=== PATIENT | male | born 1970 | race Hispanic/Latino ===

== ENCOUNTER 2016-04-01 17:09 | Inpatient (IN) | payer OTHER ==
[~2016-04-01] VITALS: Ht 165.1 cm; Wt 80.0 kg
[~2016-04-01 17:09] MED LIST: ACHD5005 PO; AZIT-21 PO; CYCL10TA9 PO; GENT3.5O18 OU; GUAI-549 PO; METH4TAB PO; NAPR-243 PO; NYST15CR3 TP; PENI500T PO; PRCD5U PO; SULF1TAB35 PO; SULF1TAB38 PO
--- OUTSIDE RECORDS SUMMARY | 2016-04-01 17:15 | XMS REPORT | Continuity of Care Document ---
Author Author [facility] Organization [facility] Address Unknown Phone Unavailable Care Team Providers Care Digital Strategy Director Name Role Phone NO, LOCAL PHYSICIAN PP Unavailable Insurance Providers Payer Name Policy Number Subscriber Name Relationship Self Pay Oswaldo Coronado Jr 01 Self / Same As Patient Advance Directives Directive Response Recorded Date Advance Directives N 10/07/12 1:38pm Problems No Known Problems or Medical conditions. Social History History Response Recorded Date/Time Alcohol Use Occasionally Uses 10/07/12 1: 38pm Recreational Drug Use N 10/07/12 1:38pm Allergies, Adverse Reactions, Alerts Allergen Type Severity Reaction Last Updated NKDA Allergy Mild 12/13/08 Medications Medication Dose Units Route Sig Qty Days Azithromycin (Zithromax Tab) 0 PO Z-MARC 6 Promethazine HCl/Codeine (Phenergan W/Codeine Syrup) 5 5ML PO QID 120 Guaifenesin/D-Methorphan Hb/Pe (Tussin Cf Cough & Cold Liquid) 118 Ml PO Response Recorded Date/Time Status not known Unknown Results Test Date Result Interp. Ref. Range Alanine Aminotransferase (ALT/SGPT) May 06, 2011 11: 10pm 72 U/L H 30-65 Albumin May 06, 2011 11:10pm 3.5 G/ DL N 3.4-5.0 Alkaline Phosphatase May 06, 2011 11:10pm 107 U/L N 50-136 Amylase Level February 27, 2008 9:45pm 72 U/L N 25-115 Anisocytosis May 06, 2011 11:10pm SLIGHT - Aspartate Amino Transf (AST/SGOT) May 06, 2011 11:10pm 49 U/L H 15-37 B-Type Natriuretic Peptide May 06, 2011 11:10pm 9.0 PG/ML N 5.0-100.0 BUN/Creatinine Ratio May 06, 2011 11:10pm 10 - Band Neutrophils May 06, 2011 11:10pm 4 % - Basophils # (Auto) May 06, 2011 11:10pm 0.0 10^3/uL N 0.0-0.1 Basophils % (Manual) May 06, 2011 11:10pm 0 % - Basophils (%) (Auto) May 06, 2011 11:10pm 0 % N 0-10 Blood Urea Nitrogen May 06, 2011 11:10pm 9 MG/DL N 7-18 Calcium Level May 06, 2011 11:10pm 7.3 MG/DL L 8.5-10.1 Carbon Dioxide Level May 06, 2011 11:10pm 27 MMOL/L N 21-32 Chloride Level May 06, 2011 11:10pm 100 MMOL/L L 101-110 Creatine Kinase MB May 06, 2011 11:10pm 3.9 NG/ML H 0.0-3.6 Creatinine May 06, 2011 11:10pm 0.9 MG/DL N 0.6-1.3 Eosinophils # (Auto) May 06, 2011 11:10pm 0.2 10^3/uL N 0.0-0.3 Eosinophils % (Manual) May 06, 2011 11:10pm 1 % - Eosinophils (%) (Auto) May 06, 2011 11:10pm 2 % N 0-10 Glucose Level May 06, 2011 11:10pm 134 MG/DL H 74-106 Hematocrit May 06, 2011 11:10pm 39 % L 40-54 Hemoglobin May 06, 2011 11:10pm 13.4 G/DL N 13.3-17.7 Lipase February 27, 2008 9:45pm 243 U/L N 114-286 Lymphocytes # (Auto) May 06, 2011 11:10pm 1.9 X 10^3 N 1.0-4.0 Lymphocytes % (Manual) May 06, 2011 11:10pm 31 % - Lymphocytes (%) (Auto) May 06, 2011 11:10pm 23 % N 12-44 Mean Corpuscular Hemoglobin May 06, 2011 11:10pm 29 PG N 25-34 Mean Corpuscular Hemoglobin Concent May 06, 2011 11: 10pm 34 G/DL N 32-36 Mean Corpuscular Volume May 06, 2011 11:10pm 83 FL N 80-99 Mean Platelet Volume May 06, 2011 11:10pm 10.0 FL N 7.4-10.4 Monocytes # (Auto) May 06, 2011 11:10pm 0.7 X 10^3 N 0.0-1.0 Monocytes % (Manual) May 06, 2011 11:10pm 6 % - Monocytes (%) (Auto) May 06, 2011 11:10pm 9 % N 0-12 Neutrophils # (Auto) May 06, 2011 11:10pm 5.4 X 10^3 N 1.8-7.8 Neutrophils % (Manual) May 06, 2011 11:10pm 58 % - Neutrophils (%) (Auto) May 06, 2011 11:10pm 66 % N 42-75 Platelet Count May 06, 2011 11:10pm 176 10^3/uL N 130-400 Potassium Level May 06, 2011 11:10pm 3.5 MMOL/L L 3.6-5.0 Reactive Lymphocytes February 27, 2008 9:40pm 5 % - Red Blood Count May 06, 2011 11:10pm 4.69 10^6/uL N 4.35-5.85 Red Cell Distribution Width May 06, 2011 11:10pm 13.7 % N 10.0-14.5 Sodium Level May 06, 2011 11:10pm 137 MMOL/L N 135-145 Total Bilirubin May 06, 2011 11:10pm 0.3 MG/DL N 0.0-1.0 Total Creatine Kinase May 06, 2011 11:10pm 540 U/L H 1-205 Total Protein May 06, 2011 11:10pm 7.2 G/DL N 6.4-8.2 Troponin I May 06, 2011 11:10pm < 0.10 NG/ML 0.00-0.10 Urine Bacteria December 03, 2008 12:01pm NEGATIVE - Urine Bilirubin December 03, 2008 12:01pm NEGATIVE - Urine Casts December 03, 2008 12:01pm NONE - Urine Clarity December 03, 2008 12:01pm CLEAR - Urine Color December 03, 2008 12:01pm YELLOW - Urine Crystals December 03, 2008 12:01pm NONE - Urine Culture Indicated December 03, 2008 12:01pm NO - Urine Glucose (UA) December 03, 2008 12:01pm NEGATIVE - Urine Ketones December 03, 2008 12:01pm NEGATIVE - Urine Leukocyte Esterase December 03, 2008 12:01pm NEGATIVE - Urine Mucus December 03, 2008 12:01pm NEGATIVE - Urine Nitrite December 03, 2008 12:01pm NEGATIVE - Urine Protein December 03, 2008 12:01pm NEGATIVE - Urine RBC December 03, 2008 12:01pm NONE /HPF - Urine Specific [place] December 03, 2008 12:01pm 1.015 L - Urine Squamous Epithelial Cells December 03, 2008 12:01pm NONE - Urine Urobilinogen December 03, 2008 12:01pm NORMAL MG/DL - Urine WBC December 03, 2008 12:01pm NONE /HPF - Urine pH December 03, 2008 12:01pm 6.5 - White Blood Count May 06, 2011 11:10pm 8.2 10^3/uL N 4.3-11.0 Serum Alcohol May 06, 2011 11:10pm 254 MG/DL H -5 Lab Scanned Report March 02, 2010 3:56pm Referred Lab Report [id number] - Estimat Glomerular Filtration Rate May 06, 2011 11: 10pm > 60 - Blood Morphology Comment February 27, 2008 9:40pm Normal - Creatine Kinase March 02, 2010 4:25pm 69 mg/dl N 21-170 Cardiac Panel Pathologist Review March 02, 2010 4:25pm SEE CARDIAC PATH REV - Urine RBC (Auto) December 03, 2008 12:01pm NEGATIVE - Procedures Procedure Code Date Influenza Types A,B Antigen (LAURA) 03/02 Encounters Encounter Location Date/Time Registered Emergency Room [facility] 10/07/12 1:32pm Departed Emergency Room [facility] 05/03 10:58pm
--- NOTE | 2016-04-01 17:44 | ED Lower Extremity ---
General Chief Complaint: Lower Extremity Stated Complaint: R LEG SWELLING/PAIN Source: patient Exam Limitations: no limitations History of Present Illness Time seen by provider: 17:43 Initial Comments To ER with right leg swelling and pain for the past 4 days. He states this swelling improves dramatically when he raises the right leg. He's had fevers and chills as well. He states that he did step on a piece of glass on the lateral aspect of the right foot a few weeks ago but he was able to remove the glass and had no problems. Febrile at 101 upon arrival to ER. He was incarcerated from February 12 to March 15. During that period of time he received a prescription for a course of steroids for pain and tingling in his right leg but he denies any redness or rash at that time. He's been off steroids since getting out of [facility] on Mar.15. He does not have a family physician Onset: just prior to arrival Severity: moderate Pain/Injury Location: right leg Method of Injury: unknown Modifying Factors: Worse With Movement Allergies and Home Medications Allergies Coded Allergies: No Known Drug Allergies (Unverified , 07/23/13) Home Medications Cyclobenzaprine Hcl 10 Mg Tablet #15 1 EACH PO Q8HR Prescribed by: STEWART REBOLLAR on 07/23/13 1125 Naproxen 500 Mg Tablet #20 1 EACH PO TID PRN PRN PAIN FOR PAIN Prescribed by: STEWART REBOLLAR on 07/23/13 1125 Sulfamethoxazole/Trimethoprim 1 Each Tablet #40 2 TAB PO BID FOR INFECTION Prescribed by: STEWART REBOLLAR on 07/23/13 1125 Constitutional: see HPI EENTM: see HPI Respiratory: no symptoms reported Cardiovascular: no symptoms reported Genitourinary: no symptoms reported Musculoskeletal: no symptoms reported Skin: see HPI Psychiatric/Neurological: No Symptoms Reported Past Pxpwkgs-Gkrgjp-Vngmob Hx Patient Social History Recent Foreign Travel: No Contact w/Someone Who Travel: No Immunizations Up To Date Tetanus Booster (TDap): Less than 5yrs Surgeries HX Surgeries: Yes (OPEN HEART SURGERY AT AGE 3) Respiratory Hx Respiratory Disorders: No Cardiovascular Hx Cardiac Disorders: Yes (AGE 3 OPEN HEART SURGERY) Neurological Hx Neurological Disorders: No Reproductive System Hx Reproductive Disorders: No Genitourinary Hx Genitourinary Disorders: No Gastrointestinal Hx Gastrointestinal Disorders: No Musculoskeletal Hx Musculoskeletal Disorders: No Endocrine Hx Endocrine Disorders: No HEENT HX ENT Disorders: No Cancer Hx Cancer: No Psychosocial Hx Psychiatric Problems: No Integumentary HX Skin/Integumentary Disorder: No Blood Transfusions Hx Blood Disorders: No Family Medical History Significant Family History: No Pertinent Family Hx Physical Exam Vital Signs Vital Sign - Last 12Hours 04/01/16 17:45 Temp 101.0 Pulse 88 Resp 16 B/P 144/83 Pulse Ox 97 O2 Delivery Room Air Capillary Refill : General Appearance: WD/WN no apparent distress HEENT: PERRL/EOMI normal ENT inspection Neck: non-tender full range of motion Respiratory: no respiratory distress no accessory muscle use Hips: bilateral hip non-tender, bilateral hip normal inspection, bilateral hip normal range of motion Legs: right leg pain, right leg soft tissue tenderness, right leg swelling, right leg other (right leg is warm compared to the left, markedly swollen compared to the left, tender and erythematous.) Knees: bilateral knee non-tender, bilateral knee normal inspection, bilateral knee normal range of motion Ankles: bilateral ankle non-tender, bilateral ankle normal inspection, bilateral ankle normal range of motion Feet: bilateral foot non-tender, bilateral foot normal inspection, bilateral foot normal range of motion, bilateral foot other (the aforementioned area over the fifth metatarsal on the foot where he stepped on glass appears healed and without erythema or fluctuance. ) Neurologic/Psychiatric: alert normal mood/affect oriented x 3 Skin: normal color warm/dry Progress/Results/Core Measures Results/Orders Lab Results Laboratory Tests Test 04/01/16 17:35 04/01/16 17:45 Range/Units Anion Gap 11 5-14 MMOL/L BUN/Creatinine Ratio 20 Basophils # (Auto) 0.0 0.0-0.1 10^3/uL Basophils (%) (Auto) 0 0-10 % Blood Urea Nitrogen 21 H 7-18 MG/DL Calcium Level 8.7 8.5-10.1 MG/DL Carbon Dioxide Level 22 21-32 MMOL/L Chloride Level 98 98-107 MMOL/L Creatinine 1.05 0.60-1.30 MG/DL Eosinophils # (Auto) 0.0 0.0-0.3 10^3/uL Eosinophils (%) (Auto) 0 0-10 % Estimat Glomerular Filtration Rate > 60 Glucose Level 131 H 70-105 MG/DL Hematocrit 39 L 40-54 % Hemoglobin 13.3 13.3-17.7 G/DL Lymphocytes # (Auto) 1.1 1.0-4.0 X 10^3 Lymphocytes (%) (Auto) 6 L 12-44 % Mean Corpuscular Hemoglobin 28 25-34 PG Mean Corpuscular Hemoglobin Concent 35 32-36 G/DL Mean Corpuscular Volume 80 80-99 FL Mean Platelet Volume 10.7 H 7.4-10.4 FL Monocytes # (Auto) 1.1 H 0.0-1.0 X 10^3 Monocytes (%) (Auto) 6 0-12 % Neutrophils # (Auto) 15.9 H 1.8-7.8 X 10^3 Neutrophils (%) (Auto) 88 H 42-75 % Platelet Count 230 130-400 10^3/uL Potassium Level 3.7 3.6-5.0 MMOL/L Red Blood Count 4.83 4.35-5.85 10^6/uL Red Cell Distribution Width 14.0 10.0-14.5 % Sodium Level 131 L 135-145 MMOL/L White Blood Count 18.0 H 4.3-11.0 10^3/uL Lactic Acid Level 2.0 0.5-2.0 MMOL/L My Orders Orders-MARJ BARDALES APRN Cbc With Automated Diff (04/01/16 17:39) Basic Metabolic Panel (04/01/16 17:39) Saline Lock/Iv-Start (04/01/16 17:39) Blood Culture (04/01/16 17:39) Lactic Acid Analyzer (04/01/16 17:39) Fentanyl Injection (Sublimaze Injection (04/01/16 17:45) Clindamycin 900 Mg/50 Ml Ivpb (Cleocin P (04/01/16 17:45) Us Venous Lower Ext Rt (04/01/16 17:44) Ibuprofen Tablet (Motrin Tablet) (04/01/16 18:00) Vancomycin Injection (Vancomycin Injecti (04/01/16 18:00) Vancomycin Injection (Vancomycin Injecti (04/01/16 18:00) Manual Differential (04/01/16 17:35) Medications Given in ED Current Medications Medications Dose Ordered Sig/Nelson Route Start Time Stop Time Status Last Admin Dose Admin Fentanyl Citrate 50 mcg ONCE ONCE IVP 04/01/16 17:45 04/01/16 17:46 DC 04/01/16 18:17 50 MCG Ibuprofen 800 mg ONCE ONCE PO 04/01/16 18:00 04/01/16 18:01 DC 04/01/16 18:19 800 MG Vital Signs/I&O Vital Sign - Last 12Hours 04/01/16 17:45 Temp 101.0 Pulse 88 Resp 16 B/P 144/83 Pulse Ox 97 O2 Delivery Room Air Diagnostic Imaging Diagonstic Imaging: Ultrasound Comments NAME: PENNY CORONADO [facility] REC#: [id number] PT STATUS: ADM IN : 1970 PHYSICIAN: MARJ BARDALES APRN ADMIT DATE: 04/01/16/4TH Draft Date of Exam:04/01/16 US VENOUS LOWER EXT RT PROCEDURE: US right lower extremity venous. INDICATION: Swelling, redness EXAMINATION: Right lower extremity venous Doppler 04/01/2016 TECHNIQUE: Waveform and spectral analysis of the lower extremity venous structures. FINDINGS: There is no evidence for deep vein thrombosis with normal compressibility, augmentation and spontaneity of all visualized venous structures. IMPRESSION: 1. No evidence for deep vein thrombosis. Dictated on workstation # [id number] Dict: 04/01/161811 Trans: 04/01/16 1835 [facility] [id number] Interpreted by: MELANIE ARANA MD Electronically signed by: Departure Communication Time/Spoke to Admitting Phy: 18:28 Communication I spoke with Dr. Espinal. We will admit the patient for IV Ancef. Impression Impression: Primary Impression: Cellulitis of right lower extremity Disposition: HOME, SELF-CARE Condition: Stable Decision to Admit Reason: Admit from ER (General) Decision to Admit/Date: Apr 01, 2016 Time/Decision to Admit Time: 18:15 Departure-Patient Inst. Referrals: NO,LOCAL PHYSICIAN (PCP/Family) Primary Care Physician MARJ BARDALES APRN Apr 01, 2016 17:44
[2016-04-01] MEDS ORDERED: CLINDAMYCIN 900 MG/50 ML IVPB 50 ML IV ONE (17:45)
[2016-04-01] MEDS ORDERED: fentaNYL INJECTION 100 MCG/2 ML AMP IVP ONE (17:45)
[2016-04-01 17:51] LABS: BASOPHILS % (AUTO) 0 % (0-10); EOSINOPHILS % (AUTO) 0 % (0-10); LYMPHOCYTES # (AUTO) 1.1 X 10^3 (1.0-4.0); LYMPHOCYTES % (AUTO) 6 % (12-44); MEAN CORPUSCULAR HEMOGLOBIN 28 PG (25-34); MEAN CORPUSCULAR HGB CONC 35 G/DL (32-36); MEAN CORPUSCULAR VOLUME 80 FL (80-99); MEAN PLATELET VOLUME 10.7 FL (7.4-10.4); MONOCYTES # (AUTO) 1.1 X 10^3 (0.0-1.0); MONOCYTES % (AUTO) 6 % (0-12); NEUTROPHILS # (AUTO) 15.9 X 10^3 (1.8-7.8); NEUTROPHILS % (AUTO) 88 % (42-75); PLATELET COUNT 230 10^3/uL (130-400); RED BLOOD COUNT 4.83 10^6/uL (4.35-5.85)
[2016-04-01] MEDS ORDERED: VANCOMYCIN INJECTION 1,250 MG in NS (IVPB) 250 ML IV SCH ×4 (18:00)
[2016-04-01] MEDS ORDERED: IBUPROFEN 800 MG (MOTRIN) TAB PO ONE (18:00)
[2016-04-01 18:07] LABS: ANION GAP 11 MMOL/L (5-14); BLOOD UREA NITROGEN 21 MG/DL (7-18); BUN/CREATININE RATIO 20; CALCIUM 8.7 MG/DL (8.5-10.1); CARBON DIOXIDE 22 MMOL/L (21-32); CHLORIDE 98 MMOL/L (98-107); CREATININE SERUM 1.05 MG/DL (0.60-1.30); GFR ESTIMATED > 60; GLUCOSE 131 MG/DL (70-105); POTASSIUM 3.7 MMOL/L (3.6-5.0); SODIUM 131 MMOL/L (135-145)
[2016-04-01] MEDS ORDERED: ceFAZolin INJECTION 1,000 MG in NORMAL SALINE (BAXTER MINI) 50 ML IV ONE (18:30)
--- NOTE | 2016-04-01 18:36 | Diagnostic Imaging Report ---
PROCEDURE: US right lower extremity venous. INDICATION: Swelling, redness EXAMINATION: Right lower extremity venous Doppler 04/01/2016 TECHNIQUE: Waveform and spectral analysis of the lower extremity venous structures. FINDINGS: There is no evidence for deep vein thrombosis with normal compressibility, augmentation and spontaneity of all visualized venous structures. IMPRESSION: 1. No evidence for deep vein thrombosis. Dictated by: Dictated on workstation # [id number]
[2016-04-01 19:06] VITALS: BP 106/67
[2016-04-01] MEDS ORDERED: CATHETER FLUSH 10 ML SYR IV PRN (20:45)
[2016-04-01 22:00] LABS: EOSINOPHILS % (MANUAL) 6 %; LYMPHOCYTES % (MANUAL) 9 %; NEUTROPHILS % (MANUAL) 80 %
[2016-04-01] MEDS: CATHETER FLUSH 10 ML SYR IV SCH (22:00)
[2016-04-01] MEDS: NS IV 1000 ML 1,000 ML IV SCH (22:01)
[2016-04-01] MEDS: LACTOBACILLUS Acidoph/Bulgar (LACTINEX/FLORANEX) TAB PO SCH (22:04)
[2016-04-01] MEDS: ceFAZolin 1 GM/NS 50 ML IVPB IV SCH ×2 (22:05)
[2016-04-02] VITALS (7 sets, daily range): BP systolic 112–134; BP diastolic 57–73
[2016-04-02] MEDS: ACETAMINOPHEN 325 MG TABLET/CAPLET (TYLENOL) PO PRN ×2 (04:42→13:51)
[2016-04-02 05:14] LABS: BASOPHILS % (AUTO) 0 % (0-10); EOSINOPHILS # (AUTO) 0.1 10^3/uL (0.0-0.3); EOSINOPHILS % (AUTO) 0 % (0-10); LYMPHOCYTES # (AUTO) 1.1 X 10^3 (1.0-4.0); LYMPHOCYTES % (AUTO) 6 % (12-44); MEAN CORPUSCULAR HEMOGLOBIN 27 PG (25-34); MEAN CORPUSCULAR HGB CONC 34 G/DL (32-36); MEAN CORPUSCULAR VOLUME 80 FL (80-99); MEAN PLATELET VOLUME 10.5 FL (7.4-10.4); MONOCYTES # (AUTO) 1.2 X 10^3 (0.0-1.0); MONOCYTES % (AUTO) 7 % (0-12); NEUTROPHILS # (AUTO) 15.4 X 10^3 (1.8-7.8); NEUTROPHILS % (AUTO) 87 % (42-75); PLATELET COUNT 202 10^3/uL (130-400); RED BLOOD COUNT 4.49 10^6/uL (4.35-5.85); RED CELL DISTRIBUTION WIDTH 13.9 % (10.0-14.5); WHITE BLOOD COUNT 17.8 10^3/uL (4.3-11.0)
[2016-04-02] MEDS: CATHETER FLUSH 10 ML SYR IV SCH ×3 (05:45→21:15)
[2016-04-02] MEDS: ceFAZolin 1 GM/NS 50 ML IVPB IV SCH ×6 (05:48→21:15)
[2016-04-02] MEDS: NS IV 1000 ML 1,000 ML IV SCH ×2 (05:49→08:21)
[2016-04-02] MEDS ORDERED: FLU TRIvalent (5 YOA+) 2016-17 (AFLURIA) 0.5 ML IM ONE (07:15)
[2016-04-02] MEDS: LACTOBACILLUS Acidoph/Bulgar (LACTINEX/FLORANEX) TAB PO SCH ×2 (08:21→21:15)
[2016-04-02] MEDS: IBUPROFEN 800 MG (MOTRIN) TAB PO PRN ×2 (08:29→19:13)
--- NOTE | 2016-04-02 12:21 | History & Physical-Hospitalist ---
HPI History of Present Illness: HPI/Chief Complaint this is a 45-year-old male who presents with a 2-3 day history of increased right leg pain swelling and erythema. He had had an injury by stepping on some glass about 2-3 days prior to the pain and swelling of his leg. He does not have a car and has to walk everywhere he goes. pain had finally gotten so bad that he was unable to ambulate. Venous Doppler was negative for DVT. This morning the leg is less erythematous is afebrile with a white count remains elevated at 17,000 Source: patient Exam Limitations: no limitations Date Seen 04/02/16 Attending Physician Lizzy Ball MD PCP No,Local Physician Referring Physician Date of Admission Apr 01, 2016 at 18:11 Home Medications & Allergies Home Medications Reviewed patient Home Medication Reconciliation Form Allergies Coded Allergies: No Known Drug Allergies (Unverified , 07/23/13) Past Ummrall-Megnae-Izoiiw Hx Patient Social History Marrital Status: single Employed/Student: unemployed Alcohol Use: Occasionally Uses Recreational Drug Use: No Smoking Status: Never a Smoker Physical Abuse Screen: No Sexual Abuse: No Recent Foreign Travel: No Contact w/other who traveled: No Recent Hopitalizations: No Recent Infectious Disease Expo: No Immunizations Up To Date Tetanus Booster (TDap): Less than 5yrs Seasonal Allergies Seasonal Allergies: No Surgeries HX Surgeries: Yes (OPEN HEART SURGERY AT AGE 3) Surgeries: Valve Replacement Respiratory Hx Respiratory Disorders: No Cardiovascular Hx Cardiovascular Disorders: Yes (AGE 3 OPEN HEART SURGERY) Cardiac Disorders: Valvular Heart Disease Neurological Hx Neurological Disorders: No Reproductive System Hx Reproductive Disorders: No Genitourinary Hx Genitourinary Disorders: No Gastrointestinal Hx Gastrointestinal Disorders: No Musculoskeletal Hx Musculoskeletal Disorders: No Endocrine Hx Endocrine Disorders: No HEENT HX ENT Disorders: No Cancer Hx Cancer: No Psychosocial Hx Psychiatric Problems: No Integumentary HX Skin/Integumentary Disorder: No Blood Transfusions Hx Blood Disorders: No Adverse Reaction to a Blood Tr: No Family Medical History Significant Family History: No Pertinent Family Hx Family Hx: Diabetes mellitus 19 MOTHER Hypertension 19 FATHER 19 MOTHER Review of Systems Constitutional: fever EENTM: no symptoms reported Respiratory: no symptoms reported Cardiovascular: no symptoms reported Gastrointestinal: no symptoms reported Genitourinary: no symptoms reported Musculoskeletal: muscle pain Skin: change in color Psychiatric/Neurological: No Symptoms Reported Physical Exam Physical Exam Vital Signs Vital Sign - Last 12Hours 04/01/16 17:45 Temp 101.0 Pulse 88 Resp 16 B/P 144/83 Pulse Ox 97 O2 Delivery Room Air Capillary Refill : Greater Than 3 Seconds General Appearance: No Apparent Distress HEENT: Normal ENT Inspection Respiratory: Lungs Clear Normal Breath Sounds No Accessory Muscle Use No Respiratory Distress Cardiovascular: Regular Rate, Rhythm No Gallop Systolic Murmur (03/17) Gastrointestinal: Non Tender Soft Extremity: Calf Tenderness Inflammation Other (diffuse erythema with almost bullous formation down from yesterday) Neurologic/Psychiatric: Alert Oriented x3 No Motor/Sensory Deficits Normal Mood/Affect body maker II-XII Norm as Tested Skin: Erythema Results Results/Procedures Lab Laboratory Tests 04/01/16 17:35 04/02/16 05:00 Assessment/Plan Admission Diagnosis 1. cellulitis most consistent with strep organism-on Ancef day number 2 with improvement 2. 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 Poor social situation-social work consult in the morning 4. mild hyperglycemia we'll check a hemoglobin A1c Clinical Quality Measures DVT/VTE Risk/Contraindication: Risk Factor Score Per Nursin RFS Level Per Nursing on Admit: 3=High LIZZY BALL MD Apr 02, 2016 12:21
[2016-04-02] MEDS: ENOXAPARIN 40 MG/0.4 ML (LOVENOX) SYR SC SCH (13:34)
[2016-04-03] MEDS: ACETAMINOPHEN 325 MG TABLET/CAPLET (TYLENOL) PO PRN ×2 (01:26→21:12)
[2016-04-03 03:55] VITALS: BP 119/76
[2016-04-03 05:17] LABS: BASOPHILS % (AUTO) 0 % (0-10); EOSINOPHILS # (AUTO) 0.1 10^3/uL (0.0-0.3); EOSINOPHILS % (AUTO) 1 % (0-10); LYMPHOCYTES # (AUTO) 1.5 X 10^3 (1.0-4.0); LYMPHOCYTES % (AUTO) 11 % (12-44); MEAN CORPUSCULAR HEMOGLOBIN 27 PG (25-34); MEAN CORPUSCULAR HGB CONC 34 G/DL (32-36); MEAN CORPUSCULAR VOLUME 82 FL (80-99); MEAN PLATELET VOLUME 11.1 FL (7.4-10.4); MONOCYTES # (AUTO) 1.3 X 10^3 (0.0-1.0); MONOCYTES % (AUTO) 9 % (0-12); NEUTROPHILS # (AUTO) 11.4 X 10^3 (1.8-7.8); NEUTROPHILS % (AUTO) 80 % (42-75); PLATELET COUNT 237 10^3/uL (130-400); RED BLOOD COUNT 4.46 10^6/uL (4.35-5.85); RED CELL DISTRIBUTION WIDTH 14.2 % (10.0-14.5); WHITE BLOOD COUNT 14.3 10^3/uL (4.3-11.0)
[2016-04-03] MEDS: ceFAZolin 1 GM/NS 50 ML IVPB IV SCH ×6 (05:22→21:03)
[2016-04-03] MEDS: CATHETER FLUSH 10 ML SYR IV SCH ×3 (05:22→21:03)
[2016-04-03 05:38] LABS: ANION GAP 7 MMOL/L (5-14); BLOOD UREA NITROGEN 10 MG/DL (7-18); BUN/CREATININE RATIO 13; CALCIUM 8.5 MG/DL (8.5-10.1); CARBON DIOXIDE 25 MMOL/L (21-32); CHLORIDE 102 MMOL/L (98-107); CREATININE SERUM 0.76 MG/DL (0.60-1.30); GFR ESTIMATED > 60; GLUCOSE 115 MG/DL (70-105); POTASSIUM 3.1 MMOL/L (3.6-5.0); SODIUM 134 MMOL/L (135-145)
[2016-04-03 08:00] VITALS: BP 117/63
--- NOTE | 2016-04-03 08:59 | Progress Note-Hospitalist ---
Subjective HPI/CC On Admission this is a 45-year-old male who presents with a 2-3 day history of increased right leg pain swelling and erythema. He had had an injury by stepping on some glass about 2-3 days prior to the pain and swelling of his leg. He does not have a car and has to walk everywhere he goes. pain had finally gotten so bad that he was unable to ambulate. Venous Doppler was negative for DVT. This morning the leg is less erythematous is afebrile with a white count remains elevated at 17,000 Date Seen 04/03/16 Subjective/Events-last exam patient complains primarily of her right leg pain but on appearance looks better. Discussed with him that he is diabetic, he acknowledges that all of his family is diabetic so he is not surprised. Review of Systems Musculoskeletal: : leg pain Objective Exam Vital Signs Vital Sign - Last 12Hours 04/01/16 17:45 Temp 101.0 Pulse 88 Resp 16 B/P 144/83 Pulse Ox 97 O2 Delivery Room Air Capillary Refill : Less Than 3 SecondsGreater Than 3 Seconds General Appearance: WD/WN HEENT: Normal ENT Inspection Neck: Supple Respiratory: Lungs Clear Normal Breath Sounds No Accessory Muscle Use No Respiratory Distress Cardiovascular: Regular Rate, Rhythm No Gallop No Murmur Gastrointestinal: Normal Bowel Sounds Soft Extremity: Calf Tenderness Inflammation Pedal Edema Neurologic/Psychiatric: Alert Oriented x3 Normal Mood/Affect Skin: Erythema Rash Results/Procedures Lab Laboratory Tests 04/03/16 04:47 Assessment/Plan Assessment and Plan Assess & Plan/Chief Complaint 1. severe cellulitis pulses are intact most likely secondary to strep organism day number 3 Ancef 2. Newly diagnosed type II diabetes. We'll begin diabetes education and begin metformin. He will need rn social work since he has no insurance ANDRIY BALL MD Apr 03, 2016 8:59 am
[2016-04-03] MEDS: LACTOBACILLUS Acidoph/Bulgar (LACTINEX/FLORANEX) TAB PO SCH ×2 (09:56→21:03)
[2016-04-03 12:00] VITALS: BP 140/77
[2016-04-03] MEDS: KCL 20 MEQ TAB (K-DUR) PO SCH (12:14)
[2016-04-03] MEDS: ENOXAPARIN 40 MG/0.4 ML (LOVENOX) SYR SC SCH (12:14)
[2016-04-03] MEDS ORDERED: IBUP-30 PO (12:28)
[2016-04-03] MEDS ORDERED: ACET-2267 PO (12:28)
[2016-04-03] MEDS: IBUPROFEN 800 MG (MOTRIN) TAB PO PRN (15:46)
[2016-04-03 16:21] VITALS: BP 127/64
[2016-04-03] MEDS: metFORMIN 500 MG (GLUCOPHAGE) TAB PO SCH (16:33)
[2016-04-03 20:00] VITALS: BP 122/72
[2016-04-03] MEDS ORDERED: NORMAL SALINE (BAXTER MINI) 50 ML IV ONE (20:43)
[2016-04-03] MEDS ORDERED: ceFAZolin 1,000 MG (ANCEF) VIAL ONE (20:43)
[2016-04-03 22:00] VITALS: BP 122/72
[2016-04-04] VITALS (7 sets, daily range): BP systolic 116–145; BP diastolic 57–88
[2016-04-04] MEDS: IBUPROFEN 800 MG (MOTRIN) TAB PO PRN ×4 (00:36→23:52)
[2016-04-04] MEDS ORDERED: ceFAZolin 1,000 MG (ANCEF) VIAL ONE ×2 (04:39→21:01)
[2016-04-04] MEDS ORDERED: NORMAL SALINE (BAXTER MINI) 50 ML IV ONE ×2 (04:39→21:02)
[2016-04-04] MEDS: ceFAZolin 1 GM/NS 50 ML IVPB IV SCH ×6 (05:33→21:29)
[2016-04-04] MEDS: CATHETER FLUSH 10 ML SYR IV SCH ×3 (05:33→21:30)
[2016-04-04] MEDS: KCL 20 MEQ TAB (K-DUR) PO SCH (06:13)
[2016-04-04] MEDS: metFORMIN 500 MG (GLUCOPHAGE) TAB PO SCH ×2 (06:13→16:56)
[2016-04-04] MEDS: LACTOBACILLUS Acidoph/Bulgar (LACTINEX/FLORANEX) TAB PO SCH ×2 (08:04→21:29)
--- NOTE | 2016-04-04 11:02 | Progress Note-Hospitalist ---
Standard Progress Note Progress Notes/Assess & Plan Date Seen 04/04/16 Diagnosis 1. cellulitis most consistent with strep organism-on Ancef day number 2 with improvement 2. 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 Poor social situation-social work consult in the morning 4. mild hyperglycemia we'll check a hemoglobin A1c Assess & Plan/Chief Complaint The patient reports his leg to be less painful today. 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 His white blood count has continued to decline during the hospitalization. It is also noted that his blood sugars appear controlled on metformin alone. He reports that the virtually everyone in his family has adult onset diabetes. Physical exam: He is alert and oriented lungs are clear to auscultation. CV is regular without murmur. Examination of the right lower extremity shows that the erythema has clearly retreated from the permanent markings placed at admission. At this point he remains quite erythematous and tender and warm beginning at about 10 cm from the tibial tuberosity and downward to the malleolus. The calf itself is tightly swollen. There is a linear blister/ ulceration on the posterior calf which she has a rockwell exudate at this point does not appear to be dripping. Impression: Cellulitis right lower extremity, improving 2.new diagnosis diabetes mellitus type II, non-insulin requiring. Plan: The patient will remain inpatient until the erythema is virtually gone and the right calf approximates the diameter of the left. Labs Laboratory Tests 04/03/16 04:47 WILLIAM KISER MD Apr 04, 2016 11:02
[2016-04-04] MEDS: ENOXAPARIN 40 MG/0.4 ML (LOVENOX) SYR SC SCH (11:36)
[2016-04-05 03:44] VITALS: BP 139/86
[2016-04-05] MEDS ORDERED: ceFAZolin 1,000 MG (ANCEF) VIAL ONE (03:44)
[2016-04-05] MEDS ORDERED: NORMAL SALINE (BAXTER MINI) 50 ML IV ONE (03:45)
[2016-04-05] MEDS: metFORMIN 500 MG (GLUCOPHAGE) TAB PO SCH ×2 (06:15→17:02)
[2016-04-05] MEDS: ceFAZolin 1 GM/NS 50 ML IVPB IV SCH ×2 (06:15)
[2016-04-05] MEDS: KCL 20 MEQ TAB (K-DUR) PO SCH (06:15)
[2016-04-05] MEDS: CATHETER FLUSH 10 ML SYR IV SCH ×3 (06:15→21:11)
[2016-04-05 07:50] VITALS: BP 154/94
[2016-04-05] MEDS: LACTOBACILLUS Acidoph/Bulgar (LACTINEX/FLORANEX) TAB PO SCH ×2 (08:56→20:23)
[2016-04-05] MEDS: IBUPROFEN 800 MG (MOTRIN) TAB PO PRN ×2 (08:56→20:23)
[2016-04-05 10:36] LABS: BASOPHILS % (AUTO) 0 % (0-10); EOSINOPHILS # (AUTO) 0.1 10^3/uL (0.0-0.3); EOSINOPHILS % (AUTO) 1 % (0-10); LYMPHOCYTES # (AUTO) 1.5 X 10^3 (1.0-4.0); LYMPHOCYTES % (AUTO) 9 % (12-44); MEAN CORPUSCULAR HEMOGLOBIN 27 PG (25-34); MEAN CORPUSCULAR HGB CONC 33 G/DL (32-36); MEAN CORPUSCULAR VOLUME 82 FL (80-99); MEAN PLATELET VOLUME 9.7 FL (7.4-10.4); MONOCYTES % (AUTO) 6 % (0-12); NEUTROPHILS # (AUTO) 13.6 X 10^3 (1.8-7.8); NEUTROPHILS % (AUTO) 84 % (42-75); PLATELET COUNT 363 10^3/uL (130-400); RED BLOOD COUNT 4.73 10^6/uL (4.35-5.85); RED CELL DISTRIBUTION WIDTH 14.2 % (10.0-14.5); WHITE BLOOD COUNT 16.2 10^3/uL (4.3-11.0)
[2016-04-05 10:54] LABS: ALANINE AMINOTRANSFERASE 13 U/L (0-55); ANION GAP 9 MMOL/L (5-14); ASPARTATE AMINO TRANSFERASE 11 U/L (5-34); BILIRUBIN,TOTAL 0.3 MG/DL (0.1-1.0); BLOOD UREA NITROGEN 11 MG/DL (7-18); BUN/CREATININE RATIO 15; CALCIUM 8.9 MG/DL (8.5-10.1); CARBON DIOXIDE 25 MMOL/L (21-32); CHLORIDE 102 MMOL/L (98-107); CREATININE SERUM 0.75 MG/DL (0.60-1.30); GFR ESTIMATED > 60; GLUCOSE 110 MG/DL (70-105); POTASSIUM 4.2 MMOL/L (3.6-5.0); SODIUM 136 MMOL/L (135-145); TOTAL PROTEIN 7.3 G/DL (6.4-8.2)
--- NOTE | 2016-04-05 11:18 | Progress Note-Hospitalist ---
Standard Progress Note Progress Notes/Assess & Plan Date Seen 04/05/16 Diagnosis 1. cellulitis most consistent with strep organism-on Ancef day number 2 with improvement 2. 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 Poor social situation-social work consult in the morning 4. mild hyperglycemia we'll check a hemoglobin A1c Assess & Plan/Chief Complaint The patient reports that his leg generally feels better however when he steps down on the floor he gets pain in the body of the calf muscle. He also notes some throbbing during the night. He is afebrile. His white count has not returned to the normal range and is in fact up today from 14-16,000. Physical exam: Lungs are clear to auscultation. CV is regular without murmur. The right calf is clearly improving with regard to color however it is quite swollen. There is pain to dorsiflexion of the foot. There is some eschar formation on the posterior blister. Impression: Continuing improvement, cellulitis right calf Plan: Continue present IV antibiotics Labs Laboratory Tests 04/05/16 10:25 WILLIAM KISER MD Apr 05, 2016 11:18
[2016-04-05 11:35] VITALS: BP 151/82
[2016-04-05] MEDS: ENOXAPARIN 40 MG/0.4 ML (LOVENOX) SYR SC SCH (12:20)
[2016-04-05] MEDS: ceFAZolin INJECTION 1,000 MG in NORMAL SALINE (BAXTER MINI) 50 ML IV SCH ×2 (13:55→21:11)
[2016-04-05 15:45] VITALS: BP 142/87
[2016-04-05 20:10] VITALS: BP 154/96
[2016-04-05] MEDS: ONDANSETRON 4 MG/2 ML (SDV) Z0FRAN IVP PRN (21:36)
[2016-04-06] VITALS: BP 151/81
[2016-04-06 04:00] VITALS: BP 147/95
[2016-04-06] MEDS: ceFAZolin INJECTION 1,000 MG in NORMAL SALINE (BAXTER MINI) 50 ML IV SCH ×3 (05:41→21:01)
[2016-04-06] MEDS: HYDROcodone/APAP 5 MG/325 MG (LORTAB) TAB PO PRN ×3 (05:44→21:35)
[2016-04-06 05:57] LABS: BASOPHILS % (AUTO) 0 % (0-10); EOSINOPHILS # (AUTO) 0.1 10^3/uL (0.0-0.3); EOSINOPHILS % (AUTO) 1 % (0-10); LYMPHOCYTES # (AUTO) 1.7 X 10^3 (1.0-4.0); LYMPHOCYTES % (AUTO) 15 % (12-44); MEAN CORPUSCULAR HEMOGLOBIN 27 PG (25-34); MEAN CORPUSCULAR HGB CONC 33 G/DL (32-36); MEAN CORPUSCULAR VOLUME 82 FL (80-99); MEAN PLATELET VOLUME 9.4 FL (7.4-10.4); MONOCYTES % (AUTO) 9 % (0-12); NEUTROPHILS # (AUTO) 8.5 X 10^3 (1.8-7.8); NEUTROPHILS % (AUTO) 75 % (42-75); PLATELET COUNT 335 10^3/uL (130-400); RED BLOOD COUNT 4.58 10^6/uL (4.35-5.85); WHITE BLOOD COUNT 11.3 10^3/uL (4.3-11.0)
[2016-04-06] MEDS: KCL 20 MEQ TAB (K-DUR) PO SCH (06:15)
[2016-04-06 06:16] LABS: ALANINE AMINOTRANSFERASE 15 U/L (0-55); ALBUMIN 2.9 G/DL (3.2-4.5); ANION GAP 6 MMOL/L (5-14); ASPARTATE AMINO TRANSFERASE 16 U/L (5-34); BILIRUBIN,TOTAL 0.3 MG/DL (0.1-1.0); BLOOD UREA NITROGEN 12 MG/DL (7-18); BUN/CREATININE RATIO 17; CALCIUM 8.8 MG/DL (8.5-10.1); CARBON DIOXIDE 26 MMOL/L (21-32); CHLORIDE 102 MMOL/L (98-107); CREATININE SERUM 0.71 MG/DL (0.60-1.30); GFR ESTIMATED > 60; GLUCOSE 115 MG/DL (70-105); POTASSIUM 4.3 MMOL/L (3.6-5.0); SODIUM 134 MMOL/L (135-145); TOTAL PROTEIN 7.2 G/DL (6.4-8.2)
[2016-04-06] MEDS: metFORMIN 500 MG (GLUCOPHAGE) TAB PO SCH ×2 (06:16→17:19)
[2016-04-06] MEDS: CATHETER FLUSH 10 ML SYR IV SCH ×3 (06:17→21:01)
[2016-04-06 08:00] VITALS: BP 133/74
[2016-04-06] MEDS: LACTOBACILLUS Acidoph/Bulgar (LACTINEX/FLORANEX) TAB PO SCH ×2 (08:20→20:00)
--- NOTE | 2016-04-06 10:22 | Progress Note-Hospitalist ---
Progress Note HPI/CC on Admission this is a 45-year-old male who presents with a 2-3 day history of increased right leg pain swelling and erythema. He had had an injury by stepping on some glass about 2-3 days prior to the pain and swelling of his leg. He does not have a car and has to walk everywhere he goes. pain had finally gotten so bad that he was unable to ambulate. Venous Doppler was negative for DVT. This morning the leg is less erythematous is afebrile with a white count remains elevated at 17,000 Progress Notes/Assess & Plan Date Seen 04/06/16 Diagonsis/Assessment & Plan Patient doing well since right posterior calf abscess spontaneously ruptured I have consulted wound care for evaluation and management Reports the pain has been much improved but requiring hydrocodone Reviewed all labs noting white count now is 11 No fever, vital signs stable, pleasant, oriented 3 Regular rate and rhythm, clear to auscultation bilaterally Right leg in dressing but picture taken shows wound posterior calf extensive in nature draining serous drainage and improvement of erythema Assessment: Severe right leg cellulitis with abscess status post spontaneous rupture New onset diabetes Plan: Continue IV antibiotics Wound care consult Monitor labs KRISHAN BAR DO Apr 06, 2016 10:22
[2016-04-06] MEDS: ENOXAPARIN 40 MG/0.4 ML (LOVENOX) SYR SC SCH (11:31)
[2016-04-06 12:00] VITALS: BP 137/81
[2016-04-06] MEDS: IBUPROFEN 800 MG (MOTRIN) TAB PO PRN (13:39)
[2016-04-06 17:00] VITALS: BP 152/83
--- NOTE | 2016-04-06 17:51 | Wound Care Progress Note ---
Subjective Subjective Subjective/Events-last exam 45 year old male with previously untreated diabetes mellitus and a progressive inflammation and necrosis of the R calf. Admitted for severe cellulitis, with the only antecedent event being a minor cut to his foot a week ago which has since healed. Severe pain in leg. PMH: Open Heart operation at age 3, Diabetes mellitus, previously unrecognized. SH: Single, non-smoker, unemployed, EtOH+ FH: + DM, + HTN. Review of Systems General: Chills HEENT: No Head Aches Pulmonary: No Dyspnea Cardiovascular: No: Chest Pain Gastrointestinal: No: Nausea Genitourinary: No Dysuria Musculoskeletal: : leg pain Neurological: No: Change in speech, Weakness Skin: recent cut to R foot on glass. Psych: No anxiety or depression. Objective Exam Last Set of Vital Signs Vital Signs Date Time Temp Pulse Resp B/P Pulse Ox O2 Delivery O2 Flow Rate FiO2 04/06/16 12:00 97.3 80 18 137/81 96 Room Air Capillary Refill : Less Than 3 SecondsGreater Than 3 Seconds I&O Intake and Output 04/05/16 23:59 Intake Total 1630 ml Output Total 1472 ml Balance 158 ml Intake Oral 1480 ml IV Total 150 ml Output Urine Total 1472 ml # Voids 2 General: Alert, No Acute Distress HEENT: Atraumatic Neck: Supple Lungs: Normal Air Movement Heart: Regular Rate Abdomen: Normal Bowel Sounds, Soft Extremities: Other (Marked edema and tenderness of R calf.) Skin: Other (Indurated, necrotic area 18 x 7 x 0.3 cm R medial upper calf, with surrounding cyanosis) Results Lab Laboratory Tests 04/06/16 05:33: Glucometer 123H 04/06/16 05:47: Alanine Aminotransferase (ALT/SGPT) 15, Albumin 2.9L, Alkaline Phosphatase 97, Anion Gap 6, Aspartate Amino Transf (AST/SGOT) 16, BUN/Creatinine Ratio 17, Basophils # (Auto) 0.0, Basophils (%) (Auto) 0, Blood Urea Nitrogen 12, Calcium Level 8.8, Carbon Dioxide Level 26, Chloride Level 102, Creatinine 0.71, Eosinophils # (Auto) 0.1, Eosinophils (%) (Auto) 1, Estimat Glomerular Filtration Rate > 60, Glucose Level 115H, Hematocrit 38L, Hemoglobin 12.4L, Lymphocytes # (Auto) 1.7, Lymphocytes (%) (Auto) 15, Mean Corpuscular Hemoglobin 27, Mean Corpuscular Hemoglobin Concent 33, Mean Corpuscular Volume 82, Mean Platelet Volume 9.4, Monocytes # (Auto) 1.0, Monocytes (%) (Auto) 9, Neutrophils # (Auto) 8.5H, Neutrophils (%) (Auto) 75, Platelet Count 335, Potassium Level 4.3, Red Blood Count 4.58, Red Cell Distribution Width 14.0, Sodium Level 134L, Total Bilirubin 0.3, Total Protein 7.2, White Blood Count 11.3H 04/06/16 16:47: Glucometer 101 Microbiology 04/01/16 Blood Culture - Preliminary, Resulted No growth Assessment/Plan Assessment/Plan Assessment/Plan 1. Streptococcal cellulitis of R calf, secondary to cut on foot one week ago. 2. Necrotizing infection of R medial calf. 3. Diabetes mellitus, poorly controlled. Plan: will obtain CT scan of R leg to R/O abscess. Surgical consultation for consideration of debridement in face of necrotizing infection. MAUREEN GARCIA MD Apr 06, 2016 17:51
--- NOTE | 2016-04-06 18:52 | Diagnostic Imaging Report ---
TECHNIQUE: Axially acquired CT was obtained through the right lower extremity without intravenous contrast. Coronal and sagittal reformations were also performed. INDICATION: Stepped on a piece of glass 5 days ago. Now has calf infection. EXAMINATION: CT of the right lower extremity, 04/06/2016. FINDINGS: Osseous structures are intact. Diffuse subcutaneous stranding is seen throughout the subcutaneous soft tissues of the entire visualized lower extremity. Given history, it could be on the basis of cellulitis although edema is another possibility. The most focal collection of fluid is seen within the anterior slightly lateral aspect of the extremity proximally and just below the knee. This area measures approximately 7.7 cm in cranial to caudal dimension and approximately 3.4 cm in AP dimension. This could represent a larger focal collection of fluid/edema. Phlegmonous change or even an early abscess would be difficult to exclude without contrast and clinical correlation and followup would be recommended. No radiopaque foreign bodies are appreciated. IMPRESSION: 1. Diffuse fat stranding about the soft tissues of the entire visualized extremity likely on the basis of either edema or cellulitis. 2. More focal collection of fluid in the anterolateral aspect of the extremity just below the knee, see above discussion. If there is concern for an abscess or an intramuscular abnormality, MRI with contrast would provide better characterization. Dictated by: Dictated on workstation # [id number]
[2016-04-06 20:00] VITALS: BP 139/87
[2016-04-07] VITALS: BP 138/85
--- NOTE | 2016-04-07 00:01 | Wound Care Progress Note ---
Subjective Subjective Subjective/Events-last exam 45 year old male, newly diagnosed with diabetes. Progessive necrotizing lesion of the R posterior calf. Please refer to progress note of same date for further details. Objective Exam Last Set of Vital Signs Vital Signs Date Time Temp Pulse Resp B/P Pulse Ox O2 Delivery O2 Flow Rate FiO2 04/06/16 20:00 98.1 86 18 139/87 95 Room Air Capillary Refill : Less Than 3 SecondsGreater Than 3 Seconds I&O Intake and Output 04/07/16 00:00 Intake Total 1812 ml Output Total 1750 ml Balance 62 ml Intake Oral 1662 ml IV Total 150 ml Output Urine Total 1750 ml # Bowel Movements 2 Results Lab Laboratory Tests 04/06/16 05:33: Glucometer 123H 04/06/16 05:47: Alanine Aminotransferase (ALT/SGPT) 15, Albumin 2.9L, Alkaline Phosphatase 97, Anion Gap 6, Aspartate Amino Transf (AST/SGOT) 16, BUN/Creatinine Ratio 17, Basophils # (Auto) 0.0, Basophils (%) (Auto) 0, Blood Urea Nitrogen 12, Calcium Level 8.8, Carbon Dioxide Level 26, Chloride Level 102, Creatinine 0.71, Eosinophils # (Auto) 0.1, Eosinophils (%) (Auto) 1, Estimat Glomerular Filtration Rate > 60, Glucose Level 115H, Hematocrit 38L, Hemoglobin 12.4L, Lymphocytes # (Auto) 1.7, Lymphocytes (%) (Auto) 15, Mean Corpuscular Hemoglobin 27, Mean Corpuscular Hemoglobin Concent 33, Mean Corpuscular Volume 82, Mean Platelet Volume 9.4, Monocytes # (Auto) 1.0, Monocytes (%) (Auto) 9, Neutrophils # (Auto) 8.5H, Neutrophils (%) (Auto) 75, Platelet Count 335, Potassium Level 4.3, Red Blood Count 4.58, Red Cell Distribution Width 14.0, Sodium Level 134L, Total Bilirubin 0.3, Total Protein 7.2, White Blood Count 11.3H 04/06/16 16:47: Glucometer 101 Microbiology 04/01/16 Blood Culture - Preliminary, Resulted No growth Assessment/Plan Assessment/Plan Assessment/Plan 1. Streptococcal cellulitis of R calf, secondary to cut on foot one week ago. 2. Necrotizing infection of R medial calf. 3. Diabetes mellitus, poorly controlled. Plan: will obtain CT scan of R leg to R/O abscess. Surgical consultation for consideration of debridement in face of necrotizing infection. MAUREEN GARCIA MD Apr 07, 2016 00:01
[2016-04-07] MEDS: CATHETER FLUSH 10 ML SYR IV SCH ×3 (05:10→22:48)
[2016-04-07] MEDS: ceFAZolin INJECTION 1,000 MG in NORMAL SALINE (BAXTER MINI) 50 ML IV SCH ×3 (05:10→22:48)
[2016-04-07] MEDS: HYDROcodone/APAP 5 MG/325 MG (LORTAB) TAB PO PRN ×2 (05:13→18:55)
[2016-04-07] MEDS: IBUPROFEN 800 MG (MOTRIN) TAB PO PRN ×2 (05:43→18:55)
[2016-04-07] MEDS: metFORMIN 500 MG (GLUCOPHAGE) TAB PO SCH ×2 (06:16→18:55)
[2016-04-07] MEDS: KCL 20 MEQ TAB (K-DUR) PO SCH (06:16)
[2016-04-07 06:44] LABS: BASOPHILS % (AUTO) 0 % (0-10); EOSINOPHILS # (AUTO) 0.2 10^3/uL (0.0-0.3); EOSINOPHILS % (AUTO) 2 % (0-10); LYMPHOCYTES # (AUTO) 1.8 X 10^3 (1.0-4.0); LYMPHOCYTES % (AUTO) 16 % (12-44); MEAN CORPUSCULAR HEMOGLOBIN 27 PG (25-34); MEAN CORPUSCULAR HGB CONC 33 G/DL (32-36); MEAN CORPUSCULAR VOLUME 82 FL (80-99); MEAN PLATELET VOLUME 9.6 FL (7.4-10.4); MONOCYTES # (AUTO) 1.1 X 10^3 (0.0-1.0); MONOCYTES % (AUTO) 10 % (0-12); NEUTROPHILS % (AUTO) 72 % (42-75); PLATELET COUNT 310 10^3/uL (130-400); RED BLOOD COUNT 4.32 10^6/uL (4.35-5.85); RED CELL DISTRIBUTION WIDTH 13.7 % (10.0-14.5)
[2016-04-07 07:14] LABS: ALANINE AMINOTRANSFERASE 16 U/L (0-55); ALBUMIN 2.9 G/DL (3.2-4.5); ANION GAP 9 MMOL/L (5-14); ASPARTATE AMINO TRANSFERASE 15 U/L (5-34); BILIRUBIN,TOTAL 0.3 MG/DL (0.1-1.0); BLOOD UREA NITROGEN 14 MG/DL (7-18); BUN/CREATININE RATIO 20; CALCIUM 8.6 MG/DL (8.5-10.1); CARBON DIOXIDE 23 MMOL/L (21-32); CHLORIDE 101 MMOL/L (98-107); CREATININE SERUM 0.69 MG/DL (0.60-1.30); GFR ESTIMATED > 60; GLUCOSE 102 MG/DL (70-105); POTASSIUM 4.3 MMOL/L (3.6-5.0); SODIUM 133 MMOL/L (135-145); TOTAL PROTEIN 7.1 G/DL (6.4-8.2)
[2016-04-07 07:17] LABS: BAND NEUTROPHILS 4 %; BASOPHILS % (MANUAL) 1 %; EOSINOPHILS % (MANUAL) 1 %; LYMPHOCYTES % (MANUAL) 13 %; NEUTROPHILS % (MANUAL) 74 %
[2016-04-07 08:00] VITALS: BP 106/76
[2016-04-07] MEDS: LACTOBACILLUS Acidoph/Bulgar (LACTINEX/FLORANEX) TAB PO SCH ×2 (08:08→20:13)
[2016-04-07] MEDS ORDERED: morphine INJ 4 MG/ML 1 ML (VIAL/SYRINGE) IVP PRN (11:00)
--- NOTE | 2016-04-07 11:25 | Consultation ---
History of Present Illness History of Present Illness Patient Consulted On(jie/time) 04/07/16 11:12 Date of Admission History of Present Illness Surgery asked to consult regarding cellulitis. Pt is a 45 yo male, recently diagnosed with DM. He was initially admitted on with cellulitis and edema of right lower extremity. He states that the "blister" developed since he has been in the hospital. He reports that things are improving; swelling is down, redness has receded and pain is much better. He states pain is now 4-5 out of 10. Pain mostly with palpation but feels a throbbing if he walks on it, or it hangs down. Allergies and Home Medications Allergies Coded Allergies: No Known Drug Allergies (Unverified , 07/23/13) Home Medications Acetaminophen 500 Mg Tablet 1,000 MG PO Q6H PRN PRN PAIN (Reported) TAKES 2 (500MG) TABLETS Ibuprofen 200 Mg Tablet 400-800 MG PO Q8H PRN PRN PAIN (Reported) TAKES 2-4 (200MG) TABLETS Past Eztwxpm-Cmhayr-Hcysbj Hx Patient Social History Alcohol Use: Occasionally Uses Recreational Drug Use: No Smoking Status: Never a Smoker Recent Foreign Travel: No Contact w/Someone Who Travel: No Recent Infectious Disease Expo: No Recent Hopitalizations: No Physical Abuse Screen: No Sexual Abuse: No Immunizations Up To Date Tetanus Booster (TDap): Less than 5yrs PED Vaccines UTD: No Seasonal Allergies Seasonal Allergies: No Surgeries HX Surgeries: Yes (OPEN HEART SURGERY AT AGE 3) Surgeries: Valve Replacement (when he was 3 years old) Respiratory Hx Respiratory Disorders: No Cardiovascular Hx Cardiac Disorders: Yes (AGE 3 OPEN HEART SURGERY) Cardiac Disorders: Valvular Heart Disease Neurological Hx Neurological Disorders: No Reproductive System Hx Reproductive Disorders: No Genitourinary Hx Genitourinary Disorders: No Gastrointestinal Hx Gastrointestinal Disorders: No Musculoskeletal Hx Musculoskeletal Disorders: No Endocrine Hx Endocrine Disorders: Yes Endocrine Disorders: Diabetes, Non-Insulin dep HEENT HX ENT Disorders: No Cancer Hx Cancer: No Psychosocial Hx Psychiatric Problems: No Integumentary HX Skin/Integumentary Disorder: No Blood Transfusions Hx Blood Disorders: No Adverse Reaction to a Blood Tr: No Family Medical History Significant Family History: Diabetes (mother) Family Medial History: Diabetes mellitus 19 MOTHER Hypertension 19 FATHER 19 MOTHER Review of Systems-General Constitutional: No chills, No diaphoresis, No dizziness EENTM: No blurred vision, No dental problems, No ear pain, No hearing loss, No throat pain, No throat swelling Respiratory: No cough, No dyspnea on exertion Cardiovascular: No chest pain, Hx of InterventionNo palpitations Gastrointestinal: No abdominal pain, No constipation, No melena Genitourinary: No discharge, No dysuria, No frequency Musculoskeletal: see HPI Skin: see HPI Psychiatric/Neurological: Denies Anxiety, Denies Depressed, Denies Headache, Denies Seizure Physical Exam-General Problems Physical Exam Vital Signs Vital Sign - Last 12Hours 04/01/16 17:45 Temp 101.0 Pulse 88 Resp 16 B/P 144/83 Pulse Ox 97 O2 Delivery Room Air Capillary Refill : Less Than 3 SecondsGreater Than 3 Seconds General Appearance: WD/WN moderate distress (secondary to pain) Eyes: Bilateral Eye EOMI, Bilateral Eye PERRL HEENT: pharynx normal scleral icterus (R) scleral icterus (L) Neck: full range of motion supple normal inspection Respiratory: chest non-tender lungs clear normal breath sounds no accessory muscle use Cardiovascular: normal peripheral pulses regular rate, rhythm Gastrointestinal: normal bowel sounds non tender soft no organomegaly no pulsatile mass Rectal: deferred Back: no CVA tenderness no vertebral tenderness Extremities: inflammation swelling other (right lower extremity has eschar and necrotic tissue postero-medially, cover area about 25cm by 8-10 cm. Erythema around entire calf area just below knee to just above ankle) Neurologic/Psychiatric: data entry representative II-XII nml as tested no motor/sensory deficits alert normal mood/affect oriented x 3 Lymphatic: no adenopathy (neck, axilla or groin) Data Review Labs Laboratory Tests 04/06/16 16:47: Glucometer 101 04/07/16 06:08: Alanine Aminotransferase (ALT/SGPT) 16, Albumin 2.9L, Alkaline Phosphatase 80, Anion Gap 9, Aspartate Amino Transf (AST/SGOT) 15, BUN/Creatinine Ratio 20, Band Neutrophils 4, Basophils # (Auto) 0.0, Basophils % (Manual) 1, Basophils (% ) (Auto) 0, Blood Morphology Comment NORMAL, Blood Urea Nitrogen 14, Calcium Level 8.6, Carbon Dioxide Level 23, Chloride Level 101, Creatinine 0.69, Eosinophils # (Auto) 0.2, Eosinophils % (Manual) 1, Eosinophils (%) (Auto) 2, Estimat Glomerular Filtration Rate > 60, Glucose Level 102, Hematocrit 35L, Hemoglobin 11.7L, Lymphocytes # (Auto) 1.8, Lymphocytes % (Manual) 13, Lymphocytes (%) (Auto) 16, Mean Corpuscular Hemoglobin 27, Mean Corpuscular Hemoglobin Concent 33, Mean Corpuscular Volume 82, Mean Platelet Volume 9.6, Monocytes # (Auto) 1.1H, Monocytes % (Manual) 7, Monocytes (%) (Auto) 10, Neutrophils # (Auto) 8.0H, Neutrophils % (Manual) 74, Neutrophils (%) (Auto) 72 , Platelet Count 310, Potassium Level 4.3, Red Blood Count 4.32L, Red Cell Distribution Width 13.7, Sodium Level 133L, Total Bilirubin 0.3, Total Protein 7.1, White Blood Count 11.0 Microbiology 04/01/16 Blood Culture - Preliminary, Resulted No growth Assessment/Plan Assessment/Plan Assessment/Plan Cellulitis with Necrotic skin - Right lower leg US just done shows no abscess, CT showed general inflammation. Pt was made NPO, held Lovenox Plan is to OR for I&D, probable debridement and possible wound VAC placement. Dr. Murillo will be doing the surgery. All questions answered to pt's satisfaction. DM - max medical management Clinical Quality Measures DVT/VTE Risk/Contraindication: Risk Factor Score Per Nursin RFS Level Per Nursing on Admit: 3=High Contraindications-Mechi: Other *list below* Other: active edema and cellulitis MANDO LANDIS DO Apr 07, 2016 11:25
--- NOTE | 2016-04-07 11:44 | Progress Note-Hospitalist ---
Progress Note HPI/CC on Admission this is a 45-year-old male who presents with a 2-3 day history of increased right leg pain swelling and erythema. He had had an injury by stepping on some glass about 2-3 days prior to the pain and swelling of his leg. He does not have a car and has to walk everywhere he goes. pain had finally gotten so bad that he was unable to ambulate. Venous Doppler was negative for DVT. This morning the leg is less erythematous is afebrile with a white count remains elevated at 17,000 Progress Notes/Assess & Plan Date Seen 04/07/16 Diagonsis/Assessment & Plan Dr. Lane assessed the patient and found him to need debridement and Dr. Lentz saw the patient this morning and general surgery Dr. Murillo who is on- call this week we will perform that today at 4 o'clock White count now normal at 11 Sugars are under control Antibiotics will be maintained BM+ No fever, vital signs stable, pleasant, oriented 3 Regular rate and rhythm, clear to auscultation bilaterally Right leg in dressing Assessment: Severe right leg cellulitis with abscess status post spontaneous rupture but now in need of debridement due to necrotic base New onset diabetes Plan: Continue IV antibiotics Wound care consult Monitor labs appreciate wound care consult and general surgery management KRISHAN BAR DO Apr 07, 2016 11:44
[2016-04-07] MEDS ORDERED: LACTATED RINGERS 1,000 ML IV ONE ×2 (12:08→16:13)
--- NOTE | 2016-04-07 12:45 | Diagnostic Imaging Report ---
INDICATION: Right calf pain. FINDINGS: Limited ultrasound of the right calf was performed. There is soft tissue edema in the subcutaneous fat of the calf with ill-defined interstitial fluid. No definite well-defined collection is seen. IMPRESSION: Soft tissue edema in the right calf with no discrete or well-defined collection. Dictated by: Dictated on workstation # [id number]
--- NOTE | 2016-04-07 15:36 | Wound Care Progress Note ---
Subjective Subjective Subjective/Events-last exam 45 year old male with necrotizing infection of R posterior calf. The patient has been seen by Dr. Murillo. Debridement is planned. Discussed rationale and possible need for HBOT with the patient. PMFSH: No interval change. Review of Systems Pulmonary: No Dyspnea Cardiovascular: No: Chest Pain Objective Exam Last Set of Vital Signs Vital Signs Date Time Temp Pulse Resp B/P Pulse Ox O2 Delivery O2 Flow Rate FiO2 04/07/16 08:00 98.4 81 24 106/76 95 Room Air Capillary Refill : Less Than 3 SecondsGreater Than 3 Seconds I&O Intake and Output 04/07/16 00:00 Intake Total 1812 ml Output Total 1750 ml Balance 62 ml Intake Oral 1662 ml IV Total 150 ml Output Urine Total 1750 ml # Bowel Movements 2 General: Alert, No Acute Distress Lungs: Normal Air Movement Skin: Other (necrotic skin R medial calf.) Results Lab Laboratory Tests 04/06/16 16:47: Glucometer 101 04/07/16 06:08: Alanine Aminotransferase (ALT/SGPT) 16, Albumin 2.9L, Alkaline Phosphatase 80, Anion Gap 9, Aspartate Amino Transf (AST/SGOT) 15, BUN/Creatinine Ratio 20, Band Neutrophils 4, Basophils # (Auto) 0.0, Basophils % (Manual) 1, Basophils (% ) (Auto) 0, Blood Morphology Comment NORMAL, Blood Urea Nitrogen 14, Calcium Level 8.6, Carbon Dioxide Level 23, Chloride Level 101, Creatinine 0.69, Eosinophils # (Auto) 0.2, Eosinophils % (Manual) 1, Eosinophils (%) (Auto) 2, Estimat Glomerular Filtration Rate > 60, Glucose Level 102, Hematocrit 35L, Hemoglobin 11.7L, Lymphocytes # (Auto) 1.8, Lymphocytes % (Manual) 13, Lymphocytes (%) (Auto) 16, Mean Corpuscular Hemoglobin 27, Mean Corpuscular Hemoglobin Concent 33, Mean Corpuscular Volume 82, Mean Platelet Volume 9.6, Monocytes # (Auto) 1.1H, Monocytes % (Manual) 7, Monocytes (%) (Auto) 10, Neutrophils # (Auto) 8.0H, Neutrophils % (Manual) 74, Neutrophils (%) (Auto) 72 , Platelet Count 310, Potassium Level 4.3, Red Blood Count 4.32L, Red Cell Distribution Width 13.7, Sodium Level 133L, Total Bilirubin 0.3, Total Protein 7.1, White Blood Count 11.0 Microbiology 04/01/16 Blood Culture - Preliminary, Resulted No growth Assessment/Plan Assessment/Plan Assessment/Plan 1. Streptococcal cellulitis of R calf, secondary to cut on foot one week ago. 2. Necrotizing infection of R medial calf. 3. Diabetes mellitus, poorly controlled. Plan: Surgical debridement of necrotizing infection. MAUREEN GARCIA MD Apr 07, 2016 15:36
[2016-04-07] MEDS ORDERED: LIDOCAINE PF 2% 10 ML (XYLOCAINE) AMP ONE (16:13)
[2016-04-07] MEDS ORDERED: SEVOFLURANE (ULTANE) 15 ML INHAL SOLN ONE ×2 (16:13→17:32)
[2016-04-07] MEDS ORDERED: MIDAZOLAM 2 MG/2 ML (VERSED) VIAL ONE (16:13)
[2016-04-07] MEDS ORDERED: DEXAMETHASONE PF 10 MG/ML (DECADRON) VIAL ONE (16:13)
[2016-04-07] MEDS ORDERED: ONDANSETRON 4 MG/2 ML (SDV) Z0FRAN ONE (16:13)
[2016-04-07] MEDS ORDERED: proPOfol 200 MG/20 ML (DIPRIVAN) VIAL IV ONE (16:13)
[2016-04-07] MEDS ORDERED: fentaNYL INJECTION 100 MCG/2 ML AMP ONE ×3 (16:13→16:53)
[2016-04-07] MEDS ORDERED: BUPIVACAINE 0.5% 30 ML (SENSORCAINE) VIAL ONE (16:18)
[2016-04-07] MEDS ORDERED: LIDOCAINE 1% INJ 20 ML (XYLOCAINE) VIAL ONE (16:18)
[2016-04-07] MEDS ORDERED: morphine INJ 10 MG/ML 1ML (SYR OR VIAL) ONE (16:42)
--- NOTE | 2016-04-07 17:30 | Progress Note-Post Operative ---
Post-Operative Progess Note Pre-Operative Diagnosis necrotic right lower extremity possible abscess Post-Operative Diagnosis necrotic right lower extremity skin and subcutaneous tissue Post-Op Procedure Note Date of Procedure: Apr 07, 2016 Name of Procedure: debridement right lower extremity skin and subcut tissue 15x5.5 cm and wound vac placement 15x5.5cm Procedure Note/Findings see note Anesthesia Type general Estimated blood loss (mL): min Specimen(s) collected culture GEOFFREY CURRY DO Apr 07, 2016 17:30
[2016-04-07] MEDS: morphine INJ 10 MG/ML 1ML (SYR OR VIAL) IV PRN ×2 (17:51→17:56)
[2016-04-07] MEDS ORDERED: fentaNYL INJECTION 100 MCG/2 ML AMP IV PRN (18:00)
[2016-04-07] MEDS ORDERED: ONDANSETRON 4 MG/2 ML (SDV) Z0FRAN IV ONE (18:00)
[2016-04-07] MEDS ORDERED: HYDROmorphone (DILAUDID) 2 MG/ML VIAL IV PRN (18:00)
[2016-04-07 18:56] VITALS: BP 133/85
[2016-04-07] MEDS: ACETAMINOPHEN 325 MG TABLET/CAPLET (TYLENOL) PO PRN (20:13)
[2016-04-07 22:01] VITALS: BP 133/85
[2016-04-07] MEDS: ONDANSETRON 4 MG/2 ML (SDV) Z0FRAN IVP PRN (23:57)
[2016-04-08] VITALS: BP 138/81
[2016-04-08] MEDS: HYDROcodone/APAP 5 MG/325 MG (LORTAB) TAB PO PRN ×3 (00:32→20:08)
[2016-04-08] MEDS: CATHETER FLUSH 10 ML SYR IV SCH ×3 (05:38→20:48)
[2016-04-08] MEDS: ceFAZolin INJECTION 1,000 MG in NORMAL SALINE (BAXTER MINI) 50 ML IV SCH ×3 (05:38→20:48)
[2016-04-08] MEDS: KCL 20 MEQ TAB (K-DUR) PO SCH (06:09)
[2016-04-08] MEDS: metFORMIN 500 MG (GLUCOPHAGE) TAB PO SCH ×2 (06:09→17:04)
[2016-04-08 08:00] VITALS: BP 130/53
[2016-04-08] MEDS: LACTOBACILLUS Acidoph/Bulgar (LACTINEX/FLORANEX) TAB PO SCH ×2 (08:16→20:48)
[2016-04-08] MEDS: IBUPROFEN 800 MG (MOTRIN) TAB PO PRN ×2 (08:16→17:04)
--- NOTE | 2016-04-08 10:11 | Progress Note (SOAP) ---
Subjective Subjective/Events-last exam This is a 45 year old male who was seen with Dr. Willingham. Patient reports today that he is doing much better. Reports only minimal pain in the right lower extremity. No N/V. Reports that he was having fevers/night sweats last night but reports that he took IBU and they broke. Tolerating diet. Voiding and BMs without difficulty. Review of Systems General: Night Sweats Gastrointestinal: No: Abdominal Pain, Constipation, Diarrhea, Nausea, Vomiting Objective Exam Vital Signs Date Time Temp Pulse Resp B/P Pulse Ox O2 Delivery O2 Flow Rate FiO2 04/08/16 08:00 96.8 86 18 130/53 96 Room Air 04/08/16 00:00 97.0 85 20 138/81 97 Room Air 04/07/16 22:01 96.4 82 20 133/85 93 Room Air 04/07/16 18:56 96.4 82 20 133/85 93 Room Air I & O 04/08/16 07:00 Intake Total 2484 ml Output Total 3675 ml Balance -1191 ml Capillary Refill : Less Than 3 SecondsGreater Than 3 Seconds General Appearance: No Apparent Distress WD/WN HEENT: PERRL/EOMI Neck: Supple Respiratory: No Accessory Muscle Use No Respiratory Distress Cardiovascular: Regular Rate, Rhythm No JVD Gastrointestinal: normal bowel sounds non tender soft Extremity: Normal Capillary Refill Normal Range of Motion Swelling (Right lower extremity approx 1+) Other (Wound vac in place and working. Patient denied pain with palpation of right lower extremity.) Neurologic/Psychiatric: Alert Oriented x3 Skin: Normal Color Warm/Dry Erythema (Right lower extremity. Appears to be improving from previous outline.) Results Lab Microbiology 04/01/16 Blood Culture - Final, Complete No growth Assessment/Plan Assessment/Plan Assess & Plan/Chief Complaint Right lower extremity necrosis, S/P debridement right lower extremity and wound vac placement. Continue medical management. Wound care/wound vac Pain, nausea, abx medications. Diet. Will continue to monitor. Diagnosis/Problems: Clinical Quality Measures DVT/VTE Risk/Contraindication: Risk Factor Score Per Nursin RFS Level Per Nursing on Admit: 3=High Contraindications-Mechi: Other *list below* Other: active edema and cellulitis JULIA WILLINGHAM APRN Apr 08, 2016 10:11 am
--- NOTE | 2016-04-08 10:25 | Progress Note-Hospitalist ---
Progress Note HPI/CC on Admission this is a 45-year-old male who presents with a 2-3 day history of increased right leg pain swelling and erythema. He had had an injury by stepping on some glass about 2-3 days prior to the pain and swelling of his leg. He does not have a car and has to walk everywhere he goes. pain had finally gotten so bad that he was unable to ambulate. Venous Doppler was negative for DVT. This morning the leg is less erythematous is afebrile with a white count remains elevated at 17,000 Progress Notes/Assess & Plan Date Seen 04/08/16 Diagonsis/Assessment & Plan s/p uncomplicated debridement per Dr Murillo yesterday Patient feels less pain in the leg when he is walking now The wound is draining well Pain is controlled No fever, vital signs stable, pleasant, oriented 3 Regular rate and rhythm, clear to auscultation bilaterally Right leg in dressing Laboratory Tests 04/08/16 10:35 Assessment: Severe right leg cellulitis with abscess status post spontaneous rupture s/p debridement due to necrotic base POD # 1 New onset diabetes Hyponatremia Leukocytosis Mild anemia of chronic illness Plan: Continue IV antibiotics Wound care consult Monitor labs appreciate wound care consult and general surgery management KRISHAN BAR DO Apr 08, 2016 10:25
[2016-04-08 10:44] LABS: BASOPHILS % (AUTO) 0 % (0-10); EOSINOPHILS % (AUTO) 0 % (0-10); LYMPHOCYTES # (AUTO) 1.5 X 10^3 (1.0-4.0); LYMPHOCYTES % (AUTO) 9 % (12-44); MEAN CORPUSCULAR HEMOGLOBIN 27 PG (25-34); MEAN CORPUSCULAR HGB CONC 34 G/DL (32-36); MEAN CORPUSCULAR VOLUME 81 FL (80-99); MEAN PLATELET VOLUME 9.5 FL (7.4-10.4); MONOCYTES # (AUTO) 1.2 X 10^3 (0.0-1.0); MONOCYTES % (AUTO) 7 % (0-12); NEUTROPHILS # (AUTO) 13.7 X 10^3 (1.8-7.8); NEUTROPHILS % (AUTO) 83 % (42-75); PLATELET COUNT 344 10^3/uL (130-400); RED BLOOD COUNT 4.24 10^6/uL (4.35-5.85); RED CELL DISTRIBUTION WIDTH 13.5 % (10.0-14.5); WHITE BLOOD COUNT 16.5 10^3/uL (4.3-11.0)
[2016-04-08 11:04] LABS: ALANINE AMINOTRANSFERASE 17 U/L (0-55); ANION GAP 8 MMOL/L (5-14); ASPARTATE AMINO TRANSFERASE 14 U/L (5-34); BILIRUBIN,TOTAL 0.3 MG/DL (0.1-1.0); BLOOD UREA NITROGEN 18 MG/DL (7-18); BUN/CREATININE RATIO 23; CALCIUM 8.7 MG/DL (8.5-10.1); CARBON DIOXIDE 24 MMOL/L (21-32); CHLORIDE 100 MMOL/L (98-107); CREATININE SERUM 0.77 MG/DL (0.60-1.30); GFR ESTIMATED > 60; GLUCOSE 163 MG/DL (70-105); POTASSIUM 4.3 MMOL/L (3.6-5.0); SODIUM 132 MMOL/L (135-145); TOTAL PROTEIN 7.1 G/DL (6.4-8.2)
--- NOTE | 2016-04-08 13:05 | Anesthesia-General Post-Op ---
General Patient Condition Mental Status/LOC: Same as Preop Cardiovascular: Satisfactory Nausea/Vomiting: Absent Respiratory: Satisfactory Pain: Controlled Complications: Absent Post Op Complications Complications None Follow Up Care/Instructions Patient Instructions None needed. Anesthesia/Patient Condition Patient Condition Patient is doing well, no complaints, stable vital signs, no apparent adverse anesthesia problems. No complications reported per nursing. ERICH GUILLORY CRNA Apr 08, 2016 13:05
[2016-04-08 16:13] VITALS: BP 138/86
[2016-04-09] VITALS: BP 133/76
[2016-04-09] MEDS: HYDROcodone/APAP 5 MG/325 MG (LORTAB) TAB PO PRN ×3 (04:39→21:53)
[2016-04-09] MEDS: ceFAZolin INJECTION 1,000 MG in NORMAL SALINE (BAXTER MINI) 50 ML IV SCH (06:05)
[2016-04-09] MEDS: CATHETER FLUSH 10 ML SYR IV SCH ×3 (06:06→21:58)
[2016-04-09] MEDS: metFORMIN 500 MG (GLUCOPHAGE) TAB PO SCH ×2 (06:06→16:11)
[2016-04-09] MEDS: KCL 20 MEQ TAB (K-DUR) PO SCH (06:06)
[2016-04-09] MEDS: LACTOBACILLUS Acidoph/Bulgar (LACTINEX/FLORANEX) TAB PO SCH ×2 (07:45→21:19)
[2016-04-09 08:14] VITALS: BP 138/84
[2016-04-09] MEDS: IBUPROFEN 800 MG (MOTRIN) TAB PO PRN (08:42)
--- NOTE | 2016-04-09 09:21 | Progress Note (SOAP) ---
Subjective Subjective/Events-last exam Patient seen with Dr. Willingham. Patient reports that he is doing fine. He reports that his right lower extremity is throbbing but reports that he was just on it to go to the bathroom. No N/V. He reports sweats last night. tolerating diet. Review of Systems General: Night Sweats Gastrointestinal: No: Abdominal Pain, Nausea, Vomiting Objective Exam Vital Signs Date Time Temp Pulse Resp B/P Pulse Ox O2 Delivery O2 Flow Rate FiO2 04/09/16 08:14 97.1 84 22 138/84 96 Room Air 04/09/16 00:00 97.7 78 20 133/76 96 Room Air 04/08/16 16:13 96.4 78 16 138/86 96 Room Air I & O 04/09/16 07:00 Intake Total 1460 ml Output Total 1500 ml Balance -40 ml Capillary Refill : Less Than 3 SecondsGreater Than 3 Seconds General Appearance: No Apparent Distress WD/WN HEENT: PERRL/EOMI Neck: Supple Respiratory: No Accessory Muscle Use No Respiratory Distress Cardiovascular: Regular Rate, Rhythm No Edema Gastrointestinal: normal bowel sounds non tender soft Extremity: Normal Capillary Refill Normal Range of Motion Swelling (Right lower extremity approx 1+ but improving.) Other (Wound vac in place and working. ) Neurologic/Psychiatric: Alert Oriented x3 Skin: Normal Color Warm/Dry Erythema (Right lower extremity but still appears to be improving.) Results Lab Laboratory Tests 04/08/16 10:35: Alanine Aminotransferase (ALT/SGPT) 17, Albumin 3.0L, Alkaline Phosphatase 111, Anion Gap 8, Aspartate Amino Transf (AST/SGOT) 14, BUN/Creatinine Ratio 23, Basophils # (Auto) 0.0, Basophils (%) (Auto) 0, Blood Urea Nitrogen 18, Calcium Level 8.7, Carbon Dioxide Level 24, Chloride Level 100, Creatinine 0.77, Eosinophils # (Auto) 0.0, Eosinophils (%) (Auto) 0, Estimat Glomerular Filtration Rate > 60, Glucose Level 163H, Hematocrit 34L, Hemoglobin 11.5L, Lymphocytes # (Auto) 1.5, Lymphocytes (%) (Auto) 9L, Mean Corpuscular Hemoglobin 27, Mean Corpuscular Hemoglobin Concent 34, Mean Corpuscular Volume 81, Mean Platelet Volume 9.5, Monocytes # (Auto) 1.2H, Monocytes (%) (Auto) 7, Neutrophils # (Auto) 13.7H, Neutrophils (%) (Auto) 83H, Platelet Count 344, Potassium Level 4.3, Red Blood Count 4.24L, Red Cell Distribution Width 13.5, Sodium Level 132L, Total Bilirubin 0.3, Total Protein 7.1, White Blood Count 16.5H Microbiology 04/01/16 Blood Culture - Final, Complete No growth 04/07/16 MRSA Screen - Final, Complete MRSA not isolated 04/07/16 Gram Stain - Final, Resulted 04/07/16 Anaerobic Culture, Resulted Pending 04/07/16 Surgical Culture - Preliminary, Resulted No growth Assessment/Plan Assessment/Plan Assess & Plan/Chief Complaint Right lower extremity necrosis, S/P debridement right lower extremity and wound vac placement. VSS, WBC up to 16.5 yesterday from 11.0, most likely reactive from surgery. Continue medical management. Wound care/wound vac Pain, nausea, abx medications. will switch to zosyn. Diet. CBC and CMP today. Will continue to monitor. Diagnosis/Problems: Clinical Quality Measures DVT/VTE Risk/Contraindication: Risk Factor Score Per Nursin RFS Level Per Nursing on Admit: 3=High Contraindications-Mechi: Other *list below* Other: active edema and cellulitis JULIA WILLINGHAM APRN Apr 09, 2016 9:21 am
[2016-04-09 10:05] LABS: BASOPHILS % (AUTO) 0 % (0-10); EOSINOPHILS # (AUTO) 0.2 10^3/uL (0.0-0.3); EOSINOPHILS % (AUTO) 2 % (0-10); LYMPHOCYTES # (AUTO) 2.8 X 10^3 (1.0-4.0); LYMPHOCYTES % (AUTO) 28 % (12-44); MEAN CORPUSCULAR HEMOGLOBIN 27 PG (25-34); MEAN CORPUSCULAR HGB CONC 33 G/DL (32-36); MEAN CORPUSCULAR VOLUME 83 FL (80-99); MEAN PLATELET VOLUME 9.7 FL (7.4-10.4); MONOCYTES # (AUTO) 1.1 X 10^3 (0.0-1.0); MONOCYTES % (AUTO) 11 % (0-12); NEUTROPHILS # (AUTO) 6.1 X 10^3 (1.8-7.8); NEUTROPHILS % (AUTO) 59 % (42-75); PLATELET COUNT 289 10^3/uL (130-400); RED BLOOD COUNT 4.24 10^6/uL (4.35-5.85); RED CELL DISTRIBUTION WIDTH 13.9 % (10.0-14.5); WHITE BLOOD COUNT 10.2 10^3/uL (4.3-11.0)
[2016-04-09] MEDS ORDERED: PIPERACILLIN SODIUM/TAZOBACTAM 4.5 GM in NS (BAXTER MINI) 100 ML IV NR (10:15)
[2016-04-09 10:27] LABS: ALANINE AMINOTRANSFERASE 13 U/L (0-55); ALBUMIN 2.9 G/DL (3.2-4.5); ANION GAP 9 MMOL/L (5-14); ASPARTATE AMINO TRANSFERASE 10 U/L (5-34); BILIRUBIN,TOTAL 0.3 MG/DL (0.1-1.0); BLOOD UREA NITROGEN 20 MG/DL (7-18); BUN/CREATININE RATIO 27; CALCIUM 8.3 MG/DL (8.5-10.1); CARBON DIOXIDE 24 MMOL/L (21-32); CHLORIDE 103 MMOL/L (98-107); CREATININE SERUM 0.74 MG/DL (0.60-1.30); GFR ESTIMATED > 60; GLUCOSE 113 MG/DL (70-105); POTASSIUM 3.8 MMOL/L (3.6-5.0); SODIUM 136 MMOL/L (135-145); TOTAL PROTEIN 6.6 G/DL (6.4-8.2)
--- NOTE | 2016-04-09 10:57 | Progress Note-Hospitalist ---
Progress Note HPI/CC on Admission this is a 45-year-old male who presents with a 2-3 day history of increased right leg pain swelling and erythema. He had had an injury by stepping on some glass about 2-3 days prior to the pain and swelling of his leg. He does not have a car and has to walk everywhere he goes. pain had finally gotten so bad that he was unable to ambulate. Venous Doppler was negative for DVT. This morning the leg is less erythematous is afebrile with a white count remains elevated at 17,000 Progress Notes/Assess & Plan Date Seen 04/09/16 Diagonsis/Assessment & Plan s/p uncomplicated debridement per Dr Murillo Sunday and I appreciate Dr Willingham evaluation and management and changing to Zosyn Patient feels less pain in the leg when he is walking now The wound is draining well and wound vac in place Pain is controlled No fever, vital signs stable, pleasant, oriented 3 Regular rate and rhythm, clear to auscultation bilaterally Right leg in dressing Laboratory Tests 04/09/16 09:58 Assessment: Severe right leg cellulitis with abscess status post spontaneous rupture s/p debridement due to necrotic base POD # 2 New onset diabetes Hyponatremia resolved Leukocytosis resolved Mild anemia of chronic illness stable Plan: Continue change of IV antibiotics to Zosyn and DC Ancef Wound care consult Monitor labs Appreciate wound care consult and general surgery management Wound vac social welfare research worker consultation KRISHAN BAR DO Apr 09, 2016 10:57
--- NOTE | 2016-04-09 13:56 | OPERATIVE REPORT ---
PROCEDURE PHYSICIAN: GEOFFREY CURRY DATE OF PROCEDURE: 04/07/2016 PREOPERATIVE DIAGNOSIS: Necrotic skin, possible abscess right lower extremity. POSTOPERATIVE DIAGNOSIS: Necrotic skin and subcutaneous tissue, right lower extremity. PROCEDURE: Debridement right lower of skin tissue and subcutaneous tissue 15 x 5 1/2 cm and application of wound VAC 15 x 5 1/2 cm. SURGEON: Lidia. ANESTHESIA: General. ESTIMATED BLOOD LOSS: Minimal. COMPLICATIONS: None. INDICATIONS: The patient is 45-year-old male with right lower extremity cellulitis and necrotic skin posterior and medial aspect of the calf. He was explained risk and benefits of the procedure and wished to proceed with the procedure. Consent was signed on the chart. PROCEDURE: The patient was taken to the operating suite. He was prepped and draped in sterile fashion. A surgical pause was performed. 15 blade scalpel and cautery was used to dissect down through the necrotic skin which was then grasped with an Allis clamp. There was a lot of friable necrotic sloughing skin that was black and through this entire area. The majority of this was 100% through the skin and there is some held in the subcutaneous tissue as well. Cautery was used to remove the necrotic skin and subcutaneous tissue down to healthy bleeding viable tissue. Cautery used to achieve hemostasis. Once hemostasis was achieved a power oracle soa developer was used to irrigate the entirety of the wound with copious amounts of irrigation. Once this was performed, a wound VAC black foam was then cut to size and applied in the usual fashion and the wound VAC was placed about 125 mmHg continuous after the area was washed and dried. The patient tolerated the procedure well without any complications taken to recovery room in stable condition. Job ID: [id number] Dictated Date: 04/08/2016 15:52:05 Office Rep Date: 04/09/2016 13:47:18 / rangel BROWN
[2016-04-09 16:00] VITALS: BP_SYST 130; BP_SYST 158; BP_DIAS 67; BP_DIAS 76
[2016-04-09] MEDS: PIPERACILLIN SODIUM/TAZOBACTAM 4.5 GM in NORMAL SALINE (BAXTER MINI) 100 ML IV SCH (16:11)
[2016-04-10 00:05] VITALS: BP 119/71
[2016-04-10] MEDS: PIPERACILLIN SODIUM/TAZOBACTAM 4.5 GM in NORMAL SALINE (BAXTER MINI) 100 ML IV SCH ×3 (00:10→16:13)
[2016-04-10] MEDS: IBUPROFEN 800 MG (MOTRIN) TAB PO PRN ×2 (00:46→16:13)
[2016-04-10] MEDS: CATHETER FLUSH 10 ML SYR IV SCH ×3 (04:04→20:06)
[2016-04-10] MEDS: HYDROcodone/APAP 5 MG/325 MG (LORTAB) TAB PO PRN ×2 (04:04→11:00)
[2016-04-10 05:37] LABS: BASOPHILS % (AUTO) 0 % (0-10); EOSINOPHILS # (AUTO) 0.2 10^3/uL (0.0-0.3); EOSINOPHILS % (AUTO) 2 % (0-10); LYMPHOCYTES # (AUTO) 2.7 X 10^3 (1.0-4.0); LYMPHOCYTES % (AUTO) 27 % (12-44); MEAN CORPUSCULAR HEMOGLOBIN 27 PG (25-34); MEAN CORPUSCULAR HGB CONC 33 G/DL (32-36); MEAN CORPUSCULAR VOLUME 83 FL (80-99); MEAN PLATELET VOLUME 9.8 FL (7.4-10.4); MONOCYTES # (AUTO) 1.1 X 10^3 (0.0-1.0); MONOCYTES % (AUTO) 11 % (0-12); NEUTROPHILS # (AUTO) 5.9 X 10^3 (1.8-7.8); NEUTROPHILS % (AUTO) 60 % (42-75); PLATELET COUNT 296 10^3/uL (130-400); RED BLOOD COUNT 4.24 10^6/uL (4.35-5.85); RED CELL DISTRIBUTION WIDTH 14.1 % (10.0-14.5); WHITE BLOOD COUNT 9.8 10^3/uL (4.3-11.0)
[2016-04-10 06:04] LABS: ALANINE AMINOTRANSFERASE 16 U/L (0-55); ANION GAP 9 MMOL/L (5-14); ASPARTATE AMINO TRANSFERASE 12 U/L (5-34); BILIRUBIN,TOTAL 0.3 MG/DL (0.1-1.0); BLOOD UREA NITROGEN 16 MG/DL (7-18); BUN/CREATININE RATIO 21; CALCIUM 9.2 MG/DL (8.5-10.1); CARBON DIOXIDE 26 MMOL/L (21-32); CHLORIDE 101 MMOL/L (98-107); CREATININE SERUM 0.75 MG/DL (0.60-1.30); GFR ESTIMATED > 60; GLUCOSE 91 MG/DL (70-105); POTASSIUM 4.1 MMOL/L (3.6-5.0); SODIUM 136 MMOL/L (135-145); TOTAL PROTEIN 6.7 G/DL (6.4-8.2)
[2016-04-10] MEDS: KCL 20 MEQ TAB (K-DUR) PO SCH (06:28)
[2016-04-10] MEDS: metFORMIN 500 MG (GLUCOPHAGE) TAB PO SCH ×2 (08:18→17:23)
[2016-04-10] MEDS: LACTOBACILLUS Acidoph/Bulgar (LACTINEX/FLORANEX) TAB PO SCH ×2 (08:18→20:06)
[2016-04-10 08:39] VITALS: BP 151/91
--- NOTE | 2016-04-10 10:06 | Progress Note ---
Subjective Subjective/Events-last exam Patient is easily aroused. He is alert and oriented 3.. No signs of distress or discomfort is noted. Abdomen is soft palpation. Patient denies any bowel palpation over the abdomen. Patient reports pain only when he stands to use the bathroom. He describes pain as throbbing. Able to palpate pedal pulses of the right lower extremity. Wound VAC operating properly. Objective Exam Vital Signs Date Time Temp Pulse Resp B/P Pulse Ox O2 Delivery O2 Flow Rate FiO2 04/10/16 08:39 97.7 79 22 151/91 98 Room Air 04/10/16 00:05 98.6 79 18 119/71 97 Room Air 04/09/16 20:15 Room Air 04/09/16 16:00 96.5 87 20 130/76 97 Room Air I & O 04/10/16 06:59 Intake Total 1760 ml Output Total 2450 ml Balance -690 ml Capillary Refill : Less Than 3 SecondsGreater Than 3 Seconds General Appearance: No Apparent Distress WD/WN HEENT: PERRL/EOMI Neck: Full Range of Motion Supple Respiratory: No Accessory Muscle Use No Respiratory Distress Cardiovascular: Regular Rate, Rhythm Gastrointestinal: non tender soft Extremity: Normal Capillary Refill Normal Range of Motion Other (Wound vac in place and working.) Neurologic/Psychiatric: Alert Oriented x3 Skin: Normal Color Warm/Dry Erythema (Right lower extremity but still appears to be improving.) Results Lab Laboratory Tests Test 04/08/16 10:35 04/09/16 09:58 04/10/16 04:50 Range/Units Alanine Aminotransferase (ALT/SGPT) 17 13 16 0-55 U/L Albumin 3.0 L 2.9 L 3.0 L 3.2-4.5 G/DL Alkaline Phosphatase 111 87 89 40-136 U/L Anion Gap 8 9 9 5-14 MMOL/L Aspartate Amino Transf (AST/SGOT) 14 10 12 5-34 U/L BUN/Creatinine Ratio 23 27 21 Basophils # (Auto) 0.0 0.0 0.0 0.0-0.1 10^3/uL Basophils (%) (Auto) 0 0 0 0-10 % Blood Urea Nitrogen 18 20 H 16 7-18 MG/DL Calcium Level 8.7 8.3 L 9.2 8.5-10.1 MG/DL Carbon Dioxide Level 24 24 26 21-32 MMOL/L Chloride Level 100 103 101 98-107 MMOL/L Creatinine 0.77 0.74 0.75 0.60-1.30 MG/DL Eosinophils # (Auto) 0.0 0.2 0.2 0.0-0.3 10^3/uL Eosinophils (%) (Auto) 0 2 2 0-10 % Estimat Glomerular Filtration Rate > 60 > 60 > 60 Glucose Level 163 H 113 H 91 70-105 MG/DL Hematocrit 34 L 35 L 35 L 40-54 % Hemoglobin 11.5 L 11.6 L 11.4 L 13.3-17.7 G/DL Lymphocytes # (Auto) 1.5 2.8 2.7 1.0-4.0 X 10^3 Lymphocytes (%) (Auto) 9 L 28 27 12-44 % Mean Corpuscular Hemoglobin 27 27 27 25-34 PG Mean Corpuscular Hemoglobin Concent 34 33 33 32-36 G/DL Mean Corpuscular Volume 81 83 83 80-99 FL Mean Platelet Volume 9.5 9.7 9.8 7.4-10.4 FL Monocytes # (Auto) 1.2 H 1.1 H 1.1 H 0.0-1.0 X 10^3 Monocytes (%) (Auto) 7 11 11 0-12 % Neutrophils # (Auto) 13.7 H 6.1 5.9 1.8-7.8 X 10^3 Neutrophils (%) (Auto) 83 H 59 60 42-75 % Platelet Count 344 289 296 130-400 10^3/uL Potassium Level 4.3 3.8 4.1 3.6-5.0 MMOL/L Red Blood Count 4.24 L 4.24 L 4.24 L 4.35-5.85 10^6/uL Red Cell Distribution Width 13.5 13.9 14.1 10.0-14.5 % Sodium Level 132 L 136 136 135-145 MMOL/L Total Bilirubin 0.3 0.3 0.3 0.1-1.0 MG/DL Total Protein 7.1 6.6 6.7 6.4-8.2 G/DL White Blood Count 16.5 H 10.2 9.8 4.3-11.0 10^3/uL Laboratory Tests 04/10/16 04:50: Alanine Aminotransferase (ALT/SGPT) 16, Albumin 3.0L, Alkaline Phosphatase 89, Anion Gap 9, Aspartate Amino Transf (AST/SGOT) 12, BUN/Creatinine Ratio 21, Basophils # (Auto) 0.0, Basophils (%) (Auto) 0, Blood Urea Nitrogen 16, Calcium Level 9.2, Carbon Dioxide Level 26, Chloride Level 101, Creatinine 0.75, Eosinophils # (Auto) 0.2, Eosinophils (%) (Auto) 2, Estimat Glomerular Filtration Rate > 60, Glucose Level 91, Hematocrit 35L, Hemoglobin 11.4L, Lymphocytes # (Auto) 2.7, Lymphocytes (%) (Auto) 27, Mean Corpuscular Hemoglobin 27, Mean Corpuscular Hemoglobin Concent 33, Mean Corpuscular Volume 83, Mean Platelet Volume 9.8, Monocytes # (Auto) 1.1H, Monocytes (%) (Auto) 11, Neutrophils # (Auto) 5.9, Neutrophils (%) (Auto) 60, Platelet Count 296, Potassium Level 4.1, Red Blood Count 4.24L, Red Cell Distribution Width 14.1, Sodium Level 136, Total Bilirubin 0.3, Total Protein 6.7, White Blood Count 9.8 Microbiology 04/01/16 Blood Culture - Final, Complete No growth 04/07/16 MRSA Screen - Final, Complete MRSA not isolated 04/07/16 Gram Stain - Final, Resulted 04/07/16 Anaerobic Culture - Preliminary, Resulted No growth 04/07/16 Surgical Culture - Preliminary, Resulted No growth Assessment/Plan Assessment/Plan Assessment/Plan Right lower extremity necrosis, S/P debridement right lower extremity and wound vac placement. WBC trending down to 9.8. Continue with medical management. Wound care/wound vac-redressing today/ abx medications was switched to zosyn. Will continue to monitor. Murillo- Patient states leg has continue to feel better. Still with pain when ambulating on it some. Wound vac in place. overall erythema and swelling improving wound vac changed and demonstrating healthy viable appearing subcutaneous tissue s/p debridement necrosis skin and subcutaneous tissues right lower extremity wound vac changed today continue wound care medical management Clinical Quality Measures DVT/VTE Risk/Contraindication: Risk Factor Score Per Nursin RFS Level Per Nursing on Admit: 3=High Contraindications-Mechi: Other *list below* Other: active edema and cellulitis ALYSHA SIMS AIR POLLUTION ENGINEER Apr 10, 2016 10:05 GEOFFREY MURILLO DO Apr 10, 2016 13:22
--- NOTE | 2016-04-10 11:27 | Progress Note-Hospitalist ---
Standard Progress Note Progress Notes/Assess & Plan Date Seen 04/10/16 Diagnosis 1. cellulitis most consistent with strep organism-on Ancef day number 2 with improvement 2. 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 Poor social situation-social work consult in the morning 4. mild hyperglycemia we'll check a hemoglobin A1c Assess & Plan/Chief Complaint The patient had his posterior calf open up since I last saw him Sunday of last week. He subsequently had debrided monitor. The calf looks much better relative to cover and the wound from debrided monitor is clearly clean and viable. The calf itself is still a good deal larger than the left calf but the red color is much improved. He really has no other complaints but a craving for ice cream. Physical exam: Lungs are clear to auscultation. Wound care is in the room and the right calf is really available for evaluation. The discoloration is now more of a bronzy pink in color. There is a large elliptical open wound on the posterior calf which goes nearly from the popliteal space to the proximal heel cord. The fatty tissue is clean and viable. Impression: Aggressive strep cellulitis requiring ultimate debridement. Continued evidence of improvement. Diabetes mellitus type II on oral medications new Plan: Continue IV antibiotics and wound care Labs Laboratory Tests 04/09/16 09:58 04/10/16 04:50 WILLIAM KISER MD Apr 10, 2016 11:27
[2016-04-10 15:30] VITALS: BP 131/87
[2016-04-11] VITALS: BP 142/88
[2016-04-11] MEDS: PIPERACILLIN SODIUM/TAZOBACTAM 4.5 GM in NORMAL SALINE (BAXTER MINI) 100 ML IV SCH ×2 (00:15→09:19)
[2016-04-11] MEDS: IBUPROFEN 800 MG (MOTRIN) TAB PO PRN (00:17)
[2016-04-11] MEDS: CATHETER FLUSH 10 ML SYR IV SCH (04:15)
[2016-04-11 08:00] VITALS: BP 156/92
[2016-04-11] MEDS: metFORMIN 500 MG (GLUCOPHAGE) TAB PO SCH (09:18)
[2016-04-11] MEDS: LACTOBACILLUS Acidoph/Bulgar (LACTINEX/FLORANEX) TAB PO SCH (09:18)
[2016-04-11] MEDS: KCL 20 MEQ TAB (K-DUR) PO SCH (09:18)
[2016-04-11] MEDS: HYDROcodone/APAP 5 MG/325 MG (LORTAB) TAB PO PRN ×2 (09:19→15:59)
--- NOTE | 2016-04-11 11:54 | Progress Note-Hospitalist ---
Standard Progress Note Progress Notes/Assess & Plan Date Seen 04/11/16 Diagnosis 1. cellulitis most consistent with strep organism-on Ancef day number 2 with improvement 2. 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 Poor social situation-social work consult in the morning 4. mild hyperglycemia we'll check a hemoglobin A1c Assess & Plan/Chief Complaint The patient has received authorization for his wound VAC. To this point he states that he has only been up to the bathroom which is about 15 feet. He also apparently sat in a chair for a period of time. He appears to need more prodding and accordingly physical therapy has been consulted. Physical exam: He is alert and oriented. Lungs are clear to auscultation. CV is regular. The right calf is fully dressed and not open today. Impression: Strep cellulitis right lower extremity improving. 2. Poor ambulation at this point. 3.diabetes well-controlled on oral meds. Plan: Placement of wound VAC. 2.PT to ambulate 3.imminent discharged to home with outpatient services. Labs Laboratory Tests 04/10/16 04:50 WILLIAM KISER MD Apr 11, 2016 11:53
--- NOTE | 2016-04-11 14:41 | Physical Therapy Evaluation ---
PT Evaluation-General Medical Diagnosis Admission Date Apr 01, 2016 at 18:11 Medical Diagnosis: cellulitis right LE Onset Date: Apr 01, 2016 Therapy Diagnosis Therapy Diagnosis: debility Height/Weight Height (Feet): 5 Height (Inches): 5.00 Weight (Pounds): 176 Weight (Ounces): 5.0 Precautions Precautions/Isolations: Standard Precautions Weight Bear Status Weight Bearing Restriction: Weight Bearing/Tolerated Location Restriction: R LE Referral Physician: Danie Reason for Referral: Evaluation/Treatment Medical History Additional Medical History stepped on glass several weeks prior Current History ER with right LE swelling x 4 days Reviewed History: Yes Social History Home: Apartment Current Living Status: Other Family Entry Into Home: Level Entry Prior/Core FIM Prior Level of Function Functional [place] Measure 0=Not Assessed/NA 4=Minimal Assistance 1=Total Assistance 5=Supervision or Setup 2=Maximal Assistance 6=Modified [place] 3=Moderate Assistance 7=Complete [place] Bed Mobility: 7 Transfers (B,C,W/C) (FIM): 7 Gait: 7 PT Evaluation-Current Subjective Patient is up in room with FWW. Pain Numeric Pain Scale: 5-Moderate Pain Location: Right Location Body Site: Calf Pain Description: Throbbing, Tightness Objective Patient Orientation: Normal For Age Problem Solving: Good wound vac ROM/Strength ROM Lower Extremities bilateral LE WFL Strenght Lower Extremities left LE WFL; right LE NT Integumentary/Posture Integumentary refer to nursing notes Bowel Incontinence: No Bladder Incontinence: No Posture WNL Neuromuscular (Tone, Coordination, Reflexes) grossly intact Sensory Vision: Wears Glasses Hearing: Functional Sensation Right Lower Extremit: Intact Sensation Left Lower Extremity: Intact Transfers Functional [place] Measure 0=Not Assessed/NA 4=Minimal Assistance 1=Total Assistance 5=Supervision or Setup 2=Maximal Assistance 6=Modified [place] 3=Moderate Assistance 7=Complete [place] Transfers (B, C, W/C) (FIM): 6 Scootin Rollin Supine to/from Sit: 6 Sit to/from Stand: 6 Gait Mode of Locomotion: Walk Anticipated Mode of Locomotion: Walk Gait (FIM): 6 Distance (FIM): 3=150 ft Distance: 500' Gait Level of Assist: 6 Gait Assistive Device: FWW Comments/Gait Description functional/antalgic; patient will require a FWW upon dismissal from hospital Balance Sitting Static: Normal Sitting Dynamic: Normal Standing Static: Normal Standing Dynamic: Normal Assessment/Needs 45 y.o. male, is currently at maximum LOF with all gross motor skills and does not require skilled PT intervention at this time. Patient will require a FWW upon dismissal. SW notified Rehab Potential: Good PT Plan Treatment/Plan Treatment Plan: Discontinue PT Discharge Recommendations Equpiment Recommendations-D/C: Front Wheeled Walker Time/GCodes Time In: 1400 Time Out: 1415 Total Billed Treatment Time: 15 Total Billed Treatment 1 visit EVLow 15 min G Codes Necessary: ARCHIE Santamaria PT Apr 11, 2016 14:41
[2016-04-11] MEDS ORDERED: CEFD300C3 PO (14:56)
[2016-04-11] MEDS ORDERED: HYDR-3812 PO (14:56)
[2016-04-11] MEDS ORDERED: METF500T4 PO (14:56)
[2016-04-11] MEDS ORDERED: WALK1EAC23 MC (15:05)
--- NOTE | 2016-04-11 15:08 | Discharge Inst-Home Health ---
Discharge Inst-to Home Health Patient Instructions Patient Instructions/FollowUp: Continue antibiotic orally for the next week. Pain medicines as needed Up with walker at home Daily medications as on the med list Patient Problems: Strep cellulitis right calf with necrosis and subsequent debridement New DX diabetes type II oral agents Goal: Healing of calf VIA [place] DISCHARGE ORDERS Allergies: Coded Allergies: No Known Drug Allergies (Unverified , 07/23/13) Height (Feet): 5 Height (Inches): 5.00 Weight (Pounds): 176 Weight (Ounces): 5.0 Home Health Need/Face to Face Reason Pt Homebound Open wound with wound VAC right calf Date of Face to Face: Apr 11, 2016 Discharged To: Home Diagnosis/Conditions HH Order: Strep cellulitis right calf with subsequent necrosis y Consult/Follow Up/New Order *I certify that based on my findings, the following services are medically necessary Home Health Services: Services: Nursing Services, Wound Care-Eval/Treat My clinical findings support the need for the above services; see Diagnosis. y [facility] Orders Reinforcement of medication administration Wound care Clinical Findings Description as above Other Equipment Needed: Wound VAC Wheeled walker Dicharge Diet: ADA Diet Daily Activity as Tolerated: Yes Discharge Medications: New, Converted, or Re-newed RX: RX on Chart I certify that this patient is under my care and that I, a nurse practitioner or a physician; a anesthesiologist assistant working with me, had a face to face encounter that - meets the physician face to face encounter requirements with this patient as dated. WILLIAM Mansfield MD Apr 11, 2016 15:02
[2016-04-11 16:04] VITALS: BP 142/88
[2016-04-11 16:18] VITALS: BP 142/88
--- NOTE | 2016-04-29 07:49 | Discharge Summary-Hospitalist ---
Diagnosis/Chief Complaint Date of Admission Apr 01, 2016 at 18:11 Date of Discharge Apr 11, 2016 at 16:15 Discharge Date: Apr 11, 2016 Admission Diagnosis 1. cellulitis most consistent with strep organism-on Ancef day number 2 with improvement 2. 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 Poor social situation-social work consult in the morning 4. mild hyperglycemia we'll check a hemoglobin A1c Discharge Diagnosis 1.lower extremity cellulitis likely Streptococcus. 2.ASHD with previous open heart surgery. 3.type II diabetes newly diagnosed Reason Hospital Visit/Course this is a 45-year-old male who presents with a 2-3 day history of increased right leg pain swelling and erythema. He had had an injury by stepping on some glass about 2-3 days prior to the pain and swelling of his leg. He does not have a car and has to walk everywhere he goes. pain had finally gotten so bad that he was unable to ambulate. Venous Doppler was negative for DVT. This morning the leg is less erythematous is afebrile with a white count remains elevated at 17,000 Hospital course: The patient showed early improvement in the erythema and swelling. He then became relatively in a plateau state. A large vertically oriented vesicle on the posterior calf then opened up and required surgical debridement. Wound care was enlisted as well. He was hard to encourage to ambulate as he complained of pain. This ultimately reached the point of stability and he was discharged to follow-up in the wound care clinic. The patient Had a poor social situation relative to no car or transportation. He well need community support. These details and his home medications are as chronicled in the discharge sequence. Discharge Summary Discharge Physical Examination Allergies: Coded Allergies: No Known Drug Allergies (Unverified , 07/23/13) Hospital Course Labs (last 24 hrs) Microbiology 04/01/16 Blood Culture - Final, Complete No growth 04/07/16 MRSA Screen - Final, Complete MRSA not isolated 04/07/16 Gram Stain - Final, Complete 04/07/16 Anaerobic Culture - Final, Complete No growth 04/07/16 Surgical Culture - Final, Complete No growth Discharge Home Medications: Active Scripts Active Ultra-Light Rollator (Walker) 1 Each Each 1 Each MC Cefdinir 300 Mg Capsule 300 Mg PO BID Metformin HCl 500 Mg Tablet 500 Mg PO BID@ Hydrocodon -Acetaminophen 5-325 (Hydrocodone/Acetaminophen) 1 Each Tablet 1 Tab PO Q4H PRN Reported Advil (Ibuprofen) 200 Mg Tablet 400-800 Mg PO Q8H PRN TAKES 2-4 (200MG) TABLETS Instructions to patient/family Please see electonic discharge instructions given to patient. Clinical Quality Measures DVT/VTE Risk/Contraindication: Risk Factor Score Per Nursin RFS Level Per Nursing on Admit: 3=High Contraindications-Mechi: Other *list below* Other: active edema and cellulitis WILLIAM KISER MD Apr 29, 2016 07:49
== END 2016-04-11 16:15 | disposition home health service (06) | DRG 571 ==
LOC: EDUNIT# 17:09 → ER 17:11 → 4TH 18:11
PROVIDERS: ADMIT Internal Medicine; ATTEND Internal Medicine
PROC: 0JBN0ZZ Excision of Right Lower Leg Subcutaneous Tissue and Fascia, Open Approach (ICD-10-PCS; principal; 2016-04-07 16:30)
DX: L03.115 Cellulitis of right lower limb (principal); I96 Gangrene, not elsewhere classified; E87.1 Hypo-osmolality and hyponatremia; Z95.2 Presence of prosthetic heart valve; E11.65 Type 2 diabetes mellitus with hyperglycemia; D72.819 Decreased white blood cell count, unspecified; D63.8 Anemia in other chronic diseases classified elsewhere; B95.5 Unspecified streptococcus as the cause of diseases classified elsewhere
CPT/HCPCS: 36415; 73700; 76881; 80048; 80053; 82962; 83036; 83605; 85007; 85025; 85027; 87040; 87070; 87075; 87081; 87205; 96365; 96375

== ENCOUNTER 2016-06-07 08:28 | Outpatient (RCR) | payer OTHER ==
[~2016-06-07 08:28] MED LIST changes: +ACET-2267 PO; +CEFD300C3 PO; +HYDR-3812 PO; +IBUP-30 PO; +METF500T4 PO; +WALK1EAC23 MC
== END 2016-06-07 16:00 | disposition home or self-care (01) ==
LOC: WOUNDCARE 08:28
PROVIDERS: ATTEND Surgery
DX: E11.622 Type 2 diabetes mellitus with other skin ulcer (principal); L97.212 Non-pressure chronic ulcer of right calf with fat layer exposed; L03.115 Cellulitis of right lower limb
CPT/HCPCS: 11042; 11045; 87070; 87075; 87186; 87205

== ENCOUNTER 2016-07-19 08:35 | Outpatient (RCR) | payer SELFPAY | END 2016-07-19 16:00 | disposition home or self-care (01) | LOC: WOUNDCARE 08:35 | PROVIDERS: ATTEND Surgery | DX: E11.622 Type 2 diabetes mellitus with other skin ulcer (principal); L97.212 Non-pressure chronic ulcer of right calf with fat layer exposed | CPT/HCPCS: 11042; 99212 ==

== ENCOUNTER 2017-02-21 14:42 | Emergency (ER) | payer SELFPAY ==
[~2017-02-21] VITALS: Ht 165.1 cm; Wt 81.6 kg
--- OUTSIDE RECORDS SUMMARY | 2017-02-21 14:51 | XMS REPORT ---
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 Active 14970853 Problem Other chronic pain G89.29 Active 64993370 Problem Essential hypertension I10 Active 30343086 Problem Lumbago with sciatica, right side M54.41 Active 686577061 ALLERGIES Unknown Allergies SOCIAL HISTORY No smoking Hx information available PLAN OF CARE VITAL SIGNS Height 64 in 2016-02-29 Weight 183 lbs 2016-02-29 Heart Rate 60 bpm 2016-02-29 Respiratory Rate 16 2016-02-29 BMI 31.41 kg/m2 2016-02-29 Blood pressure systolic 120 mmHg 2016-02-29 Blood pressure diastolic 80 mmHg 2016-02-29 MEDICATIONS Medication Instructions Dosage Frequency Start Date End Date Duration Status Naproxen 500 MG Orally every 12 hrs 1 tablet as needed 12h Feb, Active PredniSONE 20 mg Orally Once a day 2 tablets 24h Feb, Feb, 10 days Active RESULTS No Results PROCEDURES Procedure Date Ordered Related Diagnosis Body Site Office Visit, New Pt., Level 2 Feb 29, 2016 IMMUNIZATIONS No Known Immunizations
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
[2017-02-21 14:59] VITALS: BP 150/69
== END 2017-02-21 16:05 | disposition left against medical advice (07) ==
LOC: EDUNIT# 14:42 → ER 14:47
DX: M25.562 Pain in left knee (principal); R06.02 Shortness of breath
CPT/HCPCS: 99281

== ENCOUNTER 2017-08-30 14:25 | Emergency (ER) | payer SELFPAY ==
[~2017-08-30] VITALS: Ht 165.1 cm; Wt 81.8 kg
[~2017-08-30 14:25] MED LIST changes: -HYDR-3812 PO; -METF500T4 PO; +METF500T5 PO
[2017-08-30] MEDS ORDERED: LIDOCAINE 2% 20 ML (XYLOCAINE) VIAL INJ ONE (14:30)
--- NOTE | 2017-08-30 14:36 | ED Lower Extremity ---
General Stated Complaint: LEFT LEG LAC Source: patient Exam Limitations: no limitations History of Present Illness Date Seen by Provider: Aug 30, 2017 Time Seen by Provider: 14:31 Initial Comments to ER with a left leg laceration. He was working on the garden with a shovel when he struck it withstruck a weed with a shovel and hit a piece of glass that he didn't see. This caused the glass to fly up and lacerate the anterior aspect of the mas. Tetanus is up-to-date within last 5 years. Onset: just prior to arrival Severity: mild Pain/Injury Location: left leg Allergies and Home Medications Allergies Coded Allergies: No Known Drug Allergies (Unverified , 07/23/13) Home Medications No Active Prescriptions or Reported Meds Patient Home Medication List Home Medication List Reviewed: Yes Constitutional: see HPI EENTM: see HPI Respiratory: no symptoms reported Cardiovascular: no symptoms reported Genitourinary: no symptoms reported Musculoskeletal: see HPI Skin: see HPI Psychiatric/Neurological: No Symptoms Reported Past Mclrftf-Kljauh-Elnlwx Hx Patient Social History Alcohol Beverage of Choice: Beer Recent Foreign Travel: No Contact w/Someone Who Travel: No Recent Hopitalizations: No Immunizations Up To Date Tetanus Booster (TDap): Less than 5yrs PED Vaccines UTD: No Seasonal Allergies Seasonal Allergies: No Past Medical History Surgeries: Yes (HEART SURG AT ) Orthopedic, Valve Replacement Respiratory: No Cardiac: Yes Valvular Heart Disease Neurological: No Reproductive Disorders: No Genitourinary: No Gastrointestinal: No Musculoskeletal: No Endocrine: Yes Diabetes, Non-Insulin dep HEENT: No Cancer: No Psychosocial: No Integumentary: No Blood Disorders: No Adverse Reaction/Blood Tranf: No Family Medical History Diabetes mellitus 19 MOTHER Hypertension 19 FATHER 19 MOTHER Diabetes Physical Exam Vital Signs Vital Signs - First Documented 08/30/17 14:33 Temp 97.8 Pulse 91 Resp 18 B/P (MAP) 144/102 (116) Pulse Ox 97 O2 Delivery Room Air Capillary Refill : General Appearance: WD/WN, no apparent distress HEENT: PERRL/EOMI, normal ENT inspection Neck: non-tender, full range of motion Respiratory: no respiratory distress, no accessory muscle use Hips: bilateral hip non-tender, bilateral hip normal inspection, bilateral hip normal range of motion Legs: left leg non-tender, left leg normal inspection, left leg other ( there is a 1-1.5 cm laceration to the anterior aspect of the mid left tibia) Knees: bilateral knee non-tender, bilateral knee normal inspection, bilateral knee normal range of motion Ankles: bilateral ankle non-tender, bilateral ankle normal inspection, bilateral ankle normal range of motion Feet: bilateral foot non-tender, bilateral foot normal inspection, bilateral foot normal range of motion Neurologic/Psychiatric: alert, normal mood/affect, oriented x 3 Skin: normal color, warm/dry Procedures/Interventions Wound Location: Lower Extremities Wound Length (cm): 1.5 Wound's Depth, Shape: linear Wound Explored: clean Irrigated w/ Saline (ccs): 40 Anesthesia: 1% Lidocaine Volume Anesthetic (ccs): 2 Suture: Prolene Suture Size: 4-0 Number of Sutures: 2 Layer Closure?: 1 Number Deep Layer Sutures: 0 Progress/Results/Core Measures Results/Orders My Orders Orders - MARJ BARDALES APRN Lidocaine 2% Injection 20 Ml (Xylocaine (08/30/17 14:30) Dipht,Pertuss(Acell),Tet Adult (Boostrix (08/30/17 15:00) Vaccine Administration Single (08/30/17 ) Vital Signs/I&O 08/30/17 08/30/17 08/30/17 08/30/17 14:33 15:01 15:03 15:04 Temp 97.8 97.8 97.8 97.8 Pulse 91 89 Resp 18 18 B/P (MAP) 144/102 (116) 144/98 (116) Pulse Ox 97 97 O2 Delivery Room Air Room Air Departure Impression Primary Impression: Leg laceration Disposition: 01 HOME, SELF-CARE Condition: Stable Departure-Patient Inst. Decision time for Depature: 14:35 Referrals: NO,LOCAL PHYSICIAN (PCP/Family) Primary Care Physician Patient Instructions: Laceration Repair With Stitches (DC) Add. Discharge Instructions: 1. Return to ER to have the stitches removed in 10 days. Return to ER before then for any sign of infection such as redness or swellingor puslike drainage. You may shower starting tomorrow allowing water run over this but do not soak this in water such as a hot tub, bath tub or swimming pool until the stitches are removed.. Scripts No Active Prescriptions or Reported Meds MARJ BARDALES APRN Aug 30, 2017 14:36
[2017-08-30] MEDS ORDERED: TETANUS,DIPTH,PERTUSS P/F (BOOSTRIX) 0.5 ML VIAL IM ONE (15:00)
[2017-08-30 15:04] VITALS: BP 144/98
== END 2017-08-30 15:04 | disposition left against medical advice (07) ==
LOC: EDUNIT# 14:25 → ER 14:27
DX: S81.812A Laceration without foreign body, left lower leg, initial encounter (principal); E11.9 Type 2 diabetes mellitus without complications; Z95.2 Presence of prosthetic heart valve; W25.XXXA Contact with sharp glass, initial encounter
CPT/HCPCS: 12001; 90471; 90715

== ENCOUNTER 2017-09-06 11:13 | Emergency (ER) | payer SELFPAY ==
[~2017-09-06] VITALS: Ht 165.1 cm; Wt 81.8 kg
--- NOTE | 2017-09-06 12:52 | ED Lower Extremity ---
General Chief Complaint: Laceration Stated Complaint: SUTURE REMOVAL LEFT LEG SWELLING Nursing Triage Note: PT HAD 2 SUTURES PUT IN HERE LAST WEEK IN LT LOWER LEG, SWOLLEN AT LAC AND ANKLE IS SWOLLEN, PT DENIES TWISTING ANKLE AND STATES THE SWELLING IN ANKLE IS FROM THE LAC. Nursing Sepsis Screen: No Definite Risk Source: patient Exam Limitations: no limitations History of Present Illness Date Seen by Provider: Sep 06, 2017 Time Seen by Provider: 12:51 Initial Comments Patient is a 46-year-old male who presents to the emergency room for suture removal. His sutures are intact but there is redness and significant swelling around the sutures on the left anterior aspect of the mas. He denies fevers, reports pain in the area. Onset: last week Pain/Injury Location: left leg Method of Injury: incised Modifying Factors: Improves With Movement Allergies and Home Medications Allergies Coded Allergies: No Known Drug Allergies (Unverified , 07/23/13) Home Medications No Active Prescriptions or Reported Meds Patient Home Medication List Home Medication List Reviewed: Yes Constitutional: see HPI; No chills, No fever, No malaise, No weakness EENTM: no symptoms reported Respiratory: see HPI; No cough, No dyspnea on exertion Cardiovascular: see HPI; No chest pain, No edema Gastrointestinal: see HPI; No abdominal pain, No constipation Genitourinary: see HPI; No decreased output, No discharge Musculoskeletal: see HPI; No back pain, No gout Skin: see HPI, other (swelling and pain to his left mas area) Psychiatric/Neurological: See HPI; Denies Anxiety, Denies Depressed All Other Systems Reviewed Negative Unless Noted: Yes Past Deqvjdu-Awojlm-Deenwd Hx Past Med/Social Hx: Reviewed Nursing Past Med/Soc Hx Patient Social History Alcohol Use: Rarely Uses Number of Drinks Today: AA Alcohol Beverage of Choice: Beer Recreational Drug Use: No Smoking Status: Never a Smoker Recent Foreign Travel: No Contact w/Someone Who Travel: No Recent Infectious Disease Expo: No Recent Hopitalizations: No Immunizations Up To Date Tetanus Booster (TDap): Less than 5yrs PED Vaccines UTD: No Seasonal Allergies Seasonal Allergies: No Past Medical History Surgeries: Yes (HEART SURG AT ) Orthopedic, Valve Replacement Respiratory: No Cardiac: Yes Valvular Heart Disease Neurological: No Reproductive Disorders: No Genitourinary: No Gastrointestinal: No Musculoskeletal: No Endocrine: Yes Diabetes, Non-Insulin dep HEENT: No Cancer: No Psychosocial: No Integumentary: No Blood Disorders: No Adverse Reaction/Blood Tranf: No Family Medical History Reviewed Nursing Family Hx Diabetes mellitus 19 MOTHER Hypertension 19 FATHER 19 MOTHER Diabetes Physical Exam Vital Signs Vital Signs - First Documented 09/06/17 09/06/17 12:41 12:47 Temp 97.9 Pulse 89 Resp 20 B/P (MAP) 129/82 Pulse Ox 96 O2 Delivery Room Air Capillary Refill : Less Than 3 Seconds General Appearance: WD/WN, no apparent distress HEENT: normal ENT inspection, TMs normal, pharynx normal Neck: non-tender, full range of motion, supple, normal inspection Cardiovascular: normal peripheral pulses, regular rate, rhythm, no edema, no gallop, no JVD, no murmur Respiratory: chest non-tender, lungs clear, normal breath sounds, no respiratory distress, no accessory muscle use Gastrointestinal: non tender, soft, no organomegaly, no pulsatile mass Back: normal inspection, no CVA tenderness Legs: left leg pain, left leg soft tissue tenderness, left leg swelling (left anterior aspect of the mas) Feet: left foot ecchymosis (there is ecchymosis to the left ankle, it appears to be from the laceration proximal to this.) Neurologic/Tendon: normal sensation, normal motor functions, normal tendon functions, responds to pain Neurologic/Psychiatric: alert, normal mood/affect, oriented x 3 Skin: normal color, warm/dry, other (area around the laceration is erythematous. ) Procedures/Interventions Suture Size: 4-0 Progress/Results/Core Measures Results/Orders My Orders Orders - GABRIELA LONDONO Ceftriaxone Injection (Rocephin Injectio (09/06/17 13:00) Lidocaine 1% Inj 20 Ml (Xylocaine 1% Inj (09/06/17 13:00) Wound Culture (09/06/17 12:48) Let Solution (Let Solution) (09/06/17 13:00) Medications Given in ED Current Medications Medications Dose Ordered Sig/Nelson Route Start Time Stop Time Status Last Admin Dose Admin Ceftriaxone Sodium 1,000 mg ONCE ONCE IM 09/06/17 13:00 09/06/17 13:01 DC 09/06/17 12:59 1,000 MG Lidocaine HCl 2.1 ml ONCE ONCE INJ 09/06/17 13:00 09/06/17 13:01 DC 09/06/17 12:59 2.1 ML Tetracaine/ Epinephrine/ Lidocaine 1 ea ONCE ONCE TOP 09/06/17 13:00 09/06/17 13:01 DC 09/06/17 12:58 1 EA Vital Signs/I&O 09/06/17 09/06/17 09/06/17 09/06/17 12:41 12:47 12:59 12:59 Temp 97.9 97.9 97.9 Pulse 89 89 Resp 20 20 B/P (MAP) 129/82 129/82 (98) Pulse Ox 96 96 O2 Delivery Room Air 09/06/17 13:24 Temp 97.9 Pulse 89 Resp 20 B/P (MAP) 129/82 (98) Pulse Ox 96 O2 Delivery Room Air Blood Pressure Mean: 98 Progress Progress Note : Time: 13:15 Progress Note The sutures were removed and drainage was expressed and cultured. The patient was given a gram of Rocephin IM in the emergency room today and a prescription for Bactrim DS twice a day for 7 days with sent with the patient to be filled. Departure Impression Primary Impression: Cellulitis of right lower extremity Disposition: HOME, SELF-CARE Condition: Stable/Unchanged Departure-Patient Inst. Decision time for Depature: 13:10 Referrals: NO,LOCAL PHYSICIAN (PCP) Primary Care Physician Patient Instructions: Cellulitis (Skin Infection), Adult (DC) Add. Discharge Instructions: Take medications as directed. Be sure to take the entire course of antibiotics. Follow up with your doctor within 1 week for recheck. Watch for increasing signs of infection such as redness, swelling, increased pain. Return back to the emergency room for any concerns as needed. All discharge instructions reviewed with patient and/or family. Voiced understanding. Scripts No Active Prescriptions or Reported Meds GABRIELA LONDONO Sep 06, 2017 12:52
[2017-09-06] MEDS ORDERED: cefTRIAXone 1 GM (ROCEPHIN) VIAL IM ONE (13:00)
[2017-09-06] MEDS ORDERED: LIDOCAINE 1% INJ 20 ML 20 ML VIAL INJ ONE (13:00)
[2017-09-06] MEDS ORDERED: L.E.T. SYRINGE 5 ML TOP ONE (13:00)
[2017-09-06 13:24] VITALS: BP 129/82
== END 2017-09-06 13:24 | disposition home or self-care (01) ==
LOC: EDUNIT# 11:13 → ER 11:16
DX: S81.812D Laceration without foreign body, left lower leg, subsequent encounter (principal); L03.115 Cellulitis of right lower limb; E11.9 Type 2 diabetes mellitus without complications; Z95.0 Presence of cardiac pacemaker; X58.XXXD Exposure to other specified factors, subsequent encounter
CPT/HCPCS: 87070; 87205; 96372

== ENCOUNTER 2018-04-15 12:06 | Emergency (ER) | payer SELFPAY ==
[~2018-04-15] VITALS: Ht 165.1 cm; Wt 81.6 kg
[~2018-04-15 12:06] MED LIST changes: +METF-397 PO; -METF500T5 PO
--- OUTSIDE RECORDS SUMMARY | 2018-04-15 12:11 | XMS REPORT | Continuity of Care Document ---
Author Author [facility] Organization [facility] Address Unknown Phone Unavailable Care Team Providers Care Inspector Receiving Name Role Phone NO, LOCAL PHYSICIAN PP Unavailable Insurance Providers Payer Name Policy Number Subscriber Name Relationship Self Pay Oswaldo Coronado Jr 01 Self / Same As Patient Advance Directives Directive Response Recorded Date Advance Directives N 12/02/12 3:30pm Health Care Power of News Clipping Cutter N 12/02/12 3:30pm Organ Donor N 12/02/12 3:30pm Problems No Known Problems or Medical conditions. Social History History Response Recorded Date/Time Alcohol Use Occasionally Uses 12/02/12 3: 30pm Recreational Drug Use N 12/02/12 3:30pm Allergies, Adverse Reactions, Alerts Allergen Type Severity Reaction Last Updated NKDA Allergy Mild 12/13/08 Medications Medication Dose Units Route Sig Qty Days Hydrocodone Bit/Acetaminophen (Hydrocodon-Acetaminophen 5-325) 1 - 2 Each PO Q6H PRN 14 Trimethoprim/Sulfamethoxazole (Bactrim Ds) 1 Ea PO BID 10 Nystatin (Nystatin Cream 15 Gm) 0 TP QID 15 Trimethoprim/Sulfamethoxazole (Bactrim Ds) 1 Ea PO BID 10 Azithromycin (Zithromax Tab) 0 PO Z-MARC 6 [...] 2008 12:01pm NONE /HPF - Urine Specific [place] December 03, 2008 12:01pm 1.015 L - [...] March 02, 2010 3:56pm Referred Lab Report [id number] - Estimat Glomerular Filtration Rate May 06, [...] Antigen (LAURA) 03/02 Encounters Encounter Location Date/Time Departed Emergency Room [facility] 2:34pm Registered Emergency Room [facility] 12/03/08 10:57am
--- OUTSIDE RECORDS SUMMARY | 2018-04-15 12:12 | XMS REPORT | Continuity of Care Document ---
Author Author [facility] Organization [facility] Address Unknown Phone Unavailable Care Team Providers Care Brick Paver Name Role Phone NO, LOCAL PHYSICIAN PP Unavailable Insurance Providers Payer Name Policy Number Subscriber Name Relationship Self Pay Oswaldo Coronado Jr 01 Self / Same As Patient Advance Directives Directive Response Recorded Date Advance Directives N 12/04/12 10:10am Health Care Power of Black Studies Professor N 12/02/12 3:30pm Organ Donor N 12/02/12 3:30pm Problems No Known Problems or Medical conditions. Social History History Response Recorded Date/Time Alcohol Use Occasionally Uses 12/04/12 10 :10am Recreational Drug Use N 12/04/12 10:10am Allergies, Adverse Reactions, Alerts Allergen Type Severity Reaction Last Updated NKDA Allergy Mild 12/13/08 Medications Medication Dose Units Route Sig Qty Days Hydrocodone Bit/Acetaminophen (Hydrocodon-Acetaminophen 5-325) 1 - 2 Each PO Q 4 HOURS PRN PAIN 14 Hydrocodone Bit/Acetaminophen (Hydrocodon-Acetaminophen 5-325) 1 - 2 [...] Recorded Date/Time Status not known Unknown Results No Known Relevant Diagnostic Tests, Laboratory Data and/or Discharge Summary. Encounters Encounter Location Date/Time Departed Emergency Room [facility] 10:05am Registered Emergency Room [facility] 12/03/08 10:57am
--- OUTSIDE RECORDS SUMMARY | 2018-04-15 12:12 | XMS REPORT | Continuity of Care Document ---
Author Author [facility] [address] Organization [facility] [address] Address Unknown Phone Unavailable Allergies Active Description Code Type Severity Reaction Onset Reported/Identified Relationship to Patient Clinical Status Yes No Known Drug Allergies [id number] Drug Allergy Unknown N/A 07/23/2013 Medications There is no data. Problems Date Dx Coded Attending Type Code Diagnosis Diagnosed By 02/08/1599 MAUREEN GARCIA MD, Ot E11.622 TYPE 2 DIABETES MELLITUS WITH OTHER SKIN 02/08/1599 MAUREEN GARCIA MD, Ot L03.115 CELLULITIS OF RIGHT LOWER LIMB 02/08/1599 MAUREEN GARCIA MD, Ot L97.212 NON-PRESSURE CHRONIC ULCER OF RIGHT CALF 02/08/1599 MAUREEN GARCIA MD, Ot E11.622 TYPE 2 DIABETES MELLITUS WITH OTHER SKIN 02/08/1599 MAUREEN GARCIA MD, Ot L97.212 NON-PRESSURE CHRONIC ULCER OF RIGHT CALF 12/13/2008 Ot 462 ACUTE PHARYNGITIS 03/02/2010 Ot 465.9 ACUTE URI NOS 03/02/2010 Ot 786.05 SHORTNESS OF BREATH 05/27/2010 Ot 372.30 CONJUNCTIVITIS NOS 05/27/2010 Ot 379.93 REDNESS/ DISCHARGE OF EYE 03/31/2011 Ot 466.0 ACUTE BRONCHITIS 03/31/2011 Ot 786.2 COUGH 05/07/2011 Ot 305.00 ALCOHOL ABUSE-UNSPEC 05/07/2011 Ot 429.3 CARDIOMEGALY 05/07/2011 Ot 786.50 CHEST PAIN NOS 05/07/2011 Ot 786.52 PAINFUL RESPIRATION 10/07/2012 KATHE LATIF MD Ot 930.9 FOREIGN BDY EXT EYE NOS 10/07/2012 KATHE LATIF MD Ot E000.8 OTHER EXTERNAL CAUSE STATUS 10/07/2012 KATHE LATIF MD Ot E914 FB ENTERING EYE 11/01/2012 MIGUE DUPONT Ot 112.3 CUTANEOUS CANDIDIASIS 11/01/2012 MIGUE DUPONT Ot 682.9 CELLULITIS NOS 11/01/2012 MIGUE DUPONT Ot 782.1 NONSPECIF SKIN ERUPT NEC 12/02/2012 MIGUE DUPONT Ot 682.1 CELLULITIS OF NECK 12/02/2012 MIGUE DUPONT Ot 706.2 SEBACEOUS CYST 12/02/2012 MIGUE DUPONT Ot 782.2 LOCAL SUPRFICIAL SWELLNG 12/04/2012 GEORGE DO GAVIN Radha Ot 682.2 CELLULITIS OF TRUNK 02/20/2013 WILLIAM KISER MD Ot 891.0 OPEN WND KNEE/LEG/ANKLE 02/20/2013 WILLIAM KISER MD Ot E000.8 OTHER EXTERNAL CAUSE STATUS 02/20/2013 WILLIAM KISER MD Ot E849.0 ACCIDENT IN HOME 02/20/2013 WILLIAM KISER MD Ot E920.8 ACC-CUTTING INSTRUM NEC 07/23/2013 STEWART REBOLLAR DO Ot 682.5 CELLULITIS OF BUTTOCK 07/23/2013 STEWART REBOLLAR DO Ot 722.10 LUMBAR DISC DISPLACEMENT 07/23/2013 STEWART REBOLLAR DO Ot 724.2 LUMBAGO 07/23/2013 STEWART REBOLLAR DO Ot 729.5 PAIN IN LIMB 07/23/2013 STEWART REBOLLAR DO Ot 782.0 SKIN SENSATION DISTURB 04/04/2016 ANDRIY BALL MD Ot L03.115 CELLULITIS OF RIGHT LOWER LIMB 04/04/2016 ANDRIY BALL MD Ot Z95.2 PRESENCE OF PROSTHETIC HEART VALVE 04/05/2016 ANDRIY BALL MD Ot L03.115 CELLULITIS OF RIGHT LOWER LIMB 04/05/2016 ANDRIY BALL MD Ot Z95.2 PRESENCE OF PROSTHETIC HEART VALVE 04/06/2016 ANDRIY BALL MD Ot L03.115 CELLULITIS OF RIGHT LOWER LIMB 04/06/2016 ANDRIY BALL MD Ot Z95.2 PRESENCE OF PROSTHETIC HEART VALVE 04/07/2016 ANDRIY BALL MD Ot L03.115 CELLULITIS OF RIGHT LOWER LIMB 04/07/2016 ANDRIY BALL MD Ot Z95.2 PRESENCE OF PROSTHETIC HEART VALVE 04/07/2016 ANDRIY BALL MD Ot L03.115 CELLULITIS OF RIGHT LOWER LIMB 04/07/2016 ANDRIY BALL MD Ot Z95.2 PRESENCE OF PROSTHETIC HEART VALVE 04/07/2016 ANDRIY BALL MD Ot L03.115 CELLULITIS OF RIGHT LOWER LIMB 04/07/2016 ANDRIY BALL MD Ot Z95.2 PRESENCE OF PROSTHETIC HEART VALVE 04/11/2016 ANDRIY BALL MD Ot B95.5 UNSP STREPTOCOCCUS THE CAUSE OF DISEA 04/11/2016 ANDRIY BALL MD Ot D63.8 ANEMIA IN OTHER CHRONIC DISEASES CLASSIF 04/11/2016 ANDRIY BALL MD Ot D72.819 DECREASED WHITE BLOOD CELL COUNT, UNSPEC 04/11/2016 ANDRIY BALL MD Ot E11.65 TYPE 2 DIABETES MELLITUS WITH HYPERGLYCE 04/11/2016 ANDRIY BALL MD Ot E87.1 HYPO-OSMOLALITY AND HYPONATREMIA 04/11/2016 ANDRIY BALL MD Ot I96 GANGRENE, NOT ELSEWHERE CLASSIFIED 04/11/2016 ANDRIY BALL MD Ot L03.115 CELLULITIS OF RIGHT LOWER LIMB 04/11/2016 ANDRIY BALL MD Ot Z95.2 PRESENCE OF PROSTHETIC HEART VALVE 04/13/2016 Ot 305.00 ALCOHOL ABUSE-UNSPEC 04/13/2016 Ot 429.3 CARDIOMEGALY 04/13/2016 Ot 786.50 CHEST PAIN NOS 04/13/2016 Ot 786.52 PAINFUL RESPIRATION 05/10/2016 MAUREEN GARCIA MD Ot E11.622 TYPE 2 DIABETES MELLITUS WITH OTHER SKIN 05/10/2016 MAUREEN GARCIA MD Ot L03.115 CELLULITIS OF RIGHT LOWER LIMB 05/10/2016 MAUREEN GARCIA MD Ot L97.212 NON-PRESSURE CHRONIC ULCER OF RIGHT CALF 05/10/2016 MAUREEN GARCIA MD Ot E11.622 TYPE 2 DIABETES MELLITUS WITH OTHER SKIN 05/10/2016 MAUREEN GARCIA MD Ot L03.115 CELLULITIS OF RIGHT LOWER LIMB 05/10/2016 MAUREEN GARCIA MD Ot L97.212 NON-PRESSURE CHRONIC ULCER OF RIGHT CALF 05/16/2016 MAUREEN GARCIA MD Ot E11.622 TYPE 2 DIABETES MELLITUS WITH OTHER SKIN 05/16/2016 MAUREEN GARCIA MD Ot L03.115 CELLULITIS OF RIGHT LOWER LIMB 05/16/2016 MAUREEN GARCIA MD, Ot L97.212 NON-PRESSURE CHRONIC ULCER OF RIGHT CALF 05/16/2016 Ot 724.2 LUMBAGO 05/16/2016 Ot 788.41 URINARY FREQUENCY 05/16/2016 Ot 789.09 ABDOMINAL PAIN, OTHER SPECIFIED SITE 05/17/2016 Ot 372.30 CONJUNCTIVITIS NOS 05/17/2016 Ot 379.93 REDNESS/ DISCHARGE OF EYE 05/17/2016 MAUREEN GARCIA MD, Ot E11.622 TYPE 2 DIABETES MELLITUS WITH OTHER SKIN 05/17/2016 MAUREEN GARCIA MD, Ot L03.115 CELLULITIS OF RIGHT LOWER LIMB 05/17/2016 MAUREEN GARCIA MD, Ot L97.212 NON-PRESSURE CHRONIC ULCER OF RIGHT CALF 05/17/2016 MAUREEN GARCIA MD, Ot E11.622 TYPE 2 DIABETES MELLITUS WITH OTHER SKIN 05/17/2016 MAUREEN GARCIA MD Ot L03.115 CELLULITIS OF RIGHT LOWER LIMB 05/17/2016 MAUREEN GARCIA MD Ot L97.212 NON-PRESSURE CHRONIC ULCER OF RIGHT CALF 06/07/2016 MAUREEN GARCIA MD Ot E11.622 TYPE 2 DIABETES MELLITUS WITH OTHER SKIN 06/07/2016 MAUREEN GARCIA MD Ot L03.115 CELLULITIS OF RIGHT LOWER LIMB 06/07/2016 MAUREEN GARCIA MD Ot L97.212 NON-PRESSURE CHRONIC ULCER OF RIGHT CALF 06/26/2016 MAUREEN GARCIA MD Ot E11.622 TYPE 2 DIABETES MELLITUS WITH OTHER SKIN 06/26/2016 MAUREEN GARCIA MD Ot L97.212 NON-PRESSURE CHRONIC ULCER OF RIGHT CALF 06/27/2016 MAUREEN GARCIA MD Ot E11.622 TYPE 2 DIABETES MELLITUS WITH OTHER SKIN 06/27/2016 MAUREEN GARCIA MD Ot L97.212 NON-PRESSURE CHRONIC ULCER OF RIGHT CALF 06/27/2016 MAUREEN GARCIA MD Ot E11.622 TYPE 2 DIABETES MELLITUS WITH OTHER SKIN 06/27/2016 MAUREEN GARCIA MD Ot L97.212 NON-PRESSURE CHRONIC ULCER OF RIGHT CALF 07/19/2016 MAUREEN GARCIA MD Ot E11.622 TYPE 2 DIABETES MELLITUS WITH OTHER SKIN 07/19/2016 MAUREEN GARCIA MD Ot L97.212 NON-PRESSURE CHRONIC ULCER OF RIGHT CALF 02/21/2017 PAYAM COLEMAN, MIGUEL ANGEL Mckeon Ot M25.562 PAIN IN LEFT KNEE 02/21/2017 PAYAM COLEMAN, MIGUEL ANGEL Mckeon Ot R06.02 SHORTNESS OF BREATH 08/30/2017 MARJ BARDALES APRN Ot E11.9 TYPE 2 DIABETES MELLITUS WITHOUT COMPLIC 08/30/2017 MARJ BARDALES APRN Ot S81.812A LACERATION WITHOUT FOREIGN BODY, LEFT LO 08/30/2017 MARJ BARDALES APRN Ot W25.XXXA CONTACT WITH [place], INITIAL ENCOUN 08/30/2017 MARJ BARDALES APRN Ot Z95.2 PRESENCE OF PROSTHETIC HEART VALVE 09/03/2017 MARJ BARDALES APRN Ot E11.9 TYPE 2 DIABETES MELLITUS WITHOUT COMPLIC 09/03/2017 MARJ BARDALES APRN Ot S81.812A LACERATION WITHOUT FOREIGN BODY, LEFT LO 09/03/2017 MARJ BARDALES APRN Ot W25.XXXA CONTACT WITH [place], INITIAL ENCOUN 09/03/2017 MARJ BARDALES APRN Ot Z95.2 PRESENCE OF PROSTHETIC HEART VALVE 09/06/2017 GABRIELA LONDONO Ot E11.9 TYPE 2 DIABETES MELLITUS WITHOUT COMPLIC 09/06/2017 BERNGABRIELA NINO Ot L03.115 CELLULITIS OF RIGHT LOWER LIMB 09/06/2017 BERNGABRIELA NINO Ot S81.812D LACERATION WITHOUT FOREIGN BODY, LEFT LO 09/06/2017 BERNKITTY NINOIS Ot X58.XXXD EXPOSURE TO OTHER SPECIFIED FACTORS, SUB 09/06/2017 GABRIELA LNODONO Ot Z95.0 PRESENCE OF CARDIAC PACEMAKER 09/10/2017 GABRIELA LONDONO Ot E11.9 TYPE 2 DIABETES MELLITUS WITHOUT COMPLIC 09/10/2017 GABRIELA LONDONO Ot L03.115 CELLULITIS OF RIGHT LOWER LIMB 09/10/2017 BERNKITTY NINOIS Ot S81.812D LACERATION WITHOUT FOREIGN BODY, LEFT LO 09/10/2017 BERNKITTY NINOIS Ot X58.XXXD EXPOSURE TO OTHER SPECIFIED FACTORS, SUB 09/10/2017 BERNKITTY NINOIS Ot Z95.0 PRESENCE OF CARDIAC PACEMAKER Procedures Code Description Performed By Performed On [id number] EXCISION OF R LOW LEG SUBCU/FASCIA, OPEN 04/07/2016 Results Test Result Range Complete blood count (CBC) with automated white blood cell (WBC) differential - 04/01/16 17:35 Blood leukocytes automated count (number/volume) 18.0 10*3/uL 4.3-11.0 Blood erythrocytes automated count (number/volume) 4.83 10*6/uL 4.35-5.85 Venous blood hemoglobin measurement (mass/volume) 13.3 g/dL 13.3-17.7 Blood hematocrit (volume fraction) 39 % 40-54 Automated erythrocyte mean corpuscular volume 80 [foz_us] 80-99 Automated erythrocyte mean corpuscular hemoglobin (mass per erythrocyte) 28 pg 25-34 Automated erythrocyte mean corpuscular hemoglobin concentration measurement ( mass/volume) 35 g/dL 32-36 Automated erythrocyte distribution width ratio 14.0 % 10.0-14.5 Automated blood platelet count (count/volume) 230 10*3/uL 130-400 Automated blood platelet mean volume measurement 10.7 [foz_us] 7.4-10.4 Automated blood neutrophils/100 leukocytes 88 % 42-75 Automated blood lymphocytes/100 leukocytes 6 % 12-44 Blood monocytes/100 leukocytes 6 % 0-12 Automated blood eosinophils/100 leukocytes 0 % 0-10 Automated blood basophils/100 leukocytes 0 % 0-10 Blood neutrophils automated count (number/volume) 15.9 10*3 1.8-7.8 Blood lymphocytes automated count (number/volume) 1.1 10*3 1.0-4.0 Blood monocytes automated count (number/volume) 1.1 10*3 0.0-1.0 Automated eosinophil count 0.0 10*3/uL 0.0-0.3 Automated blood basophil count (count/volume) 0.0 10*3/uL 0.0-0.1 Whole blood basic metabolic panel - 04/01/16 17:35 Serum or plasma sodium measurement (moles/volume) 131 mmol/L 135-145 Serum or plasma potassium measurement (moles/volume) 3.7 mmol/L 3.6-5.0 Serum or plasma chloride measurement (moles/volume) 98 mmol/L 98-107 Carbon dioxide 22 mmol/L 21-32 Serum or plasma anion gap determination (moles/volume) 11 mmol/L 5-14 Serum or plasma urea nitrogen measurement (mass/volume) 21 mg/dL 7-18 Serum or plasma creatinine measurement (mass/volume) 1.05 mg/dL 0.60-1.30 Serum or plasma urea nitrogen/creatinine mass ratio 20 NRG Serum or plasma creatinine measurement with calculation of estimated glomerular filtration rate > NRG Serum or plasma glucose measurement (mass/volume) 131 mg/dL 70-105 Serum or plasma calcium measurement (mass/volume) 8.7 mg/dL 8.5-10.1 Blood manual differential performed detection - 04/01/16 17:35 Blood monocytes/100 leukocytes 5 % NRG Manual blood segmented neutrophils/100 leukocytes 80 % NRG Manual blood lymphocytes/100 leukocytes 9 % NRG Manual eosinophils/100 leukocytes in nose 6 % NRG Blood erythrocyte morphology finding identification NORMAL NRG Blood lactic acid measurement (moles/volume) - 04/01/16 17:45 Blood lactic acid measurement (moles/volume) 2.0 mmol/L 0.5-2.0 Bacterial blood culture - 04/01/16 17:45 Bacterial blood culture NG NRG Bacterial blood culture - 04/01/16 18:13 Bacterial blood culture NG NRG Complete blood count (CBC) with automated white blood cell (WBC) differential - 04/02/16 05:00 Blood leukocytes automated count (number/volume) 17.8 10*3/uL 4.3-11.0 Blood erythrocytes automated count (number/volume) 4.49 10*6/uL 4.35-5.85 Venous blood hemoglobin measurement (mass/volume) 12.3 g/dL 13.3-17.7 Blood hematocrit (volume fraction) 36 % 40-54 Automated erythrocyte mean corpuscular volume 80 [foz_us] 80-99 Automated erythrocyte mean corpuscular hemoglobin (mass per erythrocyte) 27 pg 25-34 Automated erythrocyte mean corpuscular hemoglobin concentration measurement ( mass/volume) 34 g/dL 32-36 Automated erythrocyte distribution width ratio 13.9 % 10.0-14.5 Automated blood platelet count (count/volume) 202 10*3/uL 130-400 Automated blood platelet mean volume measurement 10.5 [foz_us] 7.4-10.4 Automated blood neutrophils/100 leukocytes 87 % 42-75 Automated blood lymphocytes/100 leukocytes 6 % 12-44 Blood monocytes/100 leukocytes 7 % 0-12 Automated blood eosinophils/100 leukocytes 0 % 0-10 Automated blood basophils/100 leukocytes 0 % 0-10 Blood neutrophils automated count (number/volume) 15.4 10*3 1.8-7.8 Blood lymphocytes automated count (number/volume) 1.1 10*3 1.0-4.0 Blood monocytes automated count (number/volume) 1.2 10*3 0.0-1.0 Automated eosinophil count 0.1 10*3/uL 0.0-0.3 Automated blood basophil count (count/volume) 0.0 10*3/uL 0.0-0.1 Complete blood count (CBC) with automated white blood cell (WBC) differential - 04/03/16 04:47 Blood leukocytes automated count (number/volume) 14.3 10*3/uL 4.3-11.0 Blood erythrocytes automated count (number/volume) 4.46 10*6/uL 4.35-5.85 Venous blood hemoglobin measurement (mass/volume) 12.2 g/dL 13.3-17.7 Blood hematocrit (volume fraction) 36 % 40-54 Automated erythrocyte mean corpuscular volume 82 [foz_us] 80-99 Automated erythrocyte mean corpuscular hemoglobin (mass per erythrocyte) 27 pg 25-34 Automated erythrocyte mean corpuscular hemoglobin concentration measurement ( mass/volume) 34 g/dL 32-36 Automated erythrocyte distribution width ratio 14.2 % 10.0-14.5 Automated blood platelet count (count/volume) 237 10*3/uL 130-400 Automated blood platelet mean volume measurement 11.1 [foz_us] 7.4-10.4 Automated blood neutrophils/100 leukocytes 80 % 42-75 Automated blood lymphocytes/100 leukocytes 11 % 12-44 Blood monocytes/100 leukocytes 9 % 0-12 Automated blood eosinophils/100 leukocytes 1 % 0-10 Automated blood basophils/100 leukocytes 0 % 0-10 Blood neutrophils automated count (number/volume) 11.4 10*3 1.8-7.8 Blood lymphocytes automated count (number/volume) 1.5 10*3 1.0-4.0 Blood monocytes automated count (number/volume) 1.3 10*3 0.0-1.0 Automated eosinophil count 0.1 10*3/uL 0.0-0.3 Automated blood basophil count (count/volume) 0.0 10*3/uL 0.0-0.1 Whole blood basic metabolic panel - 04/03/16 04:47 Serum or plasma sodium measurement (moles/volume) 134 mmol/L 135-145 Serum or plasma potassium measurement (moles/volume) 3.1 mmol/L 3.6-5.0 Serum or plasma chloride measurement (moles/volume) 102 mmol/L 98-107 Carbon dioxide 25 mmol/L 21-32 Serum or plasma anion gap determination (moles/volume) 7 mmol/L 5-14 Serum or plasma urea nitrogen measurement (mass/volume) 10 mg/dL 7-18 Serum or plasma creatinine measurement (mass/volume) 0.76 mg/dL 0.60-1.30 Serum or plasma urea nitrogen/creatinine mass ratio 13 NRG Serum or plasma creatinine measurement with calculation of estimated glomerular filtration rate > NRG Serum or plasma glucose measurement (mass/volume) 115 mg/dL 70-105 Serum or plasma calcium measurement (mass/volume) 8.5 mg/dL 8.5-10.1 Hemoglobin A1c - 04/03/16 04:47 Hemoglobin A1c 7.8 % 4.5-6.2 Capillary blood glucose measurement by glucometer (mass/volume) - 04/04/16 05: 50 Capillary blood glucose measurement by glucometer (mass/volume) 89 mg/dL 70-110 Complete blood count (CBC) with automated white blood cell (WBC) differential - 04/05/16 10:25 Blood leukocytes automated count (number/volume) 16.2 10*3/uL 4.3-11.0 Blood erythrocytes automated count (number/volume) 4.73 10*6/uL 4.35-5.85 Venous blood hemoglobin measurement (mass/volume) 12.7 g/dL 13.3-17.7 Blood hematocrit (volume fraction) 39 % 40-54 Automated erythrocyte mean corpuscular volume 82 [foz_us] 80-99 Automated erythrocyte mean corpuscular hemoglobin (mass per erythrocyte) 27 pg 25-34 Automated erythrocyte mean corpuscular hemoglobin concentration measurement ( mass/volume) 33 g/dL 32-36 Automated erythrocyte distribution width ratio 14.2 % 10.0-14.5 Automated blood platelet count (count/volume) 363 10*3/uL 130-400 Automated blood platelet mean volume measurement 9.7 [foz_us] 7.4-10.4 Automated blood neutrophils/100 leukocytes 84 % 42-75 Automated blood lymphocytes/100 leukocytes 9 % 12-44 Blood monocytes/100 leukocytes 6 % 0-12 Automated blood eosinophils/100 leukocytes 1 % 0-10 Automated blood basophils/100 leukocytes 0 % 0-10 Blood neutrophils automated count (number/volume) 13.6 10*3 1.8-7.8 Blood lymphocytes automated count (number/volume) 1.5 10*3 1.0-4.0 Blood monocytes automated count (number/volume) 1.0 10*3 0.0-1.0 Automated eosinophil count 0.1 10*3/uL 0.0-0.3 Automated blood basophil count (count/volume) 0.0 10*3/uL 0.0-0.1 Comprehensive metabolic panel - 04/05/16 10:25 Serum or plasma sodium measurement (moles/volume) 136 mmol/L 135-145 Serum or plasma potassium measurement (moles/volume) 4.2 mmol/L 3.6-5.0 Serum or plasma chloride measurement (moles/volume) 102 mmol/L 98-107 Carbon dioxide 25 mmol/L 21-32 Serum or plasma anion gap determination (moles/volume) 9 mmol/L 5-14 Serum or plasma urea nitrogen measurement (mass/volume) 11 mg/dL 7-18 Serum or plasma creatinine measurement (mass/volume) 0.75 mg/dL 0.60-1.30 Serum or plasma urea nitrogen/creatinine mass ratio 15 NRG Serum or plasma creatinine measurement with calculation of estimated glomerular filtration rate > NRG Serum or plasma glucose measurement (mass/volume) 110 mg/dL 70-105 Serum or plasma calcium measurement (mass/volume) 8.9 mg/dL 8.5-10.1 Serum or plasma total bilirubin measurement (mass/volume) 0.3 mg/dL 0.1-1.0 Serum or plasma alkaline phosphatase measurement (enzymatic activity/volume) 98 U/L 40-136 Serum or plasma aspartate aminotransferase measurement (enzymatic activity/ volume) 11 U/L 5-34 Serum or plasma alanine aminotransferase measurement (enzymatic activity/volume ) 13 U/L 0-55 Serum or plasma protein measurement (mass/volume) 7.3 g/dL 6.4-8.2 Serum or plasma albumin measurement (mass/volume) 3.0 g/dL 3.2-4.5 Capillary blood glucose measurement by glucometer (mass/volume) - 04/06/16 05: 33 Capillary blood glucose measurement by glucometer (mass/volume) 123 mg/dL 70-110 Complete blood count (CBC) with automated white blood cell (WBC) differential - 04/06/16 05:47 Blood leukocytes automated count (number/volume) 11.3 10*3/uL 4.3-11.0 Blood erythrocytes automated count (number/volume) 4.58 10*6/uL 4.35-5.85 Venous blood hemoglobin measurement (mass/volume) 12.4 g/dL 13.3-17.7 Blood hematocrit (volume fraction) 38 % 40-54 Automated erythrocyte mean corpuscular volume 82 [foz_us] 80-99 Automated erythrocyte mean corpuscular hemoglobin (mass per erythrocyte) 27 pg 25-34 Automated erythrocyte mean corpuscular hemoglobin concentration measurement ( mass/volume) 33 g/dL 32-36 Automated erythrocyte distribution width ratio 14.0 % 10.0-14.5 Automated blood platelet count (count/volume) 335 10*3/uL 130-400 Automated blood platelet mean volume measurement 9.4 [foz_us] 7.4-10.4 Automated blood neutrophils/100 leukocytes 75 % 42-75 Automated blood lymphocytes/100 leukocytes 15 % 12-44 Blood monocytes/100 leukocytes 9 % 0-12 Automated blood eosinophils/100 leukocytes 1 % 0-10 Automated blood basophils/100 leukocytes 0 % 0-10 Blood neutrophils automated count (number/volume) 8.5 10*3 1.8-7.8 Blood lymphocytes automated count (number/volume) 1.7 10*3 1.0-4.0 Blood monocytes automated count (number/volume) 1.0 10*3 0.0-1.0 Automated eosinophil count 0.1 10*3/uL 0.0-0.3 Automated blood basophil count (count/volume) 0.0 10*3/uL 0.0-0.1 Comprehensive metabolic panel - 04/06/16 05:47 Serum or plasma sodium measurement (moles/volume) 134 mmol/L 135-145 Serum or plasma potassium measurement (moles/volume) 4.3 mmol/L 3.6-5.0 Serum or plasma chloride measurement (moles/volume) 102 mmol/L 98-107 Carbon dioxide 26 mmol/L 21-32 Serum or plasma anion gap determination (moles/volume) 6 mmol/L 5-14 Serum or plasma urea nitrogen measurement (mass/volume) 12 mg/dL 7-18 Serum or plasma creatinine measurement (mass/volume) 0.71 mg/dL 0.60-1.30 Serum or plasma urea nitrogen/creatinine mass ratio 17 NRG Serum or plasma creatinine measurement with calculation of estimated glomerular filtration rate > NRG Serum or plasma glucose measurement (mass/volume) 115 mg/dL 70-105 Serum or plasma calcium measurement (mass/volume) 8.8 mg/dL 8.5-10.1 Serum or plasma total bilirubin measurement (mass/volume) 0.3 mg/dL 0.1-1.0 Serum or plasma alkaline phosphatase measurement (enzymatic activity/volume) 97 U/L 40-136 Serum or plasma aspartate aminotransferase measurement (enzymatic activity/ volume) 16 U/L 5-34 Serum or plasma alanine aminotransferase measurement (enzymatic activity/volume ) 15 U/L 0-55 Serum or plasma protein measurement (mass/volume) 7.2 g/dL 6.4-8.2 Serum or plasma albumin measurement (mass/volume) 2.9 g/dL 3.2-4.5 Capillary blood glucose measurement by glucometer (mass/volume) - 04/06/16 16: 47 Capillary blood glucose measurement by glucometer (mass/volume) 101 mg/dL 70-110 Complete blood count (CBC) with automated white blood cell (WBC) differential - 04/07/16 06:08 Blood leukocytes automated count (number/volume) 11.0 10*3/uL 4.3-11.0 Blood erythrocytes automated count (number/volume) 4.32 10*6/uL 4.35-5.85 Venous blood hemoglobin measurement (mass/volume) 11.7 g/dL 13.3-17.7 Blood hematocrit (volume fraction) 35 % 40-54 Automated erythrocyte mean corpuscular volume 82 [foz_us] 80-99 Automated erythrocyte mean corpuscular hemoglobin (mass per erythrocyte) 27 pg 25-34 Automated erythrocyte mean corpuscular hemoglobin concentration measurement ( mass/volume) 33 g/dL 32-36 Automated erythrocyte distribution width ratio 13.7 % 10.0-14.5 Automated blood platelet count (count/volume) 310 10*3/uL 130-400 Automated blood platelet mean volume measurement 9.6 [foz_us] 7.4-10.4 Automated blood neutrophils/100 leukocytes 72 % 42-75 Automated blood lymphocytes/100 leukocytes 16 % 12-44 Blood monocytes/100 leukocytes 10 % 0-12 Automated blood eosinophils/100 leukocytes 2 % 0-10 Automated blood basophils/100 leukocytes 0 % 0-10 Blood neutrophils automated count (number/volume) 8.0 10*3 1.8-7.8 Blood lymphocytes automated count (number/volume) 1.8 10*3 1.0-4.0 Blood monocytes automated count (number/volume) 1.1 10*3 0.0-1.0 Automated eosinophil count 0.2 10*3/uL 0.0-0.3 Automated blood basophil count (count/volume) 0.0 10*3/uL 0.0-0.1 Blood manual differential performed detection - 04/07/16 06:08 Blood monocytes/100 leukocytes 7 % NRG Manual blood segmented neutrophils/100 leukocytes 74 % NRG Blood band neutrophils/100 leukocytes 4 % NRG Manual blood lymphocytes/100 leukocytes 13 % NRG Manual eosinophils/100 leukocytes in nose 1 % NRG Manual blood basophils/100 leukocytes 1 % NRG Blood erythrocyte morphology finding identification NORMAL [facility] Comprehensive metabolic panel - 04/07/16 06:08 Serum or plasma sodium measurement (moles/volume) 133 mmol/L 135-145 Serum or plasma potassium measurement (moles/volume) 4.3 mmol/L 3.6-5.0 Serum or plasma chloride measurement (moles/volume) 101 mmol/L 98-107 Carbon dioxide 23 mmol/L 21-32 Serum or plasma anion gap determination (moles/volume) 9 mmol/L 5-14 Serum or plasma urea nitrogen measurement (mass/volume) 14 mg/dL 7-18 Serum or plasma creatinine measurement (mass/volume) 0.69 mg/dL 0.60-1.30 Serum or plasma urea nitrogen/creatinine mass ratio 20 NRG Serum or plasma creatinine measurement with calculation of estimated glomerular filtration rate > NRG Serum or plasma glucose measurement (mass/volume) 102 mg/dL 70-105 Serum or plasma calcium measurement (mass/volume) 8.6 mg/dL 8.5-10.1 Serum or plasma total bilirubin measurement (mass/volume) 0.3 mg/dL 0.1-1.0 Serum or plasma alkaline phosphatase measurement (enzymatic activity/volume) 80 U/L 40-136 Serum or plasma aspartate aminotransferase measurement (enzymatic activity/ volume) 15 U/L 5-34 Serum or plasma alanine aminotransferase measurement (enzymatic activity/volume ) 16 U/L 0-55 Serum or plasma protein measurement (mass/volume) 7.1 g/dL 6.4-8.2 Serum or plasma albumin measurement (mass/volume) 2.9 g/dL 3.2-4.5 Methicillin resistant Staphylococcus aureus (MRSA) screening culture - 12:30 Methicillin resistant Staphylococcus aureus (MRSA) screening culture NEG NRG Bacteria identification in isolate by anaerobe culture - 04/07/16 17:00 Bacteria identification in isolate by anaerobe culture NG NRG Gram stain microscopy - 04/07/16 17:00 GRAM STAIN RESULT NO BACTERIA OBSERVED NRG Bacteria identification in wound by culture - 04/07/16 17:00 Bacteria identification in wound by culture NG NRG Complete blood count (CBC) with automated white blood cell (WBC) differential - 04/08/16 10:35 Blood leukocytes automated count (number/volume) 16.5 10*3/uL 4.3-11.0 Blood erythrocytes automated count (number/volume) 4.24 10*6/uL 4.35-5.85 Venous blood hemoglobin measurement (mass/volume) 11.5 g/dL 13.3-17.7 Blood hematocrit (volume fraction) 34 % 40-54 Automated erythrocyte mean corpuscular volume 81 [foz_us] 80-99 Automated erythrocyte mean corpuscular hemoglobin (mass per erythrocyte) 27 pg 25-34 Automated erythrocyte mean corpuscular hemoglobin concentration measurement ( mass/volume) 34 g/dL 32-36 Automated erythrocyte distribution width ratio 13.5 % 10.0-14.5 Automated blood platelet count (count/volume) 344 10*3/uL 130-400 Automated blood platelet mean volume measurement 9.5 [foz_us] 7.4-10.4 Automated blood neutrophils/100 leukocytes 83 % 42-75 Automated blood lymphocytes/100 leukocytes 9 % 12-44 Blood monocytes/100 leukocytes 7 % 0-12 Automated blood eosinophils/100 leukocytes 0 % 0-10 Automated blood basophils/100 leukocytes 0 % 0-10 Blood neutrophils automated count (number/volume) 13.7 10*3 1.8-7.8 Blood lymphocytes automated count (number/volume) 1.5 10*3 1.0-4.0 Blood monocytes automated count (number/volume) 1.2 10*3 0.0-1.0 Automated eosinophil count 0.0 10*3/uL 0.0-0.3 Automated blood basophil count (count/volume) 0.0 10*3/uL 0.0-0.1 Comprehensive metabolic panel - 04/08/16 10:35 Serum or plasma sodium measurement (moles/volume) 132 mmol/L 135-145 Serum or plasma potassium measurement (moles/volume) 4.3 mmol/L 3.6-5.0 Serum or plasma chloride measurement (moles/volume) 100 mmol/L 98-107 Carbon dioxide 24 mmol/L 21-32 Serum or plasma anion gap determination (moles/volume) 8 mmol/L 5-14 Serum or plasma urea nitrogen measurement (mass/volume) 18 mg/dL 7-18 Serum or plasma creatinine measurement (mass/volume) 0.77 mg/dL 0.60-1.30 Serum or plasma urea nitrogen/creatinine mass ratio 23 NRG Serum or plasma creatinine measurement with calculation of estimated glomerular filtration rate > NRG Serum or plasma glucose measurement (mass/volume) 163 mg/dL 70-105 Serum or plasma calcium measurement (mass/volume) 8.7 mg/dL 8.5-10.1 Serum or plasma total bilirubin measurement (mass/volume) 0.3 mg/dL 0.1-1.0 Serum or plasma alkaline phosphatase measurement (enzymatic activity/volume) 111 U/L 40-136 Serum or plasma aspartate aminotransferase measurement (enzymatic activity/ volume) 14 U/L 5-34 Serum or plasma alanine aminotransferase measurement (enzymatic activity/volume ) 17 U/L 0-55 Serum or plasma protein measurement (mass/volume) 7.1 g/dL 6.4-8.2 Serum or plasma albumin measurement (mass/volume) 3.0 g/dL 3.2-4.5 Complete blood count (CBC) with automated white blood cell (WBC) differential - 04/09/16 09:58 Blood leukocytes automated count (number/volume) 10.2 10*3/uL 4.3-11.0 Blood erythrocytes automated count (number/volume) 4.24 10*6/uL 4.35-5.85 Venous blood hemoglobin measurement (mass/volume) 11.6 g/dL 13.3-17.7 Blood hematocrit (volume fraction) 35 % 40-54 Automated erythrocyte mean corpuscular volume 83 [foz_us] 80-99 Automated erythrocyte mean corpuscular hemoglobin (mass per erythrocyte) 27 pg 25-34 Automated erythrocyte mean corpuscular hemoglobin concentration measurement ( mass/volume) 33 g/dL 32-36 Automated erythrocyte distribution width ratio 13.9 % 10.0-14.5 Automated blood platelet count (count/volume) 289 10*3/uL 130-400 Automated blood platelet mean volume measurement 9.7 [foz_us] 7.4-10.4 Automated blood neutrophils/100 leukocytes 59 % 42-75 Automated blood lymphocytes/100 leukocytes 28 % 12-44 Blood monocytes/100 leukocytes 11 % 0-12 Automated blood eosinophils/100 leukocytes 2 % 0-10 Automated blood basophils/100 leukocytes 0 % 0-10 Blood neutrophils automated count (number/volume) 6.1 10*3 1.8-7.8 Blood lymphocytes automated count (number/volume) 2.8 10*3 1.0-4.0 Blood monocytes automated count (number/volume) 1.1 10*3 0.0-1.0 Automated eosinophil count 0.2 10*3/uL 0.0-0.3 Automated blood basophil count (count/volume) 0.0 10*3/uL 0.0-0.1 Comprehensive metabolic panel - 04/09/16 09:58 Serum or plasma sodium measurement (moles/volume) 136 mmol/L 135-145 Serum or plasma potassium measurement (moles/volume) 3.8 mmol/L 3.6-5.0 Serum or plasma chloride measurement (moles/volume) 103 mmol/L 98-107 Carbon dioxide 24 mmol/L 21-32 Serum or plasma anion gap determination (moles/volume) 9 mmol/L 5-14 Serum or plasma urea nitrogen measurement (mass/volume) 20 mg/dL 7-18 Serum or plasma creatinine measurement (mass/volume) 0.74 mg/dL 0.60-1.30 Serum or plasma urea nitrogen/creatinine mass ratio 27 NRG Serum or plasma creatinine measurement with calculation of estimated glomerular filtration rate > NRG Serum or plasma glucose measurement (mass/volume) 113 mg/dL 70-105 Serum or plasma calcium measurement (mass/volume) 8.3 mg/dL 8.5-10.1 Serum or plasma total bilirubin measurement (mass/volume) 0.3 mg/dL 0.1-1.0 Serum or plasma alkaline phosphatase measurement (enzymatic activity/volume) 87 U/L 40-136 Serum or plasma aspartate aminotransferase measurement (enzymatic activity/ volume) 10 U/L 5-34 Serum or plasma alanine aminotransferase measurement (enzymatic activity/volume ) 13 U/L 0-55 Serum or plasma protein measurement (mass/volume) 6.6 g/dL 6.4-8.2 Serum or plasma albumin measurement (mass/volume) 2.9 g/dL 3.2-4.5 Complete blood count (CBC) with automated white blood cell (WBC) differential - 04/10/16 04:50 Blood leukocytes automated count (number/volume) 9.8 10*3/uL 4.3-11.0 Blood erythrocytes automated count (number/volume) 4.24 10*6/uL 4.35-5.85 Venous blood hemoglobin measurement (mass/volume) 11.4 g/dL 13.3-17.7 Blood hematocrit (volume fraction) 35 % 40-54 Automated erythrocyte mean corpuscular volume 83 [foz_us] 80-99 Automated erythrocyte mean corpuscular hemoglobin (mass per erythrocyte) 27 pg 25-34 Automated erythrocyte mean corpuscular hemoglobin concentration measurement ( mass/volume) 33 g/dL 32-36 Automated erythrocyte distribution width ratio 14.1 % 10.0-14.5 Automated blood platelet count (count/volume) 296 10*3/uL 130-400 Automated blood platelet mean volume measurement 9.8 [foz_us] 7.4-10.4 Automated blood neutrophils/100 leukocytes 60 % 42-75 Automated blood lymphocytes/100 leukocytes 27 % 12-44 Blood monocytes/100 leukocytes 11 % 0-12 Automated blood eosinophils/100 leukocytes 2 % 0-10 Automated blood basophils/100 leukocytes 0 % 0-10 Blood neutrophils automated count (number/volume) 5.9 10*3 1.8-7.8 Blood lymphocytes automated count (number/volume) 2.7 10*3 1.0-4.0 Blood monocytes automated count (number/volume) 1.1 10*3 0.0-1.0 Automated eosinophil count 0.2 10*3/uL 0.0-0.3 Automated blood basophil count (count/volume) 0.0 10*3/uL 0.0-0.1 Comprehensive metabolic panel - 04/10/16 04:50 Serum or plasma sodium measurement (moles/volume) 136 mmol/L 135-145 Serum or plasma potassium measurement (moles/volume) 4.1 mmol/L 3.6-5.0 Serum or plasma chloride measurement (moles/volume) 101 mmol/L 98-107 Carbon dioxide 26 mmol/L 21-32 Serum or plasma anion gap determination (moles/volume) 9 mmol/L 5-14 Serum or plasma urea nitrogen measurement (mass/volume) 16 mg/dL 7-18 Serum or plasma creatinine measurement (mass/volume) 0.75 mg/dL 0.60-1.30 Serum or plasma urea nitrogen/creatinine mass ratio 21 NRG Serum or plasma creatinine measurement with calculation of estimated glomerular filtration rate > NRG Serum or plasma glucose measurement (mass/volume) 91 mg/dL 70-105 Serum or plasma calcium measurement (mass/volume) 9.2 mg/dL 8.5-10.1 Serum or plasma total bilirubin measurement (mass/volume) 0.3 mg/dL 0.1-1.0 Serum or plasma alkaline phosphatase measurement (enzymatic activity/volume) 89 U/L 40-136 Serum or plasma aspartate aminotransferase measurement (enzymatic activity/ volume) 12 U/L 5-34 Serum or plasma alanine aminotransferase measurement (enzymatic activity/volume ) 16 U/L 0-55 Serum or plasma protein measurement (mass/volume) 6.7 g/dL 6.4-8.2 Serum or plasma albumin measurement (mass/volume) 3.0 g/dL 3.2-4.5 Bacteria identification in isolate by anaerobe culture - 04/21/16 09:50 Bacteria identification in isolate by anaerobe culture NOANA NRG Gram stain microscopy - 04/21/16 09:50 GRAM STAIN RESULT FEW WBC'S, NO BACTERIA OBSERVED NRG Bacteria identification in wound by culture - 04/21/16 09:50 Bacteria identification in wound by culture [id number] NR FREE TEXT EXTERNAL (2 DIFFERNT COLONY TYPES) NRG QUANTITY OF GROWTH Scant Growth [facility] Bacterial susceptibility panel - 04/21/16 09:50 Oxacillin susceptibility test by minimum inhibitory concentration > = NRG Gentamicin susceptibility test by minimum inhibitory concentration < = NRG Clindamycin susceptibility test by minimum inhibitory concentration <= NRG Erythromycin susceptibility test by minimum inhibitory concentration <= NRG Trimethoprim/sulfamethoxazole susceptibility test by minimum inhibitoryconcentration <= NRG Vancomycin susceptibility test by minimum inhibitory concentration < = NRG Levofloxacin susceptibility test by minimum inhibitory concentration <= NRG Rifampin susceptibility test by minimum inhibitory concentration <= NRG Tetracycline susceptibility test by minimum inhibitory concentration <= NRG Gram stain microscopy - 09/06/17 13:20 GRAM STAIN RESULT NO WBC'S OR BACTERIA OBSERVED NRG Bacteria identification in wound by culture - 09/06/17 13:20 Bacteria identification in wound by culture [id number] NRG QUANTITY OF GROWTH Scant Growth NRG Encounters ACCT No. Visit Date/Time Discharge Status Pt. Type Provider Facility Loc./Unit Complaint [id number] 09/06/2017 11:16:00 09/06/2017 13:24:00 DIS Emergency GABRIELA LONDONO [facility] [address] ER SUTURE REMOVAL LEFT LEG SWELLING [id number] 08/30/2017 14:27:00 08/30/2017 15:04:00 DIS Emergency MARJ BARDALES APRN [facility] [address] ER LEFT LEG LAC [id number] 02/21/2017 14:47:00 02/21/2017 16:05:00 DIS Emergency PAYAM COLEMAN, MIGUEL ANGEL Mckeon [facility] [address] ER L KNEECAP PAIN, SOA, L SIDE PAIN [id number] 07/19/2016 08:35:00 07/19/2016 16:00:00 DIS Outpatient MAUREEN GARCIA MD [facility] [address] WOUNDCARE [id number] 06/07/2016 08:28:00 06/07/2016 16:00:00 DIS Outpatient MAUREEN GARCIA MD [facility] [address] WOUNDCARE [id number] 04/01/2016 18:11:00 04/11/2016 16:15:00 DIS Inpatient ANDRIY BALL MD [facility] [address] 4TH CELLULITIS RLE [id number] 07/23/2013 09:37:00 07/23/2013 11:33:00 DIS Emergency STEWART REBOLLAR DO [facility] [address] ER LEFT LEG PAIN/NUMBNESS [id number] 02/20/2013 10:33:00 02/20/2013 13:00:00 DIS Emergency WILLIAM KISER MD [facility] [address] ER LEFT LEG LAC [id number] 12/04/2012 10:05:00 12/04/2012 10:53:00 DIS Emergency GAVIN VAZQUEZ DO [facility] [address] ER WOUND CHECK [id number] 12/02/2012 14:34:00 12/02/2012 16:51:00 DIS Emergency MIGUE DUPONT [facility] [address] ER KNOT ON BACK OF NECK [id number] 11/01/2012 13:51:00 11/01/2012 15:01:00 DIS Emergency MIGUE DUPONT [facility] [address] ER RASH [id number] 10/07/2012 13:32:00 10/07/2012 14:43:00 DIS Emergency KATHE LATIF MD [facility] [address] ER FB RT EYE [id number] 01/30/2014 14:44:00 Document Registration [id number] 01/30/2014 14:44:00 Document Registration [id number] 05/06/2011 22:58:00 Document Registration [id number] 03/31/2011 13:50:00 Document Registration [id number] 05/27/2010 06:45:00 Document Registration [id number] 03/02/2010 15:56:00 Document Registration
--- OUTSIDE RECORDS SUMMARY | 2018-04-15 12:12 | XMS REPORT | Continuity of Care Document ---
Author Author [facility] Organization [facility] Address Unknown Phone Unavailable Care Team Providers Care Top Collar Maker Name Role Phone NO, LOCAL PHYSICIAN PP Unavailable Insurance Providers Payer Name Policy Number Subscriber Name Relationship Self Pay Oswaldo Coronado Jr 01 Self / Same As Patient Advance Directives Directive Response Recorded Date Advance Directives N 11/01/12 1:55pm Problems No Known Problems or Medical conditions. Social History History Response Recorded Date/Time Alcohol Use Occasionally Uses 11/01/12 1: 55pm Recreational Drug Use N 11/01/12 1:55pm Allergies, Adverse Reactions, Alerts Allergen Type Severity Reaction Last Updated NKDA Allergy Mild 12/13/08 Medications Medication Dose Units Route Sig Qty Days Nystatin (Nystatin Cream 15 Gm) 0 TP [...] 2008 12:01pm NONE /HPF - Urine Specific [place] December 03, 2008 12:01pm 1.015 L - [...] March 02, 2010 3:56pm Referred Lab Report [id number] - Estimat Glomerular Filtration Rate May 06, [...] Date/Time Registered Emergency Room [facility] 11/01/12 1:51pm Departed Emergency Room [facility] 1:32pm
--- NOTE | 2018-04-15 12:29 | ED Cough/URI ---
General Chief Complaint: Cough/Cold/Flu Symptoms Stated Complaint: COUGH;TROUBLE BREATHING AT NIGHT Nursing Triage Note: PATIENT STATES THAT HE HAS HAD A COUGH FOR 1 WEEK. SOB AT NIGHT. DAYQUIL NOT HELPING. Sepsis Screen: No Definite Risk Source: patient Exam Limitations: no limitations History of Present Illness Date Seen by Provider: Apr 15, 2018 Time Seen by Provider: 12:15 Initial Comments 47-year-old male who presents to the emergency room with complaints of productive cough for 1 week. Reports shortness of breath at night. He reports that he is using [id number] DayQuil/NyQuil without relief. Timing/Duration: week Associated Symptoms: cough, nasal congestion, shortness of breath Allergies and Home Medications Allergies Coded Allergies: No Known Drug Allergies (Unverified , 07/23/13) Home Medications Azithromycin 250 Mg Tablet, 250 MG PO UD TAKE 2 TABLETS TODAY, THEN TAKE 1 TABLET DAILY FOR 4 MORE DAYS Prescribed by: GABRIELA LONDONO on 04/15/18 1543 Promethazine/Dextromethorphan 473 Ml Syrup, 5 ML PO Q6H PRN for COUGH Prescribed by: GABRIELA LONDONO on 04/15/18 1543 Patient Home Medication List Home Medication List Reviewed: Yes Review of Systems Review of Systems Constitutional: no symptoms reported, see HPI Respiratory: see HPI, cough, phlegm, short of breath (at night ) All Other Systems Reviewed Negative Unless Noted: Yes Past Svjpjlc-Wmtohm-Shvrlp Hx Past Med/Social Hx: Reviewed Nursing Past Med/Soc Hx Patient Social History Alcohol Beverage of Choice: Beer Recent Foreign Travel: No Contact w/Someone Who Travel: No Recent Infectious Disease Expo: No Recent Hopitalizations: No Immunizations Up To Date Tetanus Booster (TDap): Less than 5yrs PED Vaccines UTD: No Seasonal Allergies Seasonal Allergies: No Past Medical History Surgeries: Yes (HEART SURG AT ) Orthopedic, Valve Replacement Respiratory: No Cardiac: Yes Valvular Heart Disease Neurological: No Reproductive Disorders: No Genitourinary: No Gastrointestinal: No Musculoskeletal: No Endocrine: Yes Diabetes, Non-Insulin dep HEENT: No Cancer: No Psychosocial: No Integumentary: No Blood Disorders: No Adverse Reaction/Blood Tranf: No Family Medical History Reviewed Nursing Family Hx Diabetes mellitus 19 MOTHER Hypertension 19 FATHER 19 MOTHER Diabetes Physical Exam Vital Signs - First Documented 04/15/18 04/15/18 12:15 13:15 Temp 96.9 Pulse 78 Resp 18 B/P (MAP) 145/100 (115) Pulse Ox 96 O2 Delivery Room Air Capillary Refill : Less Than 3 Seconds Height: 5'5.00" Weight: 180lbs. 0oz. 81.359460cc; 0.0 BMI Method:Stated General Appearance: WD/WN, no apparent distress Eyes: Bilateral Eye Normal Inspection, Bilateral Eye PERRL, Bilateral Eye EOMI HEENT: PERRL/EOMI, normal ENT inspection, TMs normal, pharynx normal Respiratory: chest non-tender, no respiratory distress, no accessory muscle use , wheezing (faint wheezes throughout lung valdes.) Cardiovascular: normal peripheral pulses, regular rate, rhythm, no edema, no gallop, no JVD, no murmur Gastrointestinal: normal bowel sounds, non tender, soft, no organomegaly, no pulsatile mass Extremities: no pedal edema, normal capillary refill Neurologic/Psychiatric: alert, normal mood/affect, oriented x 3 Skin: normal color, warm/dry Procedures/Interventions Suture Size: 4-0 Progress/Results/Core Measures Suspected Sepsis Recent Fever Within 48 Hours: No Infection Criteria Present: None New/Unexplained Altered Menta: No Sepsis Screen: No Definite Risk SIRS Temperature:96.9 Pulse: 78 Respiratory Rate: 18 Laboratory Tests 04/15/18 12:43: White Blood Count 4.9 Blood Pressure 145 /100 Mean: 115 Laboratory Tests 04/15/18 12:43: Creatinine 0.84, Platelet Count 171, Total Bilirubin 0.5 Results/Orders Lab Results Laboratory Tests Test 04/15/18 12:43 04/15/18 15:40 Range/Units White Blood Count 4.9 4.3-11.0 10^3/uL Red Blood Count 4.97 4.35-5.85 10^6/uL Hemoglobin 13.4 13.3-17.7 G/DL Hematocrit 40 40-54 % Mean Corpuscular Volume 81 80-99 FL Mean Corpuscular Hemoglobin 27 25-34 PG Mean Corpuscular Hemoglobin Concent 33 32-36 G/DL Red Cell Distribution Width 13.2 10.0-14.5 % Platelet Count 171 130-400 10^3/uL Mean Platelet Volume 10.7 H 7.4-10.4 FL Neutrophils (%) (Auto) 53 42-75 % Lymphocytes (%) (Auto) 33 12-44 % Monocytes (%) (Auto) 12 0-12 % Eosinophils (%) (Auto) 3 0-10 % Basophils (%) (Auto) 0 0-10 % Neutrophils # (Auto) 2.6 1.8-7.8 X 10^3 Lymphocytes # (Auto) 1.6 1.0-4.0 X 10^3 Monocytes # (Auto) 0.6 0.0-1.0 X 10^3 Eosinophils # (Auto) 0.1 0.0-0.3 10^3/uL Basophils # (Auto) 0.0 0.0-0.1 10^3/uL Sodium Level 133 L 135-145 MMOL/L Potassium Level 4.1 3.6-5.0 MMOL/L Chloride Level 99 98-107 MMOL/L Carbon Dioxide Level 25 21-32 MMOL/L Anion Gap 9 5-14 MMOL/L Blood Urea Nitrogen 9 7-18 MG/DL Creatinine 0.84 0.60-1.30 MG/DL Estimat Glomerular Filtration Rate > 60 BUN/Creatinine Ratio 11 Glucose Level 433 *H 70-105 MG/DL Calcium Level 8.5 8.5-10.1 MG/DL Corrected Calcium 8.7 8.5-10.1 MG/DL Total Bilirubin 0.5 0.1-1.0 MG/DL Aspartate Amino Transf (AST/SGOT) 23 5-34 U/L Alanine Aminotransferase (ALT/SGPT) 57 H 0-55 U/L Alkaline Phosphatase 118 40-136 U/L B-Type Natriuretic Peptide 53.2 <100.0 PG/ML Total Protein 7.1 6.4-8.2 GM/DL Albumin 3.8 3.2-4.5 GM/DL Glucometer 237 H 70-110 MG/DL My Orders Orders - BERNOT,GABRIELA Cbc With Automated Diff (04/15/18 12:26) Comprehensive Metabolic Panel (04/15/18 12:26) BNP (04/15/18 12:26) Albuterol/Ipra Inhalation Soln (Duoneb I (04/15/18 12:30) Chest Pa/Lat (2 View) (04/15/18 12:26) Saline Lock/Iv-Start (04/15/18 12:26) Svn Small Volume Nebulizer (04/15/18 12:26) Ns Iv 1000 Ml (Sodium Chloride 0.9%) (04/15/18 14:45) Rx-Albuterol Inhaler (Rx-Proair) (04/15/18 15:51) Medications Given in ED Vital Signs/I&O 04/15/18 04/15/18 04/15/18 12:15 13:15 16:20 Temp 96.9 96.9 Pulse 78 78 Resp 18 18 B/P (MAP) 145/100 (115) 145/100 (115) Pulse Ox 96 95 95 O2 Delivery Room Air Room Air Capillary Refill : Less Than 3 Seconds Blood Pressure Mean: 115 Progress Note : Time: 15:42 Progress Note I have seen and evaluated the patient. I have informed him of his imaging studies and laboratory results. His wheezing has resolved after breathing treatment, blood sugar is improved after fluids. I am hesitant to give insulin due to no history of DM or insulin use. He agrees with plan of care, plans for discharge, close follow up was instructed, return precautions were given. Departure Impression Primary Impression: Bronchitis Disposition: 01 HOME, SELF-CARE Condition: Stable/Unchanged Departure-Patient Inst. Decision time for Depature: 15:42 Referrals: NO,LOCAL PHYSICIAN (PCP/Family) Primary Care Physician Patient Instructions: Acute Bronchitis, Adult (DC) Add. Discharge Instructions: Take medications as directed. Follow-up with [facility] within 1 week for an appointment in regards to your elevated blood sugar. Call today for an appointment time. Return back to the emergency room for worsening symptoms or concerns as needed. All discharge instructions reviewed with patient and/or family. Voiced understanding. Scripts Promethazine/Dextromethorphan (Promethazine-Dm Syrup) 473 Ml Syrup 5 ML PO Q6H PRN for COUGH, #60 ML Prov: GABRIELA LONDONO 04/15/18 Azithromycin (Zithromax) 250 Mg Tablet 250 MG PO UD, #6 TAB TAKE 2 TABLETS TODAY, THEN TAKE 1 TABLET DAILY FOR 4 MORE DAYS Prov: GABRIELA LONDONO 04/15/18 Work/School Note: Work Release Form Date Seen in the Emergency Department: Apr 15, 2018 Return to Work: Apr 16, 2018 Restrictions: No Restrictions GABRIELA LONDONO Apr 15, 2018 12:29
[2018-04-15] MEDS ORDERED: RT-ALBUTEROL/IPRATROPIUM 3 ML (DUONEB) VIAL INH ONE (12:30)
[2018-04-15 12:50] LABS: BASOPHILS % (AUTO) 0 % (0-10); EOSINOPHILS # (AUTO) 0.1 10^3/uL (0.0-0.3); EOSINOPHILS % (AUTO) 3 % (0-10); HEMATOCRIT 40 % (40-54); HEMOGLOBIN 13.4 G/DL (13.3-17.7); LYMPHOCYTES # (AUTO) 1.6 X 10^3 (1.0-4.0); LYMPHOCYTES % (AUTO) 33 % (12-44); MEAN CORPUSCULAR HEMOGLOBIN 27 PG (25-34); MEAN CORPUSCULAR HGB CONC 33 G/DL (32-36); MEAN CORPUSCULAR VOLUME 81 FL (80-99); MEAN PLATELET VOLUME 10.7 FL (7.4-10.4); MONOCYTES # (AUTO) 0.6 X 10^3 (0.0-1.0); MONOCYTES % (AUTO) 12 % (0-12); NEUTROPHILS # (AUTO) 2.6 X 10^3 (1.8-7.8); NEUTROPHILS % (AUTO) 53 % (42-75); PLATELET COUNT 171 10^3/uL (130-400); RED CELL DISTRIBUTION WIDTH 13.2 % (10.0-14.5); WHITE BLOOD COUNT 4.9 10^3/uL (4.3-11.0)
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
[2018-04-15 13:20] LABS: ALANINE AMINOTRANSFERASE 57 U/L (0-55); ALBUMIN 3.8 GM/DL (3.2-4.5); ALKALINE PHOSPHATASE 118 U/L (40-136); BILIRUBIN,TOTAL 0.5 MG/DL (0.1-1.0); BUN/CREATININE RATIO 11; CALCIUM 8.5 MG/DL (8.5-10.1); CARBON DIOXIDE 25 MMOL/L (21-32); CHLORIDE 99 MMOL/L (98-107); CREATININE SERUM 0.84 MG/DL (0.60-1.30); GFR ESTIMATED > 60; POTASSIUM 4.1 MMOL/L (3.6-5.0); SODIUM 133 MMOL/L (135-145); TOTAL PROTEIN 7.1 GM/DL (6.4-8.2)
[2018-04-15 13:31] LABS: GLUCOSE 433 MG/DL (70-105)
[2018-04-15] MEDS ORDERED: NS IV 1000 ML 1,000 ML IV SCH (14:45)
[2018-04-15] MEDS ORDERED: AZIT250T PO (15:43)
[2018-04-15] MEDS ORDERED: D-ME473S38 PO (15:43)
[2018-04-15] MEDS ORDERED: RX-ALBUTEROL INHALER (PROAIR) 8 GM IH STA (15:51)
[2018-04-15 16:20] VITALS: BP 145/100
== END 2018-04-15 16:20 | disposition home or self-care (01) ==
LOC: EDUNIT# 12:06 → ER 12:07
DX: J40 Bronchitis, not specified as acute or chronic (principal); E11.9 Type 2 diabetes mellitus without complications
CPT/HCPCS: 36415; 71046; 80053; 82962; 83880; 85025; 94640

== ENCOUNTER 2018-05-16 09:50 | Emergency (ER) | payer SELFPAY ==
[~2018-05-16] VITALS: Ht 162.6 cm; Wt 72.6 kg
[~2018-05-16 09:50] MED LIST changes: +AZIT250T PO; +D-ME473S38 PO
--- OUTSIDE RECORDS SUMMARY | 2018-05-16 10:27 | XMS REPORT | Continuity of Care Document ---
Author Author [facility] Organization [facility] Address Unknown Phone Unavailable Allergies Active Description Code Type Severity Reaction Onset Reported/Identified Relationship to Patient Clinical Status Yes No Known Drug Allergies [id number] Drug Allergy Unknown N/A 07/23/2013 Medications There [...] Ot 782.2 LOCAL SUPRFICIAL SWELLNG 12/04/2012 GEORGE GAVIN Garcia Ot 682.2 CELLULITIS OF TRUNK 02/20/2013 WILLIAM [...] OTHER CHRONIC DISEASES CLASSIF 04/11/2016 ANDRIY BALL MD, Ot D72.819 DECREASED WHITE BLOOD CELL COUNT, [...] MELLITUS WITH OTHER SKIN 05/16/2016 MAUREEN GARCIA MD, Ot L03.115 CELLULITIS OF [...] TYPE 2 DIABETES MELLITUS WITHOUT COMPLIC 09/06/2017 BERNKITTY NINOIS Ot L03.115 CELLULITIS OF RIGHT LOWER LIMB 09/06/2017 BERNTRUNG GABRIELA Ot S81.812D LACERATION WITHOUT FOREIGN BODY, LEFT LO 09/06/2017 BERNKITTY NINOIS Ot X58.XXXD EXPOSURE TO OTHER SPECIFIED FACTORS, SUB 09/06/2017 BERNOT GABRIELA Ot Z95.0 PRESENCE OF CARDIAC PACEMAKER 09/10/2017 BERNTRUNG GABRIELA Ot E11.9 TYPE 2 DIABETES MELLITUS WITHOUT COMPLIC 09/10/2017 BERNOT GABRIELA Ot L03.115 CELLULITIS OF RIGHT LOWER LIMB 09/10/2017 BERNOT GABRIELA Ot S81.812D LACERATION WITHOUT FOREIGN BODY, LEFT LO 09/10/2017 BERNOTKITTYIS Ot X58.XXXD EXPOSURE TO OTHER SPECIFIED FACTORS, SUB 09/10/2017 BERNOTKITTYIS Ot Z95.0 PRESENCE OF CARDIAC PACEMAKER 04/17/2018 KITTY LONDONOIS Ot E11.9 TYPE 2 DIABETES MELLITUS WITHOUT COMPLIC 04/17/2018 GABRIELA LONDONO Ot J40 BRONCHITIS, NOT SPECIFIED ACUTE OR CH 04/17/2018 GABRIELA LONDONO Ot R05 COUGH Procedures Code Description Performed By Performed On [id number] EXCISION OF R LOW LEG SUBCU/FASCIA, OPEN [...] 04/07/16 06:08 Blood monocytes/100 leukocytes 7 % NR Manual blood segmented neutrophils/100 leukocytes 74 % NRG Blood band neutrophils/100 leukocytes 4 % NRG Manual blood lymphocytes/100 leukocytes 13 % NRG Manual eosinophils/100 leukocytes in nose 1 % NRG Manual blood basophils/100 leukocytes 1 % NRG Blood erythrocyte morphology finding identification NORMAL [facility] Comprehensive metabolic panel - 04/07/16 [...] identification in isolate by anaerobe culture NG [facility] Gram stain microscopy - 04/07/16 17:00 GRAM [...] 09:50 Bacteria identification in wound by culture [id number] NRG FREE TEXT EXTERNAL (2 DIFFERNT COLONY TYPES) NRG QUANTITY OF GROWTH Scant Growth NRG Bacterial susceptibility panel - 04/21/16 09:50 Oxacillin [...] 13:20 Bacteria identification in wound by culture [id number] NRG QUANTITY OF GROWTH Scant Growth NRG Complete blood count (CBC) with automated white blood cell (WBC) differential - 04/15/18 12:43 Blood leukocytes automated count (number/volume) 4.9 10*3/uL 4.3-11.0 Blood erythrocytes automated count (number/volume) 4.97 10*6/uL 4.35-5.85 Venous blood hemoglobin measurement (mass/volume) 13.4 g/dL 13.3-17.7 Blood hematocrit (volume fraction) 40 % 40-54 Automated erythrocyte mean corpuscular volume 81 [foz_us] 80-99 Automated erythrocyte mean corpuscular hemoglobin (mass per erythrocyte) 27 pg 25-34 Automated erythrocyte mean corpuscular hemoglobin concentration measurement ( mass/volume) 33 g/dL 32-36 Automated erythrocyte distribution width ratio 13.2 % 10.0-14.5 Automated blood platelet count (count/volume) 171 10*3/uL 130-400 Automated blood platelet mean volume measurement 10.7 [foz_us] 7.4-10.4 Automated blood neutrophils/100 leukocytes 53 % 42-75 Automated blood lymphocytes/100 leukocytes 33 % 12-44 Blood monocytes/100 leukocytes 12 % 0-12 Automated blood eosinophils/100 leukocytes 3 % 0-10 Automated blood basophils/100 leukocytes 0 % 0-10 Blood neutrophils automated count (number/volume) 2.6 10*3 1.8-7.8 Blood lymphocytes automated count (number/volume) 1.6 10*3 1.0-4.0 Blood monocytes automated count (number/volume) 0.6 10*3 0.0-1.0 Automated eosinophil count 0.1 10*3/uL 0.0-0.3 Automated blood basophil count (count/volume) 0.0 10*3/uL 0.0-0.1 Comprehensive metabolic panel - 04/15/18 12:43 Serum or plasma sodium measurement (moles/volume) 133 mmol/L 135-145 Serum or plasma potassium measurement (moles/volume) 4.1 mmol/L 3.6-5.0 Serum or plasma chloride measurement (moles/volume) 99 mmol/L 98-107 Carbon dioxide 25 mmol/L 21-32 Serum or plasma anion gap determination (moles/volume) 9 mmol/L 5-14 Serum or plasma urea nitrogen measurement (mass/volume) 9 mg/dL 7-18 Serum or plasma creatinine measurement (mass/volume) 0.84 mg/dL 0.60-1.30 Serum or plasma urea nitrogen/creatinine mass ratio 11 NRG Serum or plasma creatinine measurement with calculation of estimated glomerular filtration rate > NRG Serum or plasma glucose measurement (mass/volume) 433 mg/dL 70-105 Serum or plasma calcium measurement (mass/volume) 8.5 mg/dL 8.5-10.1 Serum or plasma total bilirubin measurement (mass/volume) 0.5 mg/dL 0.1-1.0 Serum or plasma alkaline phosphatase measurement (enzymatic activity/volume) 118 U/L 40-136 Serum or plasma aspartate aminotransferase measurement (enzymatic activity/ volume) 23 U/L 5-34 Serum or plasma alanine aminotransferase measurement (enzymatic activity/volume ) 57 U/L 0-55 Serum or plasma protein measurement (mass/volume) 7.1 g/dL 6.4-8.2 Serum or plasma albumin measurement (mass/volume) 3.8 g/dL 3.2-4.5 CALCIUM CORRECTED 8.7 mg/dL 8.5-10.1 Serum or plasma lithium measurement (moles/volume) - 04/15/18 12:43 BNP level 53.2 pg/mL <100.0 Capillary blood glucose measurement by glucometer (mass/volume) - 04/15/18 15: 40 Capillary blood glucose measurement by glucometer (mass/volume) 237 mg/dL 70-110 Encounters ACCT No. Visit Date/Time Discharge Status Pt. Type Provider Facility Loc./Unit Complaint [id number] 04/15/2018 12:07:00 04/15/2018 16:20:00 DIS Outpatient GABRIELA LONDONO [facility] ER COUGH;TROUBLE BREATHING AT NIGHT [id number] 09/06/2017 11:16:00 09/06/2017 13:24:00 DIS Emergency BRYGABRIELA [facility] ER SUTURE REMOVAL LEFT LEG SWELLING [id number] 08/30/2017 14:27:00 08/30/2017 15:04:00 DIS Emergency MARJ BARDALES APRN [facility] ER LEFT LEG LAC [id number] 02/21/2017 14:47:00 02/21/2017 16:05:00 DIS Emergency PAYAM COLEMAN, MIGUEL ANGEL Mckeon [facility] ER L KNEECAP PAIN, SOA, L SIDE PAIN [id number] 07/19/2016 08:35:00 07/19/2016 16:00:00 DIS Outpatient MAUREEN GARCIA MD [facility] WOUNDCARE [id number] 06/07/2016 08:28:00 06/07/2016 16:00:00 DIS Outpatient MAUREEN GARCIA MD [facility] WOUNDCARE [id number] 04/01/2016 18:11:00 04/11/2016 16:15:00 DIS Inpatient ANDRIY BALL MD [facility] 4TH CELLULITIS RLE [id number] 07/23/2013 09:37:00 07/23/2013 11:33:00 DIS Emergency STEWART REBOLLAR DO [facility] ER LEFT LEG PAIN/NUMBNESS [id number] 02/20/2013 10:33:00 02/20/2013 13:00:00 DIS Emergency WILLIAM KISER MD [facility] ER LEFT LEG LAC [id number] 12/04/2012 10:05:00 12/04/2012 10:53:00 DIS Emergency GAVIN VAZQUEZ DO [facility] ER WOUND CHECK [id number] 12/02/2012 14:34:00 12/02/2012 16:51:00 DIS Emergency MIGUE DUPONT [facility] ER KNOT ON BACK OF NECK [id number] 11/01/2012 13:51:00 11/01/2012 15:01:00 DIS Emergency MIGUE DUPONT [facility] ER RASH [id number] 10/07/2012 13:32:00 10/07/2012 14:43:00 DIS Emergency KATHE LATIF MD [facility] ER FB RT EYE [id number] 01/30/2014 14:44:00 Document Registration [id number] 01/30/2014 14:44:00 Document Registration [id number] 05/06/2011 22:58:00 Document Registration [id number] 03/31/2011 13:50:00 Document Registration [id number] 05/27/2010 06:45:00 Document Registration [id number] 03/02/2010 15:56:00 Document Registration
--- NOTE | 2018-05-16 12:43 | Diagnostic Imaging Report ---
INDICATION: Cough. EXAMINATION: PA and lateral views of the chest are obtained. COMPARISON: Comparison is made to study of 04/15/2018. FINDINGS: Overall heart size and pulmonary vascularity remain within normal limits. There is mild increased density in the right parahilar region. Metallic fragments are again seen projecting over the upper right chest without significant change. Multiple old left rib fractures are again noted. There is no evidence of pneumothorax or consolidating infiltrate. IMPRESSION: Probable right parahilar atelectasis and/or pneumonitis with otherwise stable chronic findings in the chest. Dictated by: Dictated on workstation # [id number]
[2018-05-16] MEDS ORDERED: RT-ALBUTEROL/IPRATROPIUM 3 ML (DUONEB) VIAL INH ONE (13:15)
[2018-05-16] MEDS ORDERED: LIDOCAINE 1% INJ 20 ML 20 ML VIAL INJ ONE (13:15)
[2018-05-16] MEDS ORDERED: cefTRIAXone 1,000 MG/2.86 ml vial (IM ONLY) IM ONE (13:15)
[2018-05-16] MEDS ORDERED: predniSONE 20 MG TAB PO ONE (13:15)
--- NOTE | 2018-05-16 13:16 | ED Cough/URI ---
General Chief Complaint: Cough/Cold/Flu Symptoms Stated Complaint: COUGH;CONGESTION Nursing Triage Note: PT PRESENTS TO ER WITH COMPLAINT OF COUGH, CONGESTION. STATES THIS HAS BEEN GOING ON FOR TWO WEEKS. STATES HE IS COUGHING UP PHLEM AND IS HAVING TO PROP HIMSELF UP AT NIGHT TO SLEEP. Sepsis Screen: No Definite Risk Source: patient Exam Limitations: no limitations History of Present Illness Date Seen by Provider: May 16, 2018 Time Seen by Provider: 12:45 Initial Comments 47-year-old male patient presents to the emergency department with complaints of cough, congestion, wheezing, shortness of air 5-6 wks. Patient reports coughing up white phlegm. Does report having to prop himself up at nighttime on pillows due to congestion. Was seen in the emergency department one month ago and treated for bronchitis. Patient does report picking at the albuterol inhaler, Z-Mendoza, and Phenergan with codeine. Denies improvement in symptoms. Patient states he was supposed to be seen at [facility] as an outpatient today for this complaint, but states he was told to come to the emergency department due to wheezing and shortness of breath. Timing/Duration: other (1 month) Severity/Quality: productive cough Prior Episodes/Possible Cause: no prior episodes Modifying Factors: Worse With Coughing Allergies and Home Medications Allergies Coded Allergies: No Known Drug Allergies (Unverified , 07/23/13) Home Medications Azithromycin 250 Mg Tablet, 250 MG PO UD TAKE 2 TABLETS TODAY, THEN TAKE 1 TABLET DAILY FOR 4 MORE DAYS Prescribed by: GABRIELA LONDONO on 04/15/18 154 Cephalexin 500 Mg Capsule, 500 MG PO TID Prescribed by: MIGUE WILLIAMSON on 05/16/18 1320 Prednisone 20 Mg Tab, 40 MG PO DAILY Prescribed by: MIGUE WILLIAMSON on 05/16/18 1320 Promethazine/Dextromethorphan 473 Ml Syrup, 5 ML PO Q6H PRN for COUGH Prescribed by: GABRIELA LONDONO on 04/15/18 154 Patient Home Medication List Home Medication List Reviewed: Yes Review of Systems Review of Systems Constitutional: chills, fever, malaise EENTM: nose congestion; No ear discharge, No ear pain, No mouth pain, No nose pain, No throat pain, No throat swelling Respiratory: see HPI, cough; No dyspnea on exertion, No hemoptysis, No orthopnea; phlegm, short of breath; No stridor; wheezing Cardiovascular: No chest pain, No edema, No palpitations, No syncope Gastrointestinal: No abdominal pain, No constipation, No diarrhea, No loss of appetite, No nausea, No vomiting Genitourinary: no symptoms reported Musculoskeletal: no symptoms reported Skin: no symptoms reported Psychiatric/Neurological: No Symptoms Reported All Other Systems Reviewed Negative Unless Noted: Yes (Negative excepted noted.) Past Asbwgee-Vivmlt-Msjewr Hx Past Med/Social Hx: Reviewed Nursing Past Med/Soc Hx Patient Social History Alcohol Use: Occasionally Uses Number of Drinks Today: AA Alcohol Beverage of Choice: Beer Recreational Drug Use: No Smoking Status: Never a Smoker Recent Foreign Travel: No Contact w/Someone Who Travel: No Recent Infectious Disease Expo: No Recent Hopitalizations: No Immunizations Up To Date Tetanus Booster (TDap): Unknown PED Vaccines UTD: No Seasonal Allergies Seasonal Allergies: No Past Medical History Surgeries: Yes (HEART SURG AT ) Orthopedic, Valve Replacement Respiratory: No Cardiac: Yes Valvular Heart Disease Neurological: No Reproductive Disorders: No Genitourinary: No Gastrointestinal: No Musculoskeletal: No Endocrine: Yes Diabetes, Non-Insulin dep HEENT: No Cancer: No Psychosocial: No Integumentary: No Blood Disorders: No Adverse Reaction/Blood Tranf: No Family Medical History Reviewed Nursing Family Hx Diabetes mellitus 19 MOTHER Hypertension 19 FATHER 19 MOTHER No Pertinent Family Hx, Diabetes Physical Exam Vital Signs - First Documented 05/16/18 10:28 Temp 97.7 Pulse 93 Resp 20 B/P (MAP) 160/79 (106) Pulse Ox 96 O2 Delivery Room Air Capillary Refill : Less Than 3 Seconds Height: 5'4.00" Weight: 160lbs. 0oz. 72.863480if; 0.0 BMI Method:Stated General Appearance: WD/WN, no apparent distress HEENT: PERRL/EOMI, TMs normal, pharyngeal erythema, other ((+) nasal congestion ) Neck: non-tender, full range of motion, supple, lymphadenopathy (R), lymphadenopathy (L) Respiratory: lungs clear, no respiratory distress, no accessory muscle use, decreased breath sounds (in all lung valdes.) Cardiovascular: normal peripheral pulses, regular rate, rhythm, no edema, no gallop, no murmur Gastrointestinal: normal bowel sounds, non tender, soft, no organomegaly Extremities: no pedal edema, no calf tenderness, normal capillary refill Neurologic/Psychiatric: alert, normal mood/affect, oriented x 3 Skin: normal color, warm/dry Procedures/Interventions Suture Size: 4-0 Progress/Results/Core Measures Suspected Sepsis Recent Fever Within 48 Hours: No Infection Criteria Present: None New/Unexplained Altered Menta: No Sepsis Screen: No Definite Risk SIRS Temperature:97.7 Pulse: 93 Respiratory Rate: 20 Blood Pressure 160 /79 Mean: 106 Results/Orders Micro Results Microbiology 05/16/18 Influenza Types A,B Antigen (LAURA) - Final, Complete My Orders Orders - MIGUE WILLIAMSON Chest Pa/Lat (2 View) (05/16/18 12:08) Albuterol/Ipra Inhalation Soln (Duoneb I (05/16/18 13:15) Svn Small Volume Nebulizer (05/16/18 13:07) Prednisone Tablet (Deltasone Tablet) (05/16/18 13:15) Ceftriaxone For Im Use (Rocephin For Im (05/16/18 13:15) Lidocaine 1% Inj 20 Ml (Xylocaine 1% Inj (05/16/18 13:15) Medications Given in ED Current Medications Medications Dose Ordered Sig/Nelson Route Start Time Stop Time Status Last Admin Dose Admin Albuterol/ Ipratropium 3 ml ONCE ONCE INH 05/16/18 13:15 05/16/18 13:16 DC 05/16/18 13:29 3 ML Ceftriaxone Sodium 1,000 mg ONCE ONCE IM 05/16/18 13:15 05/16/18 13:16 DC 05/16/18 13:24 1,000 MG Lidocaine HCl 2.1 ml ONCE ONCE INJ 05/16/18 13:15 05/16/18 13:16 DC 05/16/18 13:24 2.1 ML Prednisone 40 mg ONCE ONCE PO 05/16/18 13:15 05/16/18 13:16 DC 05/16/18 13:24 40 MG Vital Signs/I&O 05/16/18 05/16/18 10:28 13:29 Temp 97.7 Pulse 93 Resp 20 B/P (MAP) 160/79 (106) Pulse Ox 96 94 O2 Delivery Room Air Room Air Capillary Refill : Less Than 3 Seconds Blood Pressure Mean: 106 Diagnostic Imaging Diagonstic Imaging: Xray Plain Films/CT/US/NM/MRI: chest Comments CHEST PA/LAT (2 VIEW) INDICATION: Cough. EXAMINATION: PA and lateral views of the chest are obtained. COMPARISON: Comparison is made to study of 04/15/2018. FINDINGS: Overall heart size and pulmonary vascularity remain within normal limits. There is mild increased density in the right parahilar region. Metallic fragments are again seen projecting over the upper right chest without significant change. Multiple old left rib fractures are again noted. There is no evidence of pneumothorax or consolidating infiltrate. IMPRESSION: Probable right parahilar atelectasis and/or pneumonitis with otherwise stable chronic findings in the chest. Dictated on workstation # [id number] Reviewed: Reviewed by Me (radiology report reviewed by me) Departure Impression Primary Impression: Acute pneumonitis Disposition: HOME, SELF-CARE Condition: Improved Departure-Patient Inst. Decision time for Depature: 13:17 Referrals: NO,LOCAL PHYSICIAN (PCP) Primary Care Physician [facility] Patient Instructions: Pneumonia, Adult (DC) Add. Discharge Instructions: All discharge instructions reviewed with patient and/or family. Voiced understanding. Medications as instructed. [facility] will fill your albuterol inhaler today. 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 Tylenol Extra Strength [id number]-[id number] as directed for pain if needed. Ibuprofen over the counter as needed for pain. Mucinex over the counter for congestion. Follow-up with [facility] for recheck next week. Call today for an appointment time. Return to the emergency department for worsened symptoms or any other concerns. Scripts Prednisone (Prednisone) 20 Mg Tab 40 MG PO DAILY, #8 TAB 0 Refills Prov: MIGUE WILLIAMSON 05/16/18 Cephalexin (Cephalexin) 500 Mg Capsule 500 MG PO TID, #21 CAP 0 Refills Prov: MIGUE WILLIAMSON 05/16/18 Work/School Note: Work Release Form Date Seen in the Emergency Department: May 16, 2018 Return to Work: May 17, 2018 Restrictions: No Restrictions Copy Copies To 1: [facility]/MIGUE ALCAZAR May 16, 2018 13:16
[2018-05-16] MEDS ORDERED: PRD20T PO (13:20)
[2018-05-16] MEDS ORDERED: CEPH500C PO (13:20)
[2018-05-16 14:11] VITALS: BP 160/79
== END 2018-05-16 14:11 | disposition home or self-care (01) ==
LOC: EDUNIT# 09:50 → ER 09:51
DX: J18.9 Pneumonia, unspecified organism (principal); E11.9 Type 2 diabetes mellitus without complications; Z82.49 Family history of ischemic heart disease and other diseases of the circulatory system; Z79.52 Long term (current) use of systemic steroids; Z95.2 Presence of prosthetic heart valve
CPT/HCPCS: 71046; 87804; 94640

== ENCOUNTER 2018-06-13 13:08 | Emergency (ER) | payer SELFPAY ==
[~2018-06-13] VITALS: Ht 165.1 cm; Wt 77.1 kg
[~2018-06-13 13:08] MED LIST changes: +CEPH500C PO; +PRD20T PO
[2018-06-13] MEDS ORDERED: SULF1TAB35 PO (13:20)
--- NOTE | 2018-06-13 13:20 | ED General ---
General Chief Complaint: Dizziness/Syncope Stated Complaint: BUG BITE History of Present Illness Date Seen by Provider: Jun 13, 2018 Time Seen by Provider: 13:17 Initial Comments Painful bump to the right side of his head. No known injury but is concerned this may be a spider bite. Noticed it yesterday and it was actually much larger yesterday Timing/Duration: 1-2 Days Severity: Moderate Allergies and Home Medications Allergies Coded Allergies: No Known Drug Allergies (Unverified , 07/23/13) Home Medications Azithromycin 250 Mg Tablet, 250 MG PO UD TAKE 2 TABLETS TODAY, THEN TAKE 1 TABLET DAILY FOR 4 MORE DAYS Prescribed by: GABRIELA LONDONO on 04/15/18 1543 Cephalexin 500 Mg Capsule, 500 MG PO TID Prescribed by: MIGUE WILLIAMSON on 05/16/18 1320 Prednisone 20 Mg Tab, 40 MG PO DAILY Prescribed by: MIGUE WILLIAMSON on 05/16/18 1320 Promethazine/Dextromethorphan 473 Ml Syrup, 5 ML PO Q6H PRN for COUGH Prescribed by: GABRIELA LONDONO on 04/15/18 1543 Patient Home Medication List Home Medication List Reviewed: Yes Review of Systems Review of Systems Constitutional: see HPI; No chills EENTM: see HPI Respiratory: no symptoms reported Cardiovascular: no symptoms reported Genitourinary: no symptoms reported Musculoskeletal: no symptoms reported Skin: no symptoms reported Psychiatric/Neurological: No Symptoms Reported Hematologic/Lymphatic: No Symptoms Reported Past Jqrcjfj-Nmnhku-Dqhylu Hx Patient Social History Alcohol Beverage of Choice: Beer Recent Hopitalizations: No Immunizations Up To Date Tetanus Booster (TDap): Unknown PED Vaccines UTD: No Seasonal Allergies Seasonal Allergies: No Past Medical History Surgeries: Yes (HEART SURG AT ) Orthopedic, Valve Replacement Respiratory: No Cardiac: Yes Valvular Heart Disease Neurological: No Reproductive Disorders: No Genitourinary: No Gastrointestinal: No Musculoskeletal: No Endocrine: Yes Diabetes, Non-Insulin dep HEENT: No Cancer: No Psychosocial: No Integumentary: No Blood Disorders: No Adverse Reaction/Blood Tranf: No Family Medical History Diabetes mellitus 19 MOTHER Hypertension 19 FATHER 19 MOTHER No Pertinent Family Hx, Diabetes Physical Exam Vital Signs Capillary Refill : Height, Weight, BMI Height: 5'4.00" Weight: 160lbs. 0oz. 72.337171to; 0.0 BMI Method:Stated General Appearance: No Apparent Distress, WD/WN Eyes: Bilateral Eye Normal Inspection, Bilateral Eye PERRL HEENT: PERRL/EOMI, TMs Normal, Other (there is a dime-sized fluctuant abscess to the right parietal scalp. Central punctum with minimal drainage, I was able to press on this and express some purulent material. Culture collected and sent to lab.) Respiratory: No Accessory Muscle Use, No Respiratory Distress Neurologic/Psychiatric: Alert, Oriented x3 Skin: Normal Color, Warm/Dry Procedures/Interventions Suture Size: 4-0 Progress/Results/Core Measures Suspected Sepsis SIRS Temperature: Pulse: Respiratory Rate: Blood Pressure / Mean: Results/Orders Vital Signs/I&O Capillary Refill : Departure Impression Primary Impression: Abscess Disposition: HOME, SELF-CARE Condition: Stable Departure-Patient Inst. Decision time for Depature: 13:19 Referrals: NO,LOCAL PHYSICIAN (PCP/Family) Primary Care Physician Patient Instructions: Skin Abscess Add. Discharge Instructions: 1. Warm compresses 2. Antibiotics as directed 3. You should notice improvement in about 2-3 days. Return to ER for any worsening. Follow-up with your doctor next week for recheck. All discharge instructions reviewed with patient and/or family. Voiced understanding. Scripts Sulfamethoxazole/Trimethoprim (Bactrim Ds Tablet) 1 Each Tablet 1 EACH PO BID, #14 TAB Prov: MARJ BARDALES APRN 06/13/18 Work/School Note: Work Release Form Date Seen in the Emergency Department: Jun 13, 2018 Return to Work: Jun 14, 2018 MARJ BARDALES APRN Jun 13, 2018 13:20
[2018-06-13 13:23] VITALS: BP 153/107
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
== END 2018-06-13 13:25 | disposition home or self-care (01) ==
LOC: EDUNIT# 13:08 → ER 13:09
DX: L02.811 Cutaneous abscess of head [any part, except face] (principal); E11.9 Type 2 diabetes mellitus without complications; Z82.49 Family history of ischemic heart disease and other diseases of the circulatory system; Z79.52 Long term (current) use of systemic steroids; Z95.2 Presence of prosthetic heart valve
CPT/HCPCS: 87070; 87077; 87186; 87205; 99283

== ENCOUNTER 2018-06-28 12:54 | Emergency (ER) | payer SELFPAY ==
[~2018-06-28] VITALS: Ht 162.6 cm; Wt 77.1 kg
--- NOTE | 2018-06-28 13:43 | ED General ---
General Chief Complaint: Facial Problems Stated Complaint: FACIAL SWELLING Nursing Triage Note: pt presents with facial redness and swelling x 2 days accompanied with headache and blurred vision ("hard to focus sometimes"). pt denies any injury, SOB, and tongue swelling. Nursing Sepsis Screen: No Definite Risk Source of Information: Patient Exam Limitations: No Limitations History of Present Illness Date Seen by Provider: Jun 28, 2018 Time Seen by Provider: 13:25 Initial Comments This 47-year-old gentleman presents to the emergency room with complaints of facial erythema and swelling for the past 2 days. This particularly affects his eyes and he has some blurred vision as result. He also has some headache. The erythema is pruritic and not painful. He denies any new exposures. 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 He did work outside extensively recently when it was windy. He was working in [employer] and [employer] [place] - [employer]. He has not taken any medications for his symptoms. He is requesting injection therapy as he cannot afford medications until he gets pain next week. Allergies and Home Medications Allergies Coded Allergies: No Known Drug Allergies (Unverified , 07/23/13) Home Medications Azithromycin 250 Mg Tablet, 250 MG PO UD TAKE 2 TABLETS TODAY, THEN TAKE 1 TABLET DAILY FOR 4 MORE DAYS Prescribed by: GABRIELA LONDONO on 04/15/18 1543 Cephalexin 500 Mg Capsule, 500 MG PO TID Prescribed by: MIGUE WILLIAMSON on 05/16/18 1320 Prednisone 20 Mg Tab, 40 MG PO DAILY Prescribed by: MIGUE WILLIAMSON on 05/16/18 1320 Promethazine/Dextromethorphan 473 Ml Syrup, 5 ML PO Q6H PRN for COUGH Prescribed by: GABRIELA LONDONO on 04/15/18 1543 Sulfamethoxazole/Trimethoprim 1 Each Tablet, 1 EACH PO BID Prescribed by: MARJ BARDALES on 06/13/18 1320 Patient Home Medication List Home Medication List Reviewed: Yes Review of Systems Review of Systems Constitutional: no symptoms reported EENTM: see HPI Respiratory: no symptoms reported Cardiovascular: no symptoms reported Gastrointestinal: no symptoms reported Genitourinary: no symptoms reported Musculoskeletal: no symptoms reported Skin: see HPI Psychiatric/Neurological: No Symptoms Reported Hematologic/Lymphatic: No Symptoms Reported Past Ttjymri-Ytmluv-Tzcfuy Hx Patient Social History Alcohol Use: Denies Use Number of Drinks Today: AA Alcohol Beverage of Choice: Beer Recreational Drug Use: No 2nd Hand Smoke Exposure: No Recent Foreign Travel: No Contact w/Someone Who Travel: No Recent Infectious Disease Expo: No Recent Hopitalizations: No Immunizations Up To Date Tetanus Booster (TDap): Unknown PED Vaccines UTD: No Seasonal Allergies Seasonal Allergies: No Past Medical History Surgeries: Yes (HEART SURG AT ) Orthopedic, Valve Replacement Respiratory: No Cardiac: Yes Valvular Heart Disease Neurological: No Reproductive Disorders: No Genitourinary: No Gastrointestinal: No Musculoskeletal: No Endocrine: Yes Diabetes, Non-Insulin dep HEENT: No Cancer: No Psychosocial: No Integumentary: No Blood Disorders: No Adverse Reaction/Blood Tranf: No Family Medical History Reviewed Nursing Family Hx Diabetes mellitus 19 MOTHER Hypertension 19 FATHER 19 MOTHER No Pertinent Family Hx, Diabetes Physical Exam Vital Signs Vital Signs - First Documented 06/28/18 06/28/18 13:08 14:12 Temp 97.5 Pulse 77 Resp 18 B/P (MAP) 142/91 (108) Pulse Ox 97 O2 Delivery Room Air Capillary Refill : Less Than 3 Seconds Height, Weight, BMI Height: 5'4.00" Weight: 170lbs. 0oz. 77.410354hn; 0.0 BMI Method:Stated General Appearance: No Apparent Distress, WD/WN HEENT: PERRL/EOMI, Pharynx Normal, Other (erythema encompassing most of his face. Erythema and edema especially around the periorbital regions. There is edema of the conjunctiva. Eyes are watery.) Neck: Normal Inspection Respiratory: Lungs Clear, Normal Breath Sounds, No Accessory Muscle Use, No Respiratory Distress Cardiovascular: Regular Rate, Rhythm, No Edema, No Murmur Gastrointestinal: Non Tender, Soft Extremity: Normal Inspection, No Pedal Edema Neurologic/Psychiatric: Alert, Oriented x3, No Motor/Sensory Deficits, Normal Mood/Affect, spectral scientist II-XII Norm as Tested Skin: Normal Color, Warm/Dry, Erythema (facial) Procedures/Interventions Suture Size: 4-0 Progress/Results/Core Measures Suspected Sepsis Recent Fever Within 48 Hours: No Infection Criteria Present: Suspected New Infection New/Unexplained Altered Menta: No Sepsis Screen: No Definite Risk SIRS Temperature:97.5 Pulse: 77 Respiratory Rate: 18 Blood Pressure 142 /91 Mean: 108 Results/Orders Lab Results Laboratory Tests Test 06/28/18 13:46 Range/Units Glucometer 253 H 70-110 MG/DL My Orders Orders - MIGUEL ANGEL HARE MD Methylprednisolone Acetate Inj (Depo-Med (06/28/18 13:45) Diphenhydramine Injection (Benadryl Inje (06/28/18 13:45) Famotidine Tablet (Pepcid Tablet) (06/28/18 13:45) Accucheck Stat ONCE (06/28/18 13:47) Methylprednisolone Acetate Inj (Depo-Med (06/28/18 14:00) Medications Given in ED Vital Signs/I&O Capillary Refill : Less Than 3 Seconds Blood Pressure Mean: 108 Progress Note : Progress Note Patient was requesting a steroid injection. However, he was noted to have significant episodes of hyperglycemia in the past when his chart was reviewed. Patient initially denied diabetes, but it is clear that he does have diabetes. Blood sugar was checked again today and was 253. Because of this a reduced dose of Solu-Medrol was administered. We only gave 200 mg. An injection of Benadryl was also given. I gave detailed instructions on nfpf-bia-olrbwvp medication use and strict instructions for follow-up in the clinic to help manage his diabetes. Departure Impression Primary Impression: Allergic conjunctivitis Qualified Codes: H10.13 - Acute atopic conjunctivitis, bilateral Additional Impressions: Facial dermatitis Diabetes type 2, uncontrolled Qualified Codes: E11.65 - Type 2 diabetes mellitus with hyperglycemia Disposition: 01 HOME, SELF-CARE Condition: Improved Departure-Patient Inst. Decision time for Depature: 13:38 Referrals: NO,LOCAL PHYSICIAN (PCP/Family) Primary Care Physician Patient Instructions: DIABETES, Dermatitis, Diabetes Diet Add. Discharge Instructions: You may use a long-acting nondrowsy antihistamine such as loratadine or cetirizine. To treat more intense itching or more intense symptoms, tried Benadryl ( diphenhydramine) up to 50 mg every 4 hours as needed. Please be aware this may make you drowsy. You may also add zxpx-pld-fllixpy antihistamine eyedrops such as Zaditor ( Ketotifen) to help with eye symptoms. Follow-up with your primary care provider if this is not helping. Return to the emergency room if symptoms worsen, especially if you have any involvement of tongue swelling, lip swelling, throat swelling, or difficulty breathing. You have now had multiple blood sugars over 200. This means you most likely have diabetes. Please eat a diet very low in carbohydrates and sugars. Continue to exercise as much as possible. Stay well-hydrated. Follow up with your primary care provider as soon as possible to discuss treatment of diabetes. All discharge instructions reviewed with patient and/or family. Voiced understanding. Work/School Note: Work Release Form Date Seen in the Emergency Department: Jun 28, 2018 Return to Work: Jun 29, 2018 Restrictions: No Restrictions Copy Copies To 1: HETAL KEBEDE MD, JOSHUA T MD Jun 28, 2018 13:43
[2018-06-28] MEDS ORDERED: FAMOTIDINE 20 MG (PEPCID) TABLET PO ONE (13:45)
[2018-06-28] MEDS ORDERED: methylPREDNISolone 80 MG/ML (DEPO MEDROL) VIAL IM ONE ×2 (13:45→14:00)
[2018-06-28] MEDS ORDERED: diphenhydrAMINE 50 MG/ML INJ (BENADRYL) IM ONE (13:45)
[2018-06-28 14:12] VITALS: BP 142/91
== END 2018-06-28 14:10 | disposition home or self-care (01) ==
LOC: EDUNIT# 12:54 → ER 12:55
DX: H10.13 Acute atopic conjunctivitis, bilateral (principal); L30.9 Dermatitis, unspecified; E11.9 Type 2 diabetes mellitus without complications; Z79.52 Long term (current) use of systemic steroids; Z95.2 Presence of prosthetic heart valve; Z86.69 Personal history of other diseases of the nervous system and sense organs
CPT/HCPCS: 82962

== ENCOUNTER 2018-07-22 08:48 | Emergency (ER) | payer SELFPAY ==
[~2018-07-22] VITALS: Ht 165.1 cm; Wt 77.1 kg
[2018-07-22 08:57] VITALS: BP 148/62
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
[2018-07-22] MEDS ORDERED: PRD20T PO (09:11)
== END 2018-07-22 09:16 | disposition home or self-care (01) ==
LOC: EDUNIT# 08:48 → ER 08:49
DX: G56.02 Carpal tunnel syndrome, left upper limb (principal); E11.9 Type 2 diabetes mellitus without complications; Z79.52 Long term (current) use of systemic steroids; Z95.2 Presence of prosthetic heart valve; Z82.49 Family history of ischemic heart disease and other diseases of the circulatory system
CPT/HCPCS: 99282

== ENCOUNTER 2018-11-23 07:54 | Emergency (ER) | payer OTHER ==
[~2018-11-23] VITALS: Ht 165.1 cm; Wt 91.0 kg
[2018-11-23] MEDS ORDERED: MOME15CR17 TP (08:36)
[2018-11-23] MEDS ORDERED: MUPI1OIN6 TP (08:36)
[2018-11-23] MEDS ORDERED: METH4TAB PO (08:36)
[2018-11-23] MEDS ORDERED: SULF1TAB35 PO (08:36)
--- NOTE | 2018-11-23 08:36 | ED Integumentary General ---
General Chief Complaint: Skin/Wound Problems Stated Complaint: HANDS PEELING / CRACKED Nursing Triage Note: Patient ambulatory to ER FT1 with complaint of bilateral hands cracking and peeling. Patient states this has been present x 1 week. He does work at [employer] and thinks this contributes to the skin problem. he has been putting lotion and neosporin on the hands with no relief. Allergies and Home Medications Allergies Coded Allergies: No Known Drug Allergies (Unverified , 07/23/13) Home Medications Methylprednisolone 4 Mg Tab.ds.pk, 4 MG PO UD Prescribed by: STEWART REBOLLAR on 11/23/18 0836 Mometasone Furoate 15 Gm Cream..g., 0 TP TID Prescribed by: STEWART REBOLLAR on 11/23/18 0836 Mupirocin 1 Gm Oin.pf.mariano, 1 GM TP BID Prescribed by: STEWART REBOLLAR on 11/23/18 0836 Prednisone 20 Mg Tab, 20 MG PO BID Prescribed by: KALEN CASAREZ on 07/22/18 0911 Sulfamethoxazole/Trimethoprim 1 Each Tablet, 1 EACH PO BID Prescribed by: STEWART REBOLLAR on 11/23/18 0836 Past Njecgxs-Iqplmt-Lzuwdi Hx Patient Social History Alcohol Use: Denies Use Number of Drinks Today: AA Alcohol Beverage of Choice: Beer Recreational Drug Use: No Smoking Status: Never a Smoker 2nd Hand Smoke Exposure: No Recent Foreign Travel: No Contact w/Someone Who Travel: No Recent Infectious Disease Expo: No Recent Hopitalizations: No Physical Abuse: No Sexual Abuse: No Mistreated: No Fear: No Immunizations Up To Date Tetanus Booster (TDap): Unknown PED Vaccines UTD: No Seasonal Allergies Seasonal Allergies: No Past Medical History Surgeries: Yes (HEART SURG AT ) Orthopedic, Valve Replacement Respiratory: No Cardiac: Yes Valvular Heart Disease Neurological: No Reproductive Disorders: No Genitourinary: No Gastrointestinal: No Musculoskeletal: No Endocrine: Yes Diabetes, Non-Insulin dep HEENT: No Cancer: No Psychosocial: No Integumentary: No Blood Disorders: No Adverse Reaction/Blood Tranf: No Family Medical History Diabetes mellitus 19 MOTHER Hypertension 19 FATHER 19 MOTHER No Pertinent Family Hx, Diabetes Physical Exam Vital Signs Vital Signs - First Documented 11/23/18 07:55 Temp 36.2 Pulse 75 Resp 18 B/P (MAP) 156/104 (121) Pulse Ox 97 O2 Delivery Room Air Capillary Refill : Less Than 3 Seconds Procedures/Interventions Suture Size: 4-0 Progress/Results/Core Measures Results/Orders Vital Signs/I&O 11/23/18 07:55 Temp 36.2 Pulse 75 Resp 18 B/P (MAP) 156/104 (121) Pulse Ox 97 O2 Delivery Room Air Blood Pressure Mean: 121 Departure Impression Primary Impression: Hand dermatitis Disposition: HOME, SELF-CARE Condition: Stable Departure-Patient Inst. Referrals: NO,LOCAL PHYSICIAN (PCP/Family) Primary Care Physician Patient Instructions: Dermatitis Add. Discharge Instructions: USE NON-LATEX PRODUCTS TYLENOL AND MOTRIN NEEDED FOR PAIN FOLLOW UP WITH YOUR DR IN 3-4 DAYS FOR RECHECK All discharge instructions reviewed with patient and/or family. Voiced understanding. Scripts Mupirocin (Mupirocin) 1 Gm Oin.pf.mariano 1 GM TP BID, #22 TUBE Prov: STEWART REBOLLAR DO 11/23/18 Methylprednisolone (Medrol) 4 Mg Tab.ds.pk 4 MG PO UD, #1 PKG Prov: STEWART REBOLLAR DO 11/23/18 Mometasone Furoate (Elocon) 15 Gm Cream..g. 0 TP TID, #1 TUBE Prov: STEWART REBOLLAR DO 11/23/18 Sulfamethoxazole/Trimethoprim (Bactrim Ds Tablet) 1 Each Tablet 1 EACH PO BID, #20 TAB Prov: STEWART REBOLLAR DO 11/23/18 Work/School Note: Work Release Form Date Seen in the Emergency Department: Nov 23, 2018 STEWART REBOLLAR DO Nov 23, 2018 08:36
[2018-11-23 08:58] VITALS: BP 156/104
== END 2018-11-23 08:59 | disposition home or self-care (01) ==
LOC: EDUNIT# 07:54 → ER 07:55
DX: L30.9 Dermatitis, unspecified (principal); E11.9 Type 2 diabetes mellitus without complications; Z79.52 Long term (current) use of systemic steroids; Z95.2 Presence of prosthetic heart valve; Z82.49 Family history of ischemic heart disease and other diseases of the circulatory system
CPT/HCPCS: 99282

== ENCOUNTER 2019-01-08 19:00 | Emergency (ER) | payer OTHER ==
[~2019-01-08] VITALS: Ht 165 cm; Wt 81.6 kg
[~2019-01-08 19:00] MED LIST changes: +MOME15CR17 TP; +MUPI1OIN6 TP
[2019-01-08 20:05] LABS: BASOPHILS % (AUTO) 0 % (0-10); EOSINOPHILS # (AUTO) 0.1 10^3/uL (0.0-0.3); EOSINOPHILS % (AUTO) 1 % (0-10); HEMATOCRIT 42 % (40-54); HEMOGLOBIN 13.9 G/DL (13.3-17.7); LYMPHOCYTES # (AUTO) 1.5 X 10^3 (1.0-4.0); LYMPHOCYTES % (AUTO) 22 % (12-44); MEAN CORPUSCULAR HEMOGLOBIN 27 PG (25-34); MEAN CORPUSCULAR HGB CONC 33 G/DL (32-36); MEAN CORPUSCULAR VOLUME 82 FL (80-99); MEAN PLATELET VOLUME 10.8 FL (7.4-10.4); MONOCYTES # (AUTO) 0.5 X 10^3 (0.0-1.0); MONOCYTES % (AUTO) 8 % (0-12); NEUTROPHILS # (AUTO) 4.8 X 10^3 (1.8-7.8); NEUTROPHILS % (AUTO) 69 % (42-75); PLATELET COUNT 213 10^3/uL (130-400); RED CELL DISTRIBUTION WIDTH 14.3 % (10.0-14.5); WHITE BLOOD COUNT 6.9 10^3/uL (4.3-11.0)
[2019-01-08 20:09] LABS: BILIRUBIN,URINE NEGATIVE (NEGATIVE); CLARITY,URINE CLEAR; COLOR,URINE YELLOW; GLUCOSE, URINE (UA) NEGATIVE (NEGATIVE); KETONES,URINE NEGATIVE (NEGATIVE); LEUKOCYTE ESTERASE ,URINE NEGATIVE (NEGATIVE); NITRITE,URINE NEGATIVE (NEGATIVE); PH,URINE 6 (5-9); PROTEIN,URINE 1+ (NEGATIVE)
--- NOTE | 2019-01-08 20:09 | ED Upper Extremity ---
General Chief Complaint: Upper Extremity Stated Complaint: L ARM PAIN Nursing Triage Note: c/o right arm pain and got dizzy when reaching over his head today. denies chest pain Nursing Sepsis Screen: No Definite Risk History of Present Illness Date Seen by Provider: Jan 08, 2019 Time Seen by Provider: 19:10 Initial Comments 48 year old little patient presents with left arm pain, patient reports that this pain started yesterday. 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 Patient reports that he was lifting a box and placing it on a machine when he became dizzy. Patient denies having dizziness, nausea, shortness of breath or radiation of pain. Patient re ports taking aspirin and Tylenol for the pain last night but denies taking anything for the pain today. 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 Patient reports he was followed by a analytics architect until he was 16 and has not had routine cardiology visit since. Patient denies taking medication daily. He does not have a PCP. Onset: yesterday Severity: mild Pain/Injury Location: left shoulder, left arm Modifying Factors: Improves With Movement Allergies and Home Medications Allergies Coded Allergies: No Known Drug Allergies (Unverified , 07/23/13) Home Medications Methylprednisolone 4 Mg Tab.ds.pk, 4 MG PO UD Prescribed by: STEWART REBOLLAR on 11/23/18835 Mometasone Furoate 15 Gm Cream..g., 0 TP TID Prescribed by: STEWART REBOLLAR on 11/23/18835 Mupirocin 1 Gm Oin.pf.mariano, 1 GM TP BID Prescribed by: STEWART REBOLLAR on 11/23/18835 Prednisone 20 Mg Tab, 20 MG PO BID Prescribed by: KALEN COSTA on 07/22/18 0911 Sulfamethoxazole/Trimethoprim 1 Each Tablet, 1 EACH PO BID Prescribed by: STEWART REBOLLAR on 11/23/18 08 Patient Home Medication List Home Medication List Reviewed: Yes Review of Systems Constitutional: no symptoms reported EENTM: see HPI, no symptoms reported Respiratory: no symptoms reported, see HPI Cardiovascular: no symptoms reported, see HPI Gastrointestinal: no symptoms reported, see HPI Genitourinary: no symptoms reported, see HPI Musculoskeletal: no symptoms reported, see HPI Skin: other (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) Psychiatric/Neurological: No Symptoms Reported, See HPI All Other Systems Reviewed Negative Unless Noted: Yes Past Lyzymhu-Pgwupd-Knhwwl Hx Past Med/Social Hx: Reviewed Nursing Past Med/Soc Hx Patient Social History Alcohol Use: Occasionally Uses Number of Drinks Today: AA Alcohol Beverage of Choice: Beer Recreational Drug Use: No 2nd Hand Smoke Exposure: No Recent Foreign Travel: No Contact w/Someone Who Travel: No Recent Infectious Disease Expo: No Recent Hopitalizations: No Physical Abuse: No Sexual Abuse: No Mistreated: No Fear: No Immunizations Up To Date Tetanus Booster (TDap): Unknown PED Vaccines UTD: No Seasonal Allergies Seasonal Allergies: No Past Medical History Surgeries: Yes (HEART SURG AT ) Cardiac, Orthopedic, Valve Replacement Respiratory: No (recent occasional cough) Cardiac: Yes Congenital Heart Disease, Valvular Heart Disease Neurological: No Reproductive Disorders: No Genitourinary: No Gastrointestinal: No Musculoskeletal: No Endocrine: Yes Diabetes, Non-Insulin dep HEENT: No Cancer: No Psychosocial: No Integumentary: No Blood Disorders: No Adverse Reaction/Blood Tranf: No Family Medical History Diabetes mellitus 19 MOTHER Hypertension 19 FATHER 19 MOTHER No Pertinent Family Hx, Diabetes Physical Exam Vital Signs Vital Signs - First Documented 01/08/19 19:06 Temp 36.6 Pulse 76 Resp 18 B/P (MAP) 165/105 (125) Pulse Ox 97 Capillary Refill : Less Than 3 Seconds Height, Weight, BMI Height: 5'5.00" Weight: 170lbs. 0oz. [id number]; 29.00 BMI Method:Stated General Appearance: WD/WN, no apparent distress HEENT: PERRL/EOMI, normal ENT inspection Neck: non-tender, full range of motion, normal inspection, tender lateral (left trapezius, TTP) Cardiovascular: normal peripheral pulses, regular rate, rhythm, no edema, no murmur Respiratory: chest non-tender, lungs clear, normal breath sounds, no respiratory distress Gastrointestinal: normal bowel sounds, non tender, soft Back: normal inspection, no CVA tenderness, no vertebral tenderness Shoulder: normal inspection, no evidence of injury, soft tissue tenderness (trapezius muscle tenderness on palpitation) Elbow/Forearm: normal inspection, non-tender, no evidence of injury, normal ROM Wrist: Yes normal inspection, Yes non-tender, Yes no evidence of injury Hand: normal inspection, non-tender, no evidence of injury Neurologic/Tendon: normal sensation, normal motor functions 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, no motor/sensory deficits, alert, normal mood/affect, oriented x 3 Skin: normal color, warm/dry Procedures/Interventions Suture Size: 4-0 Progress/Results/Core Measures Results/Orders Lab Results Laboratory Tests Test 01/08/19 19:50 Range/Units White Blood Count 6.9 4.3-11.0 10^3/uL Red Blood Count 5.09 4.35-5.85 10^6/uL Hemoglobin 13.9 13.3-17.7 G/DL Hematocrit 42 40-54 % Mean Corpuscular Volume 82 80-99 FL Mean Corpuscular Hemoglobin 27 25-34 PG Mean Corpuscular Hemoglobin Concent 33 32-36 G/DL Red Cell Distribution Width 14.3 10.0-14.5 % Platelet Count 213 130-400 10^3/uL Mean Platelet Volume 10.8 H 7.4-10.4 FL Neutrophils (%) (Auto) 69 42-75 % Lymphocytes (%) (Auto) 22 12-44 % Monocytes (%) (Auto) 8 0-12 % Eosinophils (%) (Auto) 1 0-10 % Basophils (%) (Auto) 0 0-10 % Neutrophils # (Auto) 4.8 1.8-7.8 X 10^3 Lymphocytes # (Auto) 1.5 1.0-4.0 X 10^3 Monocytes # (Auto) 0.5 0.0-1.0 X 10^3 Eosinophils # (Auto) 0.1 0.0-0.3 10^3/uL Basophils # (Auto) 0.0 0.0-0.1 10^3/uL Prothrombin Time 12.9 12.2-14.7 SEC INR Comment 0.9 0.8-1.4 Activated Partial Thromboplast Time 37 H 24-35 SEC Urine Color YELLOW Urine Clarity CLEAR Urine pH 6 5-9 Urine Specific [place] 1.015 L 1.016-1.022 Urine Protein 1+ H NEGATIVE Urine Glucose (UA) NEGATIVE NEGATIVE Urine Ketones NEGATIVE NEGATIVE Urine Nitrite NEGATIVE NEGATIVE Urine Bilirubin NEGATIVE NEGATIVE Urine Urobilinogen NORMAL NORMAL MG/DL Urine Leukocyte Esterase NEGATIVE NEGATIVE Urine RBC (Auto) NEGATIVE NEGATIVE Urine RBC NONE /HPF Urine WBC NONE /HPF Urine Squamous Epithelial Cells 0-2 /HPF Urine Crystals NONE /LPF Urine Bacteria NEGATIVE /HPF Urine Casts NONE /LPF Urine Mucus NEGATIVE /LPF Urine Culture Indicated NO Sodium Level 138 135-145 MMOL/L Potassium Level 3.9 3.6-5.0 MMOL/L Chloride Level 102 98-107 MMOL/L Carbon Dioxide Level 25 21-32 MMOL/L Anion Gap 11 5-14 MMOL/L Blood Urea Nitrogen 11 7-18 MG/DL Creatinine 0.79 0.60-1.30 MG/DL Estimat Glomerular Filtration Rate > 60 BUN/Creatinine Ratio 14 Glucose Level 178 H 70-105 MG/DL Calcium Level 9.2 8.5-10.1 MG/DL Corrected Calcium 9.0 8.5-10.1 MG/DL Total Bilirubin 0.5 0.1-1.0 MG/DL Aspartate Amino Transf (AST/SGOT) 20 5-34 U/L Alanine Aminotransferase (ALT/SGPT) 29 0-55 U/L Alkaline Phosphatase 90 40-136 U/L Troponin I < 0.028 <0.028 NG/ML C-Reactive Protein High Sensitivity 0.97 H 0.00-0.50 MG/DL Total Protein 7.7 6.4-8.2 GM/DL Albumin 4.2 3.2-4.5 GM/DL Amylase Level 78 25-125 U/L Lipase 27 8-78 U/L TSH [place] Testing 2.48 0.35-4.94 UIU/ML Urine Opiates Screen NEGATIVE NEGATIVE Urine Oxycodone Screen NEGATIVE NEGATIVE Urine Methadone Screen NEGATIVE NEGATIVE Urine Propoxyphene Screen NEGATIVE NEGATIVE Urine Barbiturates Screen NEGATIVE NEGATIVE Ur Tricyclic Antidepressants Screen NEGATIVE NEGATIVE Urine Phencyclidine Screen NEGATIVE NEGATIVE Urine Amphetamines Screen NEGATIVE NEGATIVE Urine Methamphetamines Screen NEGATIVE NEGATIVE Urine Benzodiazepines Screen NEGATIVE NEGATIVE Urine Cocaine Screen NEGATIVE NEGATIVE Urine Cannabinoids Screen NEGATIVE NEGATIVE My Orders Orders - DAMIAN CHÁVEZ TEACHING AIDE Ekg Tracing (01/08/19 19:23) Cbc With Automated Diff (01/08/19 19:58) Comprehensive Metabolic Panel (01/08/19 19:58) Hs C Reactive Protein (01/08/19 19:58) Protime With Inr (01/08/19 19:58) Partial Thromboplastin Time (01/08/19 19:58) Thyroid Analyzer (01/08/19 19:58) Troponin I (01/08/19 19:58) Drug Screen Stat (Urine) (01/08/19 19:59) Ua Culture If Indicated (01/08/19 19:59) Amylase (01/08/19 19:59) Lipase (01/08/19 19:59) Iv/Invasive Line Insertion .IV start (01/08/19 20:19) Vital Signs/I&O 01/08/19 01/08/19 19:06 21:01 Temp 36.6 Pulse 76 69 Resp 18 22 B/P (MAP) 165/105 (125) 162/107 (125) Pulse Ox 97 99 Blood Pressure Mean: 125 POS Progress Progress Note : Time: 19:10 Progress Note Patient seen and evaluated. We'll obtain EKG and then consideration for labs. 1939 EKG shows nonspecific changes but no previous to compare. Will obtain labs and reevaluate. 2029 patient reports his symptoms be improving. CBC is within normal limits electrolytes are normal. Awaiting troponin and thyroid. 2099 troponin and thyroid within normal limits. Discharge instructions discussed with the patient. Stressed the importance of following up in establishing care w ith a PCP to evaluate and possibly treat for hypertension and to monitor her glucose. Discussed lifestyle modifications, patient opened these ideas. All questions answered. Initial ECG Impression Date: Jan 08, 2019 Initial ECG Impression Time: 19:36 Initial ECG Rate: 73 Initial ECG Rhythm: Normal Sinus Initial ECG Intervals EKG reviewed with Dr. Costa and concurred with interpretation of sinus rhythm with borderline left axis deviation with repolarization abnormality which possibly suggest ischemia in the lateral leads Rate 73 MN 200 QRS 5104 QT 404 [place] P 24 QRS -23 Initial ECG Impression: Nonspecific Changes Initial ECG Comparisson: No Previous ECG Available Departure Impression Primary Impression: Strain of cervical portion of left trapezius muscle Disposition: HOME, SELF-CARE Condition: Improved Departure-Patient Inst. Decision time for Depature: 20:50 Referrals: NO,LOCAL PHYSICIAN (PCP/Family) Primary Care Physician Patient Instructions: Cervical Muscle Strain (DC) Add. Discharge Instructions: Follow-up with your primary care provider regarding your blood pressure Apply warm moist heat to the left shoulder for 20 minutes every hour while awake For the pain you may Alternate acetaminophen (Tylenol) 1000 mg and ibuprofen (Motrin) 600 mg every 4 hours Return to the emergency department for new emergent concerns All discharge instructions reviewed with patient and/or family. Voiced understanding. DAMIAN CHÁVEZ Jan 08, 2019 20:09 POS
[2019-01-08 20:16] LABS: BACTERIA,URINE NEGATIVE /HPF; SQUAMOUS EPITHELIAL CELL,UR 0-2 /HPF
[2019-01-08 20:18] LABS: INR 0.9 (0.8-1.4); PROTHROMBIN TIME PATIENT 12.9 SEC (12.2-14.7)
[2019-01-08 20:21] LABS: AMPHETAMINE SCREEN, URINE NEGATIVE (NEGATIVE); BARBITURATE SCREEN URINE NEGATIVE (NEGATIVE); BENZODIAZEPINES SCREEN URINE NEGATIVE (NEGATIVE); CANNABINOID SCREEN, URINE NEGATIVE (NEGATIVE); COCAINE SCREEN URINE NEGATIVE (NEGATIVE); METHADONE STAT NEGATIVE (NEGATIVE); METHAMPHETAMINE SCREEN URINE S NEGATIVE (NEGATIVE); OPIATE SCREEN URINE NEGATIVE (NEGATIVE); OXYCODONE STAT NEGATIVE (NEGATIVE); PROPOXYPHENE STAT NEGATIVE (NEGATIVE); TRICYCLIC ANTIDEPRESSANTS SCRE NEGATIVE (NEGATIVE)
[2019-01-08 20:23] LABS: ALANINE AMINOTRANSFERASE 29 U/L (0-55); ALBUMIN 4.2 GM/DL (3.2-4.5); ALKALINE PHOSPHATASE 90 U/L (40-136); AMYLASE 78 U/L (25-125); BILIRUBIN,TOTAL 0.5 MG/DL (0.1-1.0); BUN/CREATININE RATIO 14; CALCIUM 9.2 MG/DL (8.5-10.1); CARBON DIOXIDE 25 MMOL/L (21-32); CHLORIDE 102 MMOL/L (98-107); CREATININE SERUM 0.79 MG/DL (0.60-1.30); GFR ESTIMATED > 60; GLUCOSE 178 MG/DL (70-105); LIPASE 27 U/L (8-78); POTASSIUM 3.9 MMOL/L (3.6-5.0); SODIUM 138 MMOL/L (135-145); TOTAL PROTEIN 7.7 GM/DL (6.4-8.2)
[2019-01-08 20:43] LABS: TSH (THYROID ANALYZER) 2.48 UIU/ML (0.35-4.94)
[2019-01-08 21:01] VITALS: BP 162/107
== END 2019-01-08 21:01 | disposition home or self-care (01) ==
LOC: EDUNIT# 19:00 → ER 19:01
DX: S29.012A Strain of muscle and tendon of back wall of thorax, initial encounter (principal); E11.9 Type 2 diabetes mellitus without complications; Z79.82 Long term (current) use of aspirin; Z79.52 Long term (current) use of systemic steroids; Z79.51 Long term (current) use of inhaled steroids; Z82.49 Family history of ischemic heart disease and other diseases of the circulatory system; Z95.2 Presence of prosthetic heart valve; X50.0XXA Overexertion from strenuous movement or load, initial encounter
CPT/HCPCS: 36415; 80053; 80306; 81000; 82150; 83690; 84443; 84484; 85025; 85610; 85730; 86141; 93005